=== PATIENT | male | born 1940 | race Caucasian/White ===

== ENCOUNTER 2020-02-29 13:22 | Inpatient (IN) | payer MEDICARE ==
[2020-02-29] MEDS ORDERED: SODIUM CHLORIDE 0.9% 1,000 ML IV STA (13:43)
[2020-02-29] MEDS ORDERED: MORPHINE SULFATE 4 MG/ML SYRINGE IV STA (13:43)
--- NOTE | 2020-02-29 13:46 | ED ---
General Adult HPI - General Chief complaint: Extremity Injury, Lower Stated complaint: Fall Time Seen by Provider: 02/29/20 13:29 Source: patient, EMS, RN notes reviewed Mode of arrival: EMS Limitations: altered mental status, physical limitation - History of Present Illness Initial comments: Patient is a pleasant 79-year-old male presenting to the emergency department secondary to concerns for hip fracture. [facility] is a poor historian. Patient states she does fall frequently. Patient states he fell last 3 days ago. Patient did have x-ray done showing fracture of the right hip. Patient denies any other area of complaint. Patient does request pain medication and this has been ordered. No head injury or loss of consciousness. - Related Data Allergies Allergy/AdvReac Type Severity Reaction Status Date / Time Tzxqwca-Gtf-Ojc Reductase Allergy Unknown Verified 02/29/20 13:33 Inhibitor Review of Systems ROS Statement: Those systems with pertinent positive or pertinent negative responses have been documented in the HPI. ROS Other: All systems not noted in ROS Statement are negative. Constitutional: Denies: fever Eyes: Denies: eye pain ENT: Denies: ear pain Respiratory: Denies: cough, dyspnea Cardiovascular: Denies: chest pain Endocrine: Denies: fatigue Gastrointestinal: Denies: abdominal pain Genitourinary: Denies: dysuria Musculoskeletal: Reports: as per HPI. Denies: back pain Skin: Denies: rash Past Medical History Past Medical History: Coronary Artery Disease (CAD), COPD, Diabetes Mellitus, GERD/Reflux, Hyperlipidemia, Liver Disease, Renal Disease Additional Past Medical History / Comment(s): pancreatitis History of Any Multi-Drug Resistant Organisms: None Reported Past Surgical History: Orthopedic Surgery Additional Past Surgical History / Comment(s): Left knee arthroplasty Past Psychological History: No Psychological Hx Reported Smoking Status: Never smoker Past Alcohol Use History: None Reported Past Drug Use History: None Reported General Exam Limitations: altered mental status, physical limitation General appearance: alert, in no apparent distress Head exam: Present: atraumatic, normocephalic Eye exam: Present: normal appearance, PERRL ENT exam: Present: mucous membranes dry Neck exam: Present: normal inspection. Absent: tenderness Respiratory exam: Present: normal lung sounds bilaterally Cardiovascular Exam: Present: regular rate, normal rhythm Expanded Peripheral pulses: 2+: Dorsalis Pedis (R), Dorsalis Pedis (L) GI/Abdominal exam: Present: soft. Absent: tenderness Extremities exam: Present: tenderness (Tenderness right hip). Absent: full ROM (Limited range of motion of the right hip) Back exam: Present: normal inspection Neurological exam: Present: alert. Absent: motor sensory deficit (Limited evaluation right hip secondary to pain. Distally extremity is neurovascular intact) Psychiatric exam: Present: normal affect, normal mood Skin exam: Present: normal color Course Vital Signs 02/29/20 02/29/20 13:24 14:31 Temperature 97.6 F Pulse Rate 82 78 Respiratory 17 18 Rate Blood Pressure 150/88 117/66 O2 Sat by Pulse 99 97 Oximetry EKG Findings - EKG Comments: EKG Findings:: Sinus rhythm at 80. PVC present. SD 180. QRS 106. QT 424. QTC 49. Left axis. Normal QRS. No acute ST change. Medical Decision Making - Medical Decision Making Patient updated on plan. Orthopedics has been paged for admission. - Lab Data Result diagrams: 02/29/20 14:25 02/29/20 14:25 Lab Results 02/29/20 02/29/20 02/29/20 Range/Units 14:25 14:25 14:25 WBC 6.5 (3.8-10.6) k/uL RBC 3.64 L (4.30-5.90) m/uL Hgb 11.6 L (13.0-17.5) gm/dL Hct 34.9 L (39.0-53.0) % MCV 95.8 (80.0-100.0) fL MCH 31.8 (25.0-35.0) pg MCHC 33.2 (31.0-37.0) g/dL RDW 16.1 H (11.5-15.5) % Plt Count 89 L (150-450) k/uL Neutrophils % 68 % Lymphocytes % 16 % Monocytes % 9 % Eosinophils % 4 % Basophils % 1 % Neutrophils # 4.4 (1.3-7.7) k/uL Lymphocytes # 1.1 (1.0-4.8) k/uL Monocytes # 0.6 (0-1.0) k/uL Eosinophils # 0.3 (0-0.7) k/uL Basophils # 0.0 (0-0.2) k/uL Anisocytosis Slight PT 12.5 H (9.0-12.0) sec INR 1.2 H (<1.2) APTT 29.0 (22.0-30.0) sec Sodium 143 (137-145) mmol/L Potassium 3.2 L (3.5-5.1) mmol/L Chloride 108 H (98-107) mmol/L Carbon Dioxide 24 (22-30) mmol/L Anion Gap 11 mmol/L BUN 29 H (9-20) mg/dL Creatinine 1.12 (0.66-1.25) mg/dL Est GFR (CKD-EPI)AfAm 71 (>60 ml/min/1.73 sqM) Est GFR (CKD-EPI)NonAf 62 (>60 ml/min/1.73 sqM) Glucose 116 H (74-99) mg/dL Calcium 8.6 (8.4-10.2) mg/dL Total Bilirubin 3.1 H (0.2-1.3) mg/dL AST 37 (17-59) U/L ALT 21 (4-49) U/L Alkaline Phosphatase 193 H (38-126) U/L Total Protein 6.4 (6.3-8.2) g/dL Albumin 3.1 L (3.5-5.0) g/dL - Radiology Data Radiology results: image reviewed (X-ray right hip shows neck fracture.) Disposition Clinical Impression: Fracture of hip Disposition: ADMITTED IP TO THIS [facility] Condition: Serious Is patient prescribed a controlled substance at d/c from ED?: No Referrals: Bunny Adhikari DO [Primary Care Provider] - 1-2 days Decision Time: 15:13
[2020-02-29 14:38] LABS: Anisocytosis Slight; Basophils % (A) 1 %; Eosinophils # (A) 0.3 k/uL (0-0.7); Eosinophils % (A) 4 %; HCT 34.9 % (39.0-53.0); HGB 11.6 gm/dL (13.0-17.5); Lymphocytes # (A) 1.1 k/uL (1.0-4.8); Lymphocytes % (A) 16 %; MCH 31.8 pg (25.0-35.0); MCHC 33.2 g/dL (31.0-37.0); MCV 95.8 fL (80.0-100.0); Mean Platelet Volume 8.7; Monocytes # (A) 0.6 k/uL (0-1.0); Monocytes % (A) 9 %; Neutrophils # (A) 4.4 k/uL (1.3-7.7); Neutrophils % (A) 68 %; RBC 3.64 m/uL (4.30-5.90); RDW 16.1 % (11.5-15.5); WBC 6.5 k/uL (3.8-10.6)
[2020-02-29 14:44] LABS: Platelet Count 89 k/uL (150-450)
[2020-02-29 14:53] LABS: INR 1.2 (<1.2); Prothrombin Time 12.5 sec (9.0-12.0)
[2020-02-29 15:04] LABS: Albumin 3.1 g/dL (3.5-5.0); Calcium 8.6 mg/dL (8.4-10.2); Potassium 3.2 mmol/L (3.5-5.1); Total Bilirubin 3.1 mg/dL (0.2-1.3); Total Protein 6.4 g/dL (6.3-8.2)
--- NOTE | 2020-02-29 15:18 | XR ---
EXAMINATION TYPE: XR chest 2V DATE OF EXAM: 02/29/2020 COMPARISON: NONE TECHNIQUE: PA and lateral views submitted. HISTORY: Pain FINDINGS: The heart is prominent. Technique is limited with reduced inspiration. Subsegmental changes at both l kenna bases. No pneumothorax. Arthropathy of the shoulders. No overt failure. Degenerative change of th e spine. IMPRESSION: 1. I basilar subsegmental consolidation atelectasis related to reduced inspiration is favored over pn eumonia correlate clinically for confirmation.
--- NOTE | 2020-02-29 15:19 | XR ---
EXAMINATION TYPE: XR Hip RT and AP Pelvis DATE OF EXAM: 02/29/2020 COMPARISON: NONE HISTORY: Pain TECHNIQUE: 2 views of the right hip are obtained. FINDINGS: There is a displaced right femoral neck fracture. Difficult to characterize due to position ing. Diffuse osteopenia. Degenerative change of the spine. Postsurgical change left hip. IMPRESSION: 1. Acute displaced right femoral neck fracture.
[2020-02-29] MEDS ORDERED: MORPHINE SULFATE 4 MG/ML SYRINGE IV PRN (15:25)
[2020-02-29] MEDS ORDERED: NALOXONE 0.4 MG/ML 1 ML VIAL IV PRN (15:25)
[2020-02-29] MEDS ORDERED: Potassium Replacement Protocol 1 EACH MISC MISCELLANE PRN (16:31)
[2020-02-29] MEDS ORDERED: LACTULOSE 20 GM/30 ML CUP PO PRN (16:32)
[2020-02-29] MEDS ORDERED: MELATONIN 5 MG TABLET PO PRN (16:32)
[2020-02-29] MEDS ORDERED: ACETAMINOPHEN TAB 325 MG TAB PO PRN (16:33)
[2020-02-29] MEDS ORDERED: HYDROcodone/APAP 5-325MG 1 EACH TAB PO PRN (16:33)
--- NOTE | 2020-02-29 18:23 | P.HPIM ---
History of Present Illness H&P Date: 02/29/20 Patient is mostly nonverbal and majority of H&P is obtained from documentation. 79-year-old male with PMH of diabetes mellitus, COPD, CAD, GERD presents to the ED from [facility] for hip pain. Apparently, he had a fall 3 days ago. X-ray was done which showed acute displaced right femoral neck fracture. Patient is admitted for further management and orthopedic surgery evaluation. In the ED, his vital signs were stable. CBC showed hemoglobin of 11.6 and platelet count of 89. INR was 1.2. CMP showed potassium of 3.2, chloride 108, BUN 29, glucose 116, total bilirubin 3.1, alkaline phosphatase 193. Chest x-ray shows basilar subsegmental atelectasis. Review of Systems Unable to obtain Past Medical History Past Medical History: Coronary Artery Disease (CAD), COPD, Diabetes Mellitus, GERD/Reflux, Hyperlipidemia, Liver Disease, Renal Disease Additional Past Medical History / Comment(s): pancreatitis History of Any Multi-Drug Resistant Organisms: None Reported Past Surgical History: Orthopedic Surgery Additional Past Surgical History / Comment(s): Left knee arthroplasty Past Psychological History: No Psychological Hx Reported Smoking Status: Never smoker Past Alcohol Use History: None Reported Past Drug Use History: None Reported Medications and Allergies Home Medications Medication Instructions Recorded Confirmed Type Acetaminophen Tab [Tylenol Tab] 500 mg PO Q6HR PRN 02/29/20 02/29/20 History Furosemide [Lasix] 80 mg PO DAILY 02/29/20 02/29/20 History Gabapentin [Neurontin] 400 mg PO TID@0800,1400,2200 02/29/20 02/29/20 History Lactulose 20 gm PO BID@0900,2100 02/29/20 02/29/20 History Melatonin 5 mg PO HS PRN 02/29/20 02/29/20 History Multivitamins, Thera [Multivitamin 1 tab PO DAILY@89902/29/20 02/29/20 History (formulary)] Nitroglycerin Sl Tabs [Nitrostat] 0.4 mg SUBLINGUAL Q5M PRN 02/29/20 02/29/20 History Prostat 30 ml PO DAILY 02/29/20 02/29/20 History Spironolactone 25 mg PO DAILY@0902/29/20 02/29/20 History Tamsulosin [Flomax] 0.4 mg PO DAILY 02/29/20 02/29/20 History Venlafaxine HCl [Effexor XR] 150 mg PO DAILY@0900 02/29/20 02/29/20 History metFORMIN HCL [Glucophage] 500 mg PO BID@0900,1700 02/29/20 02/29/20 History Allergies Allergy/AdvReac Type Severity Reaction Status Date / Time Khuyijw-Kyw-Lfq Reductase Allergy Unknown Verified 02/29/20 15:15 Inhibitor Physical Exam Vitals: Vital Signs Temp Pulse Pulse Resp BP BP Pulse Ox 02/29/20 16:10 97.7 F 67 16 151/94 100 02/29/20 14:31 78 18 117/66 97 02/29/20 13:24 97.6 F 82 17 150/88 99 Intake and Output 02/29/20 02/29/20 02/29/20 06:59 14:59 22:59 Other: Weight 79.197 kg 79.197 kg General: [non toxic], [no distress], [appears at stated age] Derm: [warm], [dry] Head: [atraumatic], [normocephalic], [symmetric] Eyes: [EOMI], [no lid lag], [anicteric sclera] Mouth: [no lip lesion], [mucus membranes moist] Cardiovascular: [S1S2 reg], [no murmur], [positive DP pulse bilateral], Lungs: [Decreased breath sounds bilateral], [no rhonchi, no rales] , [no acces richard muscle use] Abdominal: [soft], [ nontender to palpation], [no guarding], [no appreciable organomegaly] Ext: [no gross muscle atrophy], [no edema], [no contractures], restricted range of motion in the right hip due to pain Neuro: [Unable to determine] Psych: [Unable to determine] Patient is nonverbal Results CBC & Chem 7: 02/29/20 14:25 02/29/20 14:25 Labs: Abnormal Lab Results - Last 24 Hours (Table) 02/29/20 02/29/20 02/29/20 Range/Units 14:25 14:25 14:25 RBC 3.64 L (4.30-5.90) m/uL Hgb 11.6 L (13.0-17.5) gm/dL Hct 34.9 L (39.0-53.0) % RDW 16.1 H (11.5-15.5) % Plt Count 89 L (150-450) k/uL PT 12.5 H (9.0-12.0) sec INR 1.2 H (<1.2) Potassium 3.2 L (3.5-5.1) mmol/L Chloride 108 H (98-107) mmol/L BUN 29 H (9-20) mg/dL Glucose 116 H (74-99) mg/dL Total Bilirubin 3.1 H (0.2-1.3) mg/dL Alkaline Phosphatase 193 H (38-126) U/L Albumin 3.1 L (3.5-5.0) g/dL Assessment and Plan Assessment: Right femoral neck fracture Hypokalemia Elevated BUN Elevated total bilirubin Diabetes mellitus Normocytic anemia Thrombocytopenia Chronic conditions: CAD, COPD, GERD, dyslipidemia As seen on hip x-ray. Plans: Fall precautions. Nonweightbearing until evaluation by orthopedic surgery. Follow PT and OT recommendations. Pain management with [place] and morphine as needed. Potassium 3.2. Plans: Replace via protocol. Repeat CMP tomorrow morning. BUN 29. Likely related to dehydration. Plans: Continue normal saline at 50 mL per hour. Avoid nephrotoxins. Repeat CMP tomorrow morning. Total bilirubin 3.1. Likely related to dehydration. Plans: IV hydration as above. Repeat CMP tomorrow morning. Plans: Insulin sliding scale. Regular Accu-Cheks. Hypoglycemic precautions. Hemoglobin 11.6. Platelet count 89. Plans: Continue to monitor. No signs of active bleeding. Avoid heparin for now. Repeat CBC tomorrow morning. DVT prophylaxis: [SCD] Discussed with: [Patient and nurse] Anticipated discharge: [2-3 days] Anticipated discharge place: [[facility]] A total of [45] minutes was spent on the care of this complex patient more than 50% of the time was spent in counseling and care coordination.
[2020-02-29] MEDS: POTASSIUM CHLORIDE ER 20 MEQ TAB.ER PO SCH ×2 (19:01→20:30)
[2020-02-29] MEDS ORDERED: HEPARIN SODIUM,PORCINE 5,000 UNIT/ML 1 ML VIAL SQ SCH (21:00)
[2020-02-29] MEDS: GABAPENTIN 400 MG CAP PO SCH (21:27)
[2020-02-29] MEDS: MORPHINE SULFATE 4 MG/ML SYRINGE IV PRN (21:27)
[2020-03-01] MEDS: MORPHINE SULFATE 4 MG/ML SYRINGE IV PRN (01:04)
[2020-03-01 06:52] LABS: Anisocytosis Slight; Basophils % (A) 1 %; Eosinophils # (A) 0.5 k/uL (0-0.7); Eosinophils % (A) 9 %; HCT 31.2 % (39.0-53.0); HGB 10.2 gm/dL (13.0-17.5); Lymphocytes # (A) 1.2 k/uL (1.0-4.8); Lymphocytes % (A) 21 %; MCH 31.8 pg (25.0-35.0); MCHC 32.5 g/dL (31.0-37.0); MCV 97.7 fL (80.0-100.0); Macrocytosis Slight; Monocytes # (A) 0.4 k/uL (0-1.0); Monocytes % (A) 7 %; Neutrophils # (A) 3.4 k/uL (1.3-7.7); Neutrophils % (A) 60 %; RDW 16.3 % (11.5-15.5); WBC 5.7 k/uL (3.8-10.6)
[2020-03-01 06:57] LABS: Platelet Count 85 k/uL (150-450)
[2020-03-01 07:28] LABS: Glucose,Whole Blood 112 mg/dL (75-99)
[2020-03-01] MEDS: INSULIN ASPART (NovoLOG) 100 UNIT/ML VIAL SQ SCH ×3 (07:35→17:08)
[2020-03-01] MEDS: GABAPENTIN 400 MG CAP PO SCH ×3 (09:09→21:20)
[2020-03-01] MEDS: SPIRONOLACTONE 25 MG TAB PO SCH (09:10)
[2020-03-01] MEDS: TAMSULOSIN 0.4 MG CAP.ER.24H PO SCH (09:10)
[2020-03-01] MEDS: VENLAFAXINE HCL ER 150 MG CAP PO SCH (09:10)
[2020-03-01 09:11] LABS: African American GFR (CKD) 72.6 (60.0-200.0); Albumin 2.7 g/dL (3.80-4.90); Albumin/Globulin Ratio 1.17 (1.60-3.17); Anion Gap 9.4 mmol/L (4.00-12.00); BUN/Creat Ratio 27.27 Ratio (12.00-20.00); Calcium 7.8 mg/dL (8.7-10.3); Carbon Dioxide 27.6 mmol/L (21.6-31.8); Globulin 2.3 g/dL (1.6-3.3); Non-African American GFR(CKD) 62.6 (60.0-200.0); Potassium 3.5 mmol/L (3.5-5.5); Total Bilirubin 2.4 mg/dL (0.2-1.2)
[2020-03-01 11:36] LABS: Glucose,Whole Blood 172 mg/dL (75-99)
--- NOTE | 2020-03-01 12:49 | P.CNOR ---
History of Present Illness - [facility] Consult date: 03/01/20 Consult reason: fracture History of present illness: Patient is 79-year-old male seen at bedside today in consultation for right hip fracture. He is not oriented to time or place. He appears to be alert and in no acute distress however. Unfortunately is not able to answer respond to very many questions.. Most information is obtained through staff and documentation. He was apparently admitted through the emergency department yesterday February 28 after being transferred from [facility] in [place]. Documentation states that he had fallen a few days ago and x-rays were obtained showing a right hip fracture. It is not known that whether he was previously ambulating or not. Patient is denying any pain currently at bedside today. Review of systems and other is otherwise unobtainable due to current mental status. Review of Systems ROS unobtainable: due to mental status Past Medical History Past Medical History: Coronary Artery Disease (CAD), COPD, Diabetes Mellitus, GERD/Reflux, Hyperlipidemia, Liver Disease, Renal Disease Additional Past Medical History / Comment(s): pancreatitis History of Any Multi-Drug Resistant Organisms: None Reported Past Surgical History: Orthopedic Surgery Additional Past Surgical History / Comment(s): Left knee arthroplasty Past Psychological History: No Psychological Hx Reported Smoking Status: Never smoker Past Alcohol Use History: None Reported Past Drug Use History: None Reported Medications and Allergies Home Medications Medication Instructions Recorded Confirmed Type Acetaminophen Tab [Tylenol Tab] 500 mg PO Q6HR PRN 02/29/20 02/29/20 History Furosemide [Lasix] 80 mg PO DAILY 02/29/20 02/29/20 History Gabapentin [Neurontin] 400 mg PO TID@0800,1400,2200 02/29/20 02/29/20 History Lactulose 20 gm PO BID@0900,2100 02/29/20 02/29/20 History Melatonin 5 mg PO HS PRN 02/29/20 02/29/20 History Multivitamins, Thera [Multivitamin 1 tab PO DAILY@89902/29/20 02/29/20 History (formulary)] Nitroglycerin Sl Tabs [Nitrostat] 0.4 mg SUBLINGUAL Q5M PRN 02/29/20 02/29/20 History Prostat 30 ml PO DAILY 02/29/20 02/29/20 History Spironolactone 25 mg PO DAILY@0900 02/29/20 02/29/20 History Tamsulosin [Flomax] 0.4 mg PO DAILY 02/29/20 02/29/20 History Venlafaxine HCl [Effexor XR] 150 mg PO DAILY@0902/29/20 02/29/20 History metFORMIN HCL [Glucophage] 500 mg PO BID@0900,1700 02/29/20 02/29/20 History Allergies Allergy/AdvReac Type Severity Reaction Status Date / Time Xpxhach-Fdz-Nro Reductase Allergy Unknown Verified 02/29/20 15:15 Inhibitor Physical Examination Inspection of bilateral lower extremity shows a shortened externally rotated right leg. Left leg is shortened and internally rotated. There are no wounds or erythema. There is no other deformity. Range of motion of the hips are not tested due to previous fractures. Calves are soft and nontender. Motor and sensation is grossly intact as he is able to respond with flexion-extension of both feet and toes. 2+ dorsalis pedis pulse and less than 2 second capillary refill is present in both. Results X-ray of the pelvis and hips show there is previous IT nail on the left side for previous fracture where the IM hip screw appears to be entered into the acetabulum. On the right side there appears to be a subacute versus chronic femoral neck fracture with shortening. - Labs Labs: Abnormal Lab Results - Last 24 Hours (Table) 02/29/20 02/29/20 02/29/20 Range/Units 14:25 14:25 14:25 RBC 3.64 L (4.30-5.90) m/uL Hgb 11.6 L (13.0-17.5) gm/dL Hct 34.9 L (39.0-53.0) % RDW 16.1 H (11.5-15.5) % Plt Count 89 L (150-450) k/uL PT 12.5 H (9.0-12.0) sec INR 1.2 H (<1.2) Potassium 3.2 L (3.5-5.1) mmol/L Chloride 108 H (98-107) mmol/L BUN 29 H (9-20) mg/dL BUN/Creatinine Ratio (12.00-20.00) Ratio Glucose 116 H (74-99) mg/dL POC Glucose (mg/dL) (75-99) mg/dL Calcium (8.7-10.3) mg/dL Total Bilirubin 3.1 H (0.2-1.3) mg/dL Alkaline Phosphatase 193 H (38-126) U/L Total Protein (6.2-8.2) g/dL Albumin 3.1 L (3.5-5.0) g/dL Albumin/Globulin Ratio (1.60-3.17) g/dL 03/01/20 03/01/20 03/01/20 Range/Units 06:01 06:01 07:26 RBC 3.20 L (4.30-5.90) m/uL Hgb 10.2 L (13.0-17.5) gm/dL Hct 31.2 L (39.0-53.0) % RDW 16.3 H (11.5-15.5) % Plt Count 85 L (150-450) k/uL PT (9.0-12.0) sec INR (<1.2) Potassium (3.5-5.1) mmol/L Chloride (98-107) mmol/L BUN 30.0 H (9-20) mg/dL BUN/Creatinine Ratio 27.27 H (12.00-20.00) Ratio Glucose (74-99) mg/dL POC Glucose (mg/dL) 112 H (75-99) mg/dL Calcium 7.8 L (8.7-10.3) mg/dL Total Bilirubin 2.4 H (0.2-1.3) mg/dL Alkaline Phosphatase 172 H (38-126) U/L Total Protein 5.0 L (6.2-8.2) g/dL Albumin 2.70 L (3.5-5.0) g/dL Albumin/Globulin Ratio 1.17 L (1.60-3.17) g/dL 03/01/20 Range/Units 11:32 RBC (4.30-5.90) m/uL Hgb (13.0-17.5) gm/dL Hct (39.0-53.0) % RDW (11.5-15.5) % Plt Count (150-450) k/uL PT (9.0-12.0) sec INR (<1.2) Potassium (3.5-5.1) mmol/L Chloride (98-107) mmol/L BUN (9-20) mg/dL BUN/Creatinine Ratio (12.00-20.00) Ratio Glucose (74-99) mg/dL POC Glucose (mg/dL) 172 H (75-99) mg/dL Calcium (8.7-10.3) mg/dL Total Bilirubin (0.2-1.3) mg/dL Alkaline Phosphatase (38-126) U/L Total Protein (6.2-8.2) g/dL Albumin (3.5-5.0) g/dL Albumin/Globulin Ratio (1.60-3.17) g/dL H & H 02/29/20 03/01/20 Range/Units 14:25 06:01 Hgb 11.6 L 10.2 L (13.0-17.5) gm/dL Hct 34.9 L 31.2 L (39.0-53.0) % Coagulation 02/29/20 Range/Units 14:25 INR 1.2 H (<1.2) Result Diagrams: 03/01/20 06:01 03/01/20 06:01 - Diagnostic results Hip x-ray: report reviewed, image reviewed Assessment and Plan (1) Fracture of hip Narrative/Plan: The patient and imaging have been reviewed with Dr. Rai. He does not recommend immediate surgical intervention as the fracture on the right appears to be chronic versus subacute as well as he likely has not been ambulating due to the migration and placement of the IM hip screw from previous left-sided hip fracture repair. Recommend continued pain management and long-term supportive/comfort measures. We'll request information regarding his prior ambulating status and where he had previous left hip fracture repair performed and when. Current Visit: Yes Status: Acute Code(s): S72.009A - FRACTURE OF UNSP PART OF NECK OF UNSP FEMUR, INIT SNOMED Code(s): 086453391 Time with Patient: Less than 30
--- NOTE | 2020-03-01 16:03 | P.PN ---
Subjective Progress Note Date: 03/01/20 Patient seen and examined. No acute events overnight. She reports well- controlled pain in his right hip. He denies any chest pain, shortness breath or palpitations. No nausea or vomiting. No fever or chills. More verbal than yesterday. Objective - Vital Signs Vital signs: Vital Signs Temp 97.9 F 03/01/20 14:12 Pulse 68 03/01/20 14:12 Resp 16 03/01/20 14:12 BP 108/66 03/01/20 14:12 Pulse Ox 92 L 03/01/20 14:12 Intake & Output 02/29/20 03/01/20 03/01/20 18:59 06:59 18:59 Intake Total 300 Balance 300 Weight 79.197 kg Intake: Intake, IV Titration 300 Amount Sodium Chloride 0.9% 1, 300 000 ml @ 50 mls/hr IV . Q20H STA Rx#:[id number] Other: Voiding Method Incontinent Diaper # Voids 2 - Exam General: [non toxic], [no distress], [appears at stated age] Derm: [warm], [dry] Head: [atraumatic], [normocephalic], [symmetric] Eyes: [EOMI], [no lid lag], [anicteric sclera] Mouth: [no lip lesion], [mucus membranes moist] Cardiovascular: [S1S2 reg], [no murmur], [positive DP pulse bilateral], Lungs: [Decreased breath sounds bilateral], [no rhonchi, no rales] , [no accessory muscle use] Abdominal: [soft], [ nontender to palpation], [no guarding], [no appreciable organomegaly] Ext: [no gross muscle atrophy], [no edema], [no contractures], restricted range of motion in the right hip due to pain Neuro: [No focal neurologic deficits] Psych: [Alert and oriented 1] - Labs CBC & Chem 7: 03/01/20 06:01 03/01/20 06:01 Labs: Abnormal Lab Results - Last 24 Hours (Table) 03/01/20 03/01/20 03/01/20 Range/Units 06:01 06:01 07:26 RBC 3.20 L (4.30-5.90) m/uL Hgb 10.2 L (13.0-17.5) gm/dL Hct 31.2 L (39.0-53.0) % RDW 16.3 H (11.5-15.5) % Plt Count 85 L (150-450) k/uL BUN 30.0 H (9.0-27.0) mg/dL BUN/Creatinine Ratio 27.27 H (12.00-20.00) Ratio POC Glucose (mg/dL) 112 H (75-99) mg/dL Calcium 7.8 L (8.7-10.3) mg/dL Total Bilirubin 2.4 H (0.2-1.2) mg/dL Alkaline Phosphatase 172 H (41-126) U/L Ammonia (<30) umol/L Total Protein 5.0 L (6.2-8.2) g/dL Albumin 2.70 L (3.80-4.90) g/dL Albumin/Globulin Ratio 1.17 L (1.60-3.17) g/dL 03/01/20 03/01/20 Range/Units 11:32 13:17 RBC (4.30-5.90) m/uL Hgb (13.0-17.5) gm/dL Hct (39.0-53.0) % RDW (11.5-15.5) % Plt Count (150-450) k/uL BUN (9.0-27.0) mg/dL BUN/Creatinine Ratio (12.00-20.00) Ratio POC Glucose (mg/dL) 172 H (75-99) mg/dL Calcium (8.7-10.3) mg/dL Total Bilirubin (0.2-1.2) mg/dL Alkaline Phosphatase (41-126) U/L Ammonia 69 H (<30) umol/L Total Protein (6.2-8.2) g/dL Albumin (3.80-4.90) g/dL Albumin/Globulin Ratio (1.60-3.17) g/dL Assessment and Plan Assessment: Right femoral neck fracture Elevated BUN Elevated total bilirubin Diabetes mellitus Normocytic anemia Thrombocytopenia Chronic conditions: CAD, COPD, GERD, dyslipidemia As seen on hip x-ray. Plans: Fall precautions. Nonweightbearing until evaluation by orthopedic surgery. Follow PT and OT recommendations. Pain management with [place] and morphine as needed. Social work for placement. BUN 29-30. Likely related to dehydration. Plans: Continue normal saline at 50 mL per hour. Avoid nephrotoxins. Repeat CMP tomorrow morning. Total bilirubin 3.1-2.4. Likely related to dehydration. Plans: IV hydration as above. Repeat CMP tomorrow morning. Plans: Insulin sliding scale. Regular Accu-Cheks. Hypoglycemic precautions. Hemoglobin 11.6-10.2. Platelet count 89-85. Plans: Continue to monitor. No signs of active bleeding. Avoid heparin for now. Repeat CBC tomorrow morning. DVT prophylaxis: [SCD] Discussed with: [Patient and nurse] Anticipated discharge: [2-3 days] Anticipated discharge place: [[facility]] A total of [45] minutes was spent on the care of this complex patient more than 50% of the time was spent in counseling and care coordination. [Patient admitted for right femoral neck fracture. Orthopedic surgery recommended conservative management. We'll need placement. Social work on board.]
[2020-03-01 17:06] LABS: Glucose,Whole Blood 114 mg/dL (75-99)
[2020-03-01] MEDS: SODIUM CHLORIDE 0.9% 1,000 ML IV SCH (17:08)
[2020-03-01 20:35] LABS: Glucose,Whole Blood 130 mg/dL (75-99)
[2020-03-02 06:40] LABS: Anisocytosis Slight; HCT 29.4 % (39.0-53.0); HGB 9.8 gm/dL (13.0-17.5); MCH 32.6 pg (25.0-35.0); MCHC 33.3 g/dL (31.0-37.0); MCV 97.6 fL (80.0-100.0); Macrocytosis Slight; Mean Platelet Volume 8.7; RBC 3.01 m/uL (4.30-5.90); RDW 16.5 % (11.5-15.5)
[2020-03-02 06:47] LABS: Platelet Count 73 k/uL (150-450)
[2020-03-02 07:23] LABS: Glucose,Whole Blood 113 mg/dL (75-99)
[2020-03-02] MEDS: INSULIN ASPART (NovoLOG) 100 UNIT/ML VIAL SQ SCH ×3 (07:57→17:39)
[2020-03-02] MEDS: SPIRONOLACTONE 25 MG TAB PO SCH (08:23)
[2020-03-02] MEDS: GABAPENTIN 400 MG CAP PO SCH ×3 (08:23→21:02)
[2020-03-02] MEDS: VENLAFAXINE HCL ER 150 MG CAP PO SCH (08:23)
[2020-03-02] MEDS: TAMSULOSIN 0.4 MG CAP.ER.24H PO SCH (08:23)
[2020-03-02 09:24] LABS: African American GFR (CKD) 81.4 (60.0-200.0); Albumin 2.6 g/dL (3.80-4.90); Albumin/Globulin Ratio 1.18 (1.60-3.17); Anion Gap 7.1 mmol/L (4.00-12.00); Calcium 7.9 mg/dL (8.7-10.3); Carbon Dioxide 25.9 mmol/L (21.6-31.8); Globulin 2.2 g/dL (1.6-3.3); Non-African American GFR(CKD) 70.3 (60.0-200.0); Potassium 3.5 mmol/L (3.5-5.5); Total Bilirubin 2.3 mg/dL (0.2-1.2); Total Protein 4.8 g/dL (6.2-8.2)
--- NOTE | 2020-03-02 10:10 | P.PN ---
Subjective Progress Note Date: 03/02/20 Patient seen and examined. No acute events overnight. She reports well- controlled pain in his right hip. He denies any chest pain, shortness breath or palpitations. No nausea or vomiting. No fever or chills. Hemoglobin dropped from 10.2-9.8, 11.6 on admission. Objective - Vital Signs Vital signs: Vital Signs Temp 98.0 F 03/02/20 08:12 Pulse 66 03/02/20 08:12 Resp 12 03/02/20 08:12 BP 116/53 03/01/20 23:49 Pulse Ox 96 03/02/20 08:12 Intake & Output 03/01/20 03/02/20 03/02/20 18:59 06:59 18:59 Intake Total 300 Balance 300 Intake: Intake, IV Titration 300 Amount Sodium Chloride 0.9% 1, 300 000 ml @ 50 mls/hr IV . Q20H STA Rx#:[id number] Other: Voiding Method Diaper Diaper # Voids 1 1 - Exam General: [non toxic], [no distress], [appears at stated age] Derm: [warm], [dry] Head: [atraumatic], [normocephalic], [symmetric] Eyes: [EOMI], [no lid lag], [anicteric sclera] Mouth: [no lip lesion], [mucus membranes moist] Cardiovascular: [S1S2 reg], [no murmur], [positive DP pulse bilateral], Lungs: [Decreased breath sounds bilateral], [no rhonchi, no rales] , [no accessory muscle use] Abdominal: [soft], [ nontender to palpation], [no guarding], [no appreciable organomegaly] Ext: [no gross muscle atrophy], [no edema], [no contractures], restricted range of motion in the right hip due to pain Neuro: [No focal neurologic deficits] Psych: [Alert and oriented 1] - Labs CBC & Chem 7: 03/02/20 06:23 03/02/20 06:23 Labs: Abnormal Lab Results - Last 24 Hours (Table) 03/01/20 03/01/20 03/01/20 Range/Units 11:32 13:17 16:50 RBC (4.30-5.90) m/uL Hgb (13.0-17.5) gm/dL Hct (39.0-53.0) % RDW (11.5-15.5) % Plt Count (150-450) k/uL Sodium (135-145) mmol/L Chloride (96-109) mmol/L BUN/Creatinine Ratio (12.00-20.00) Ratio POC Glucose (mg/dL) 172 H 114 H (75-99) mg/dL Calcium (8.7-10.3) mg/dL Total Bilirubin (0.2-1.2) mg/dL Alkaline Phosphatase (41-126) U/L Ammonia 69 H (<30) umol/L Total Protein (6.2-8.2) g/dL Albumin (3.80-4.90) g/dL Albumin/Globulin Ratio (1.60-3.17) g/dL 03/01/20 03/02/20 03/02/20 Range/Units 20:22 06:23 06:23 RBC 3.01 L (4.30-5.90) m/uL Hgb 9.8 L (13.0-17.5) gm/dL Hct 29.4 L (39.0-53.0) % RDW 16.5 H (11.5-15.5) % Plt Count 73 L (150-450) k/uL Sodium 146 H (135-145) mmol/L Chloride 113 H (96-109) mmol/L BUN/Creatinine Ratio 25.00 H (12.00-20.00) Ratio POC Glucose (mg/dL) 130 H (75-99) mg/dL Calcium 7.9 L (8.7-10.3) mg/dL Total Bilirubin 2.3 H (0.2-1.2) mg/dL Alkaline Phosphatase 164 H (41-126) U/L Ammonia (<30) umol/L Total Protein 4.8 L (6.2-8.2) g/dL Albumin 2.60 L (3.80-4.90) g/dL Albumin/Globulin Ratio 1.18 L (1.60-3.17) g/dL 03/02/20 Range/Units 07:14 RBC (4.30-5.90) m/uL Hgb (13.0-17.5) gm/dL Hct (39.0-53.0) % RDW (11.5-15.5) % Plt Count (150-450) k/uL Sodium (135-145) mmol/L Chloride (96-109) mmol/L BUN/Creatinine Ratio (12.00-20.00) Ratio POC Glucose (mg/dL) 113 H (75-99) mg/dL Calcium (8.7-10.3) mg/dL Total Bilirubin (0.2-1.2) mg/dL Alkaline Phosphatase (41-126) U/L Ammonia (<30) umol/L Total Protein (6.2-8.2) g/dL Albumin (3.80-4.90) g/dL Albumin/Globulin Ratio (1.60-3.17) g/dL Assessment and Plan Assessment: Right femoral neck fracture Acute blood loss anemia Elevated total bilirubin Diabetes mellitus Thrombocytopenia Chronic conditions: CAD, COPD, GERD, dyslipidemia As seen on hip x-ray. Plans: Fall precautions. Nonweightbearing until evaluation by orthopedic surgery. Follow PT and OT recommendations. Pain management with [place] and morphine as needed. Social work for placement. Hemoglobin 9.8. Likely from hip fracture. Plans: Conservative management. Repeat CBC tomorrow morning. Transfuse if hemoglobin less than 7. Total bilirubin 3.1-2.4-2.3. Likely related to dehydration. Plans: IV hydration as above. Repeat CMP tomorrow morning. Plans: Insulin sliding scale. Regular Accu-Cheks. Hypoglycemic precautions. Platelet count 89-85. Plans: Continue to monitor. No signs of active bleeding. Avoid heparin for now. Repeat CBC tomorrow morning. DVT prophylaxis: [SCD] Discussed with: [Patient and nurse] Anticipated discharge: [2-3 days] Anticipated discharge place: [[facility]] A total of [45] minutes was spent on the care of this complex patient more than 50% of the time was spent in counseling and care coordination. [Patient admitted for right femoral neck fracture. Orthopedic surgery recommended conservative management. We'll need placement. Social work on board.]
[2020-03-02 11:43] LABS: Glucose,Whole Blood 123 mg/dL (75-99)
--- NOTE | 2020-03-02 12:31 | P.CONS ---
History of Present Illness - Reason for Consult Consult date: 03/02/20 Wound care - History of Present Illness This is an 79-year-old patient who is being seen by the wound care center on [address] for nonhealing ulceration to the left calcaneus. Per the patient's chart patient is a resident of [facility] and has been undergoing treatment for a pressure ulcer to the left calcaneus. Patient had foam in place. Unsure about how long the ulceration has been present. Review of Systems ROS unobtainable: due to mental status Past Medical History Past Medical History: Coronary Artery Disease (CAD), COPD, Diabetes Mellitus, GERD/Reflux, Hyperlipidemia, Liver Disease, Renal Disease Additional Past Medical History / Comment(s): pancreatitis History of Any Multi-Drug Resistant Organisms: None Reported Past Surgical History: Orthopedic Surgery Additional Past Surgical History / Comment(s): Left knee arthroplasty Past Psychological History: No Psychological Hx Reported Smoking Status: Never smoker Past Alcohol Use History: None Reported Past Drug Use History: None Reported Medications and Allergies Home Medications Medication Instructions Recorded Confirmed Type Acetaminophen Tab [Tylenol Tab] 500 mg PO Q6HR PRN 02/29/20 02/29/20 History Furosemide [Lasix] 80 mg PO DAILY 02/29/20 02/29/20 History Gabapentin [Neurontin] 400 mg PO TID@0800,1400,2200 02/29/20 02/29/20 History Lactulose 20 gm PO BID@0900,2100 02/29/20 02/29/20 History Melatonin 5 mg PO HS PRN 02/29/20 02/29/20 History Multivitamins, Thera [Multivitamin 1 tab PO DAILY@89902/29/20 02/29/20 History (formulary)] Nitroglycerin Sl Tabs [Nitrostat] 0.4 mg SUBLINGUAL Q5M PRN 02/29/20 02/29/20 History Prostat 30 ml PO DAILY 02/29/20 02/29/20 History Spironolactone 25 mg PO DAILY@89902/29/20 02/29/20 History Tamsulosin [Flomax] 0.4 mg PO DAILY 02/29/20 02/29/20 History Venlafaxine HCl [Effexor XR] 150 mg PO DAILY@89902/29/20 02/29/20 History metFORMIN HCL [Glucophage] 500 mg PO BID@0900,1700 02/29/20 02/29/20 History Allergies Allergy/AdvReac Type Severity Reaction Status Date / Time [id number] Reductase Allergy Unknown Verified 02/29/20 15:15 Inhibitor Physical Exam Vitals: Vital Signs Temp Pulse Pulse Resp BP Pulse Ox 03/02/20 08:12 98.0 F 66 12 96 03/02/20 08:00 71 16 03/01/20 23:49 99.6 F 71 16 116/53 95 03/01/20 19:20 98.3 F 74 18 122/72 96 03/01/20 14:12 97.9 F 68 16 108/66 92 L 03/01/20 12:38 97 F L 76 16 108/63 90 L Intake and Output 03/01/20 03/02/20 03/02/20 22:59 06:59 14:59 Other: Voiding Method Diaper Diaper # Voids 1 1 1 Physical exam: General Appearance: Alert, cooperative, no distress, appears stated age. Skin: Nonhealing pressure ulcer to the left calcaneus with fatty layer exposure measuring approximately 1 x 1.9 x 0.2 cm granulation seen throughout the wound bed with minimal slough, wound edges are attached to the wound base. Maceration is noted to the periwound. all other Skin color, texture, tugor normal, no rashes or lesions. Neurologic: Alert oriented x3 Results CBC & Chem 7: 03/02/20 06:23 03/02/20 06:23 Labs: Abnormal Lab Results - Last 24 Hours (Table) 03/01/20 03/01/20 03/01/20 Range/Units 13:17 16:50 20:22 RBC (4.30-5.90) m/uL Hgb (13.0-17.5) gm/dL Hct (39.0-53.0) % RDW (11.5-15.5) % Plt Count (150-450) k/uL Sodium (135-145) mmol/L Chloride (96-109) mmol/L BUN/Creatinine Ratio (12.00-20.00) Ratio POC Glucose (mg/dL) 114 H 130 H (75-99) mg/dL Calcium (8.7-10.3) mg/dL Total Bilirubin (0.2-1.2) mg/dL Alkaline Phosphatase (41-126) U/L Ammonia 69 H (<30) umol/L Total Protein (6.2-8.2) g/dL Albumin (3.80-4.90) g/dL Albumin/Globulin Ratio (1.60-3.17) g/dL 03/02/20 03/02/20 03/02/20 Range/Units 06:23 06:23 07:14 RBC 3.01 L (4.30-5.90) m/uL Hgb 9.8 L (13.0-17.5) gm/dL Hct 29.4 L (39.0-53.0) % RDW 16.5 H (11.5-15.5) % Plt Count 73 L (150-450) k/uL Sodium 146 H (135-145) mmol/L Chloride 113 H (96-109) mmol/L BUN/Creatinine Ratio 25.00 H (12.00-20.00) Ratio POC Glucose (mg/dL) 113 H (75-99) mg/dL Calcium 7.9 L (8.7-10.3) mg/dL Total Bilirubin 2.3 H (0.2-1.2) mg/dL Alkaline Phosphatase 164 H (41-126) U/L Ammonia (<30) umol/L Total Protein 4.8 L (6.2-8.2) g/dL Albumin 2.60 L (3.80-4.90) g/dL Albumin/Globulin Ratio 1.18 L (1.60-3.17) g/dL 03/02/20 Range/Units 11:34 RBC (4.30-5.90) m/uL Hgb (13.0-17.5) gm/dL Hct (39.0-53.0) % RDW (11.5-15.5) % Plt Count (150-450) k/uL Sodium (135-145) mmol/L Chloride (96-109) mmol/L BUN/Creatinine Ratio (12.00-20.00) Ratio POC Glucose (mg/dL) 123 H (75-99) mg/dL Calcium (8.7-10.3) mg/dL Total Bilirubin (0.2-1.2) mg/dL Alkaline Phosphatase (41-126) U/L Ammonia (<30) umol/L Total Protein (6.2-8.2) g/dL Albumin (3.80-4.90) g/dL Albumin/Globulin Ratio (1.60-3.17) g/dL Assessment and Plan (1) Pressure ulcer of left heel, stage 2 Current Visit: Yes Status: Acute Code(s): L89.622 - PRESSURE ULCER OF LEFT HEEL, STAGE 2 SNOMED Code(s): 929812037 Plan: Apply collagen, saline moist gauze, foam change Friday. Utilize foam heel protectors. Patient may benefit from outpatient wound care therapy. Thank you, for the consultation any questions please contact the wound care center DNP note has been reviewed and discussed with Dr. Berrios and the impression and plan of care has been directed as dictated.
[2020-03-02] MEDS: SODIUM CHLORIDE 0.9% 1,000 ML IV SCH (13:06)
[2020-03-02 13:32] VITALS: BMI 25.0
[2020-03-02 17:05] LABS: Glucose,Whole Blood 109 mg/dL (75-99)
[2020-03-02 21:17] LABS: Glucose,Whole Blood 100 mg/dL (75-99)
[2020-03-03 02:43] VITALS: PULSE 64
[2020-03-03 06:54] LABS: Glucose,Whole Blood 83 mg/dL (75-99)
[2020-03-03] MEDS: INSULIN ASPART (NovoLOG) 100 UNIT/ML VIAL SQ SCH ×2 (07:09→12:19)
[2020-03-03 07:43] VITALS: BP 161/62; RESP 18; TEMP 97.8
[2020-03-03] MEDS: TAMSULOSIN 0.4 MG CAP.ER.24H PO SCH (07:56)
[2020-03-03] MEDS: VENLAFAXINE HCL ER 150 MG CAP PO SCH (07:56)
[2020-03-03] MEDS: SODIUM CHLORIDE 0.9% 1,000 ML IV SCH (07:56)
[2020-03-03] MEDS: GABAPENTIN 400 MG CAP PO SCH ×2 (07:56→14:07)
[2020-03-03] MEDS: SPIRONOLACTONE 25 MG TAB PO SCH (07:56)
[2020-03-03 11:03] LABS: Anisocytosis Slight; HCT 27.8 % (39.0-53.0); HGB 9.4 gm/dL (13.0-17.5); MCH 33.1 pg (25.0-35.0); MCHC 33.9 g/dL (31.0-37.0); MCV 97.6 fL (80.0-100.0); Macrocytosis Slight; Mean Platelet Volume 10.3; RBC 2.85 m/uL (4.30-5.90); RDW 16.4 % (11.5-15.5); WBC 4.3 k/uL (3.8-10.6)
[2020-03-03 11:19] LABS: Platelet Count 67 k/uL (150-450)
[2020-03-03 11:42] LABS: Glucose,Whole Blood 118 mg/dL (75-99)
--- NOTE | 2020-03-03 13:12 | P.DS ---
Providers Date of admission: 02/29/20 15:25 Expected date of discharge: 03/03/20 Attending physician: Bal Jones MD Consults: 02/29/20 15:59 Consult Physician Urgent Consulting Provider: Mike Rai Consult Reason/Comments: hip fracture Do you want consulting provider notified?: Already Contacted Primary care physician: [facility] Course: 79-year-old male with PMH of diabetes mellitus, COPD, CAD, GERD presents to the ED from [facility] for hip pain. Apparently, he had a fall 3 days ago. X-ray was done which showed acute displaced right femoral neck fracture. Patient is admitted for further management and orthopedic surgery evaluation. In the ED, his vital signs were stable. CBC showed hemoglobin of 11.6 and platelet count of 89. INR was 1.2. CMP showed potassium of 3.2, chloride 108, BUN 29, glucose 116, total bilirubin 3.1, alkaline phosphatase 193. Chest x-ray shows basilar subsegmental atelectasis. His potassium was replaced via protocol. His BUN and total bilirubin improved with IV hydration. Orthopedic surgery evaluated the patient and recommended no surgical intervention. PT and OT was consulted and followed the patient during his hospitalization. His hemoglobin dropped from 11.6-9.4. There was no signs of active bleeding. Patient was seen and examined. No acute events overnight. Patient is more verbal. Eating comfortably. He denies any chest pain, shortness breath or palpitations. No nausea or vomiting. No fever or chills. General: [non toxic], [no distress], [appears at stated age] Derm: [warm], [dry] Head: [atraumatic], [normocephalic], [symmetric] Eyes: [EOMI], [no lid lag], [anicteric sclera] Mouth: [no lip lesion], [mucus membranes moist] Cardiovascular: [S1S2 reg], [no murmur], [positive DP pulse bilateral], Lungs: [Decreased breath sounds bilateral], [no rhonchi, no rales] , [no accessory muscle use] Abdominal: [soft], [ nontender to palpation], [no guarding], [no appreciable organomegaly] Ext: [no gross muscle atrophy], [no edema], [no contractures], restricted range of motion in the right hip due to pain Neuro: [Unable to determine] Psych: [Alert and oriented 1-2 no focal neurologic deficits] Right femoral neck fracture Acute blood loss anemia Elevated total bilirubin Diabetes mellitus Thrombocytopenia Chronic conditions: CAD, COPD, GERD, dyslipidemia As seen on hip x-ray. Plans: Fall precautions. Weightbearing as tolerated. Follow PT and OT recommendations. Pain management with [place] and morphine as needed. Social work for placement. Hemoglobin 9.8-9.4. Likely from hip fracture. Plans: Conservative management. Repeat CBC tomorrow morning. Transfuse if hemoglobin less than 7. Total bilirubin 3.1-2.4-2.3. Likely related to dehydration. Plans: Encourage hydration. Repeat CMP tomorrow morning. Plans: Insulin sliding scale. Regular Accu-Cheks. Hypoglycemic precautions. Platelet count 89-85-67. Plans: Continue to monitor. No signs of active bleeding. Avoid heparin for now. Repeat CBC tomorrow morning. [Patient admitted for right femoral neck fracture. Orthopedic surgery recommended conservative management. Plans on DC today to rehab. Repeat CBC in 3 days. This complex discharge took about 35 minutes to complete.] Pertinent Studies: Pelvic x-ray, chest x-ray Patient Condition at Discharge: Stable Plan - Discharge Summary Discharge Rx Participant: No New Discharge Prescriptions: New Gabapentin [Neurontin] 400 mg PO TID@0800,1400,2200 #9 cap Continue Nitroglycerin Sl Tabs [Nitrostat] 0.4 mg SUBLINGUAL Q5M PRN PRN Reason: Chest Pain Melatonin 5 mg PO HS PRN PRN Reason: Insomnia Gabapentin [Neurontin] 400 mg PO TID@0800,1400,2200 Acetaminophen Tab [Tylenol] 500 mg PO Q6HR PRN PRN Reason: Pain metFORMIN HCL [Glucophage] 500 mg PO BID@0900,1700 Lactulose 20 gm PO BID@0900,2100 Venlafaxine HCl [Effexor XR] 150 mg PO DAILY@0900 Tamsulosin [Flomax] 0.4 mg PO DAILY Spironolactone 25 mg PO DAILY@0900 Prostat 30 ml PO DAILY Multivitamins, Thera [Multivitamin (formulary)] 1 tab PO DAILY@0900 Furosemide [Lasix] 80 mg PO DAILY Discharge Medication List Acetaminophen Tab [Tylenol] 500 mg PO Q6HR PRN 02/29/20 [History] Furosemide [Lasix] 80 mg PO DAILY 02/29/20 [History] Gabapentin [Neurontin] 400 mg PO TID@0800,1400,2200 02/29/20 [History] Lactulose 20 gm PO BID@0900,2100 02/29/20 [History] Melatonin 5 mg PO HS PRN 02/29/20 [History] Multivitamins, Thera [Multivitamin (formulary)] 1 tab PO DAILY@0900 02/29/20 [History] Nitroglycerin Sl Tabs [Nitrostat] 0.4 mg SUBLINGUAL Q5M PRN 02/29/20 [History] Prostat 30 ml PO DAILY 02/29/20 [History] Spironolactone 25 mg PO DAILY@0902/29/20 [History] Tamsulosin [Flomax] 0.4 mg PO DAILY 02/29/20 [History] Venlafaxine HCl [Effexor XR] 150 mg PO DAILY@0900 02/29/20 [History] metFORMIN HCL [Glucophage] 500 mg PO BID@0900,1700 02/29/20 [History] Gabapentin [Neurontin] 400 mg PO TID@0800,1400,2200 #9 cap 03/03/20 [Rx] Follow up Appointment(s)/Referral(s): Jacqui Zheng, [NON-STAFF] - As Needed Bunny Adhikari DO [Primary Care Provider] - 1-2 days (After ECF) Ambulatory/Diagnostic Orders: Complete Blood Count w/diff [LAB.AMB] Time Frame: 3 Days, Location: None Selected Activity/Diet/Wound Care/Special Instructions: Diet: Heart healthy follow-up PCP within 2 days of discharge. Follow-up with orthopedic surgery within 1 week of discharge. Repeat CBC within 3 days. Wound care to left heel-apply collagen, saline moist gauze, foam. change MWF and utilize heel protectors. Discharge Disposition: TRANSFER TO SNF/ECF
--- NOTE | 2020-03-05 15:06 | CDI ---
Documentation Clarification Form Date: 03/05/20 From: Lali Donato Phone: If you have a question about this query, please contact Rosio Ortiz Electrician Substation Supervisor at [phone] between 8am and 5pm. Admit Date: 02/29/20 Discharge Date:03/03/20 Patient Name: Ritchie Rosales Visit Number: [id number] ATTENTION: The Clinical Documentation Specialists (CDI) and [facility] Coding Staff appreciate your assistance in clarifying documentation. Please respond to the clarification below the line at the bottom and electronically sign. The CDI & [facility] Coding staff will review the response and follow-up if needed. Please note: Queries are made part of the Legal Health Record. If you have any questions, please contact the author of this message via ITS. Dear Dr. Jones Altered Mental Status was documented in the ED note. Unable to obtain review of systems due to current mental status is documented in both consult notes. History/Risk Factors: COPD, CAD, DM, acute blood loss anemia, dehydration Clinical Indicators: Not oriented to time or place Labs: Hgb - 11.6, 10.2, 9.8, 9.4; Platelet - 89, 85, 73, 67; Potassium 3.2, chloride 108, BUN 29, glucose 116, total bili 3.1, alk phos 193, albumin 3.1 Treatment: IV Pain meds, IV NS at 50 mls/hr In your professional opinion, please clarify the etiology of the Altered Mental Status, if known. Delirium (specify cause): Dementia (if know, specify Type and if with/without Behavioral Disturbance) Encephalopathy (specify Type and Underlying Medical Illness) Other condition (please specify) Unable to determine Patient has underlying dementia. I did not document AMS in my H&P. MTDD
--- NOTE | 2020-03-05 15:11 | CDI ---
Documentation Clarification Form Date: 03/05/20 From: Lali Donato Phone: If you have a question about this query, please contact Rosio Ortiz, Laboratory Chemist at [phone] between 8am and 5pm. Admit Date: 02/29/20 Discharge Date:03/03/20 Patient Name: Ritchie Rosales Visit Number: [id number] ATTENTION: The Clinical Documentation Specialists (CDI) and [facility] Coding Staff appreciate your assistance in clarifying documentation. Please respond to the clarification below the line at the bottom and electronically sign. The CDI & [facility] Coding staff will review the response and follow-up if needed. Please note: Queries are made part of the Legal Health Record. If you have any questions, please contact the author of this message via ITS. Dear Dr. Jones Patient has been diagnosed with a fracture in the right femoral neck. Hip x-ray shows diffuse osteopenia History/Risk Factors: History of fall, CAD, COPD, DM. Clinical Indications: Pain in the right hip after a fall X-Ray Results: Acute displaced right femoral neck fracture. Diffuse osteopenia Treatment: IV pain meds, not a candidate for surgery In your professional opinion, please specify the following: Etiology of fracture: Traumatic Pathological (specify cause): Osteopenia Osteoporosis Other (please specify): Unable to determine Type of Fracture: Displaced Comminuted Greenstick Non-displaced Oblique Spiral Transverse Other (please specify): Episode of care: Initial Subsequent with delayed healing Subsequent with malunion Subsequent with nonunion Sequela traumatic, displaced and initial MTDD
== END 2020-03-03 15:31 | DRG 536 ==
LOC: EC 13:22 → 4SSUR 15:25
PROVIDERS: ADMIT Family Medicine; ATTEND Family Medicine
DX: S72.001A Fracture of unspecified part of neck of right femur, initial encounter for closed fracture (principal); D62 Acute posthemorrhagic anemia; J98.11 Atelectasis; D69.6 Thrombocytopenia, unspecified; L89.622 Pressure ulcer of left heel, stage 2; F03.90 Unspecified dementia, unspecified severity, without behavioral disturbance, psychotic disturbance, mood disturbance, and anxiety; E11.9 Type 2 diabetes mellitus without complications; J44.9 Chronic obstructive pulmonary disease, unspecified; E78.5 Hyperlipidemia, unspecified; E86.0 Dehydration; E87.6 Hypokalemia; I25.10 Atherosclerotic heart disease of native coronary artery without angina pectoris; K21.9 Gastro-esophageal reflux disease without esophagitis; Z79.84 Long term (current) use of oral hypoglycemic drugs; Z79.899 Other long term (current) drug therapy; Z96.652 Presence of left artificial knee joint; Z88.8 Allergy status to other drugs, medicaments and biological substances; Z91.81 History of falling; W19.XXXA Unspecified fall, initial encounter
CPT/HCPCS: 36415; 71046; 73502; 80053; 82140; 85025; 85027; 85610; 85730; 93005; 96361; 96374; 99285

== ENCOUNTER 2020-03-13 01:52 | Inpatient (IN) | payer MEDICARE ==
[2020-03-13] MEDS ORDERED: SODIUM CHLORIDE 0.9% 1,000 ML IV SCH (02:00)
--- NOTE | 2020-03-13 02:03 | ED ---
General Adult HPI - General Chief complaint: Altered Mental Status Stated complaint: lethargic,hypotension Time Seen by Provider: 03/13/20 01:56 Source: EMS Mode of arrival: EMS Limitations: altered mental status, physical limitation - History of Present Illness Initial comments: Ritchie is an 79-year-old gentleman with a history of dementia and chronic right hip fracture who is brought to the ER today by EMS for evaluation of altered mental status and hypotension. Fire department reports that they were contacted due to the patient being more altered than usual, per caregivers at [facility] the patient is usually alert and oriented to person and place however today he became nonverbal didn't seem like himself. Patient is unable to provide any further history. Contacted the patient's son Clovis confirms that his father typically has advanced dementia but he was notified that he seemed more confused than usual. He does confirm his father is full code. - Related Data Home Medications Medication Instructions Recorded Confirmed Acetaminophen Tab [Tylenol] 500 mg PO Q6HR PRN 02/29/20 02/29/20 Furosemide [Lasix] 80 mg PO DAILY 02/29/20 02/29/20 Gabapentin [Neurontin] 400 mg PO TID@0800,1400,2200 02/29/20 02/29/20 Lactulose 20 gm PO BID@0900,2100 02/29/20 02/29/20 Melatonin 5 mg PO HS PRN 02/29/20 02/29/20 Multivitamins, Thera [Multivitamin 1 tab PO DAILY@89902/29/20 02/29/20 (formulary)] Nitroglycerin Sl Tabs [Nitrostat] 0.4 mg SUBLINGUAL Q5M PRN 02/29/20 02/29/20 Prostat 30 ml PO DAILY 02/29/20 02/29/20 Spironolactone 25 mg PO DAILY@89902/29/20 02/29/20 Tamsulosin [Flomax] 0.4 mg PO DAILY 02/29/20 02/29/20 Venlafaxine HCl [Effexor XR] 150 mg PO DAILY@89902/29/20 02/29/20 metFORMIN HCL [Glucophage] 500 mg PO BID@0900,1700 02/29/20 02/29/20 Previous Rx's Medication Instructions Recorded Ferrous Sulfate [Iron] 325 mg PO AC-BRKFST #30 tablet 03/03/20 Gabapentin [Neurontin] 400 mg PO TID@0800,1400,2200 #9 cap 03/03/20 Allergies Allergy/AdvReac Type Severity Reaction Status Date / Time Quptmwa-Rro-Koy Reductase Allergy Unknown Verified 02/29/20 15:15 Inhibitor Review of Systems ROS Statement: Those systems with pertinent positive or pertinent negative responses have been documented in the HPI. ROS Other: All systems not noted in ROS Statement are negative. Past Medical History Past Medical History: Coronary Artery Disease (CAD), COPD, Diabetes Mellitus, GERD/Reflux, Hyperlipidemia, Liver Disease, Renal Disease Additional Past Medical History / Comment(s): pancreatitis History of Any Multi-Drug Resistant Organisms: None Reported Past Surgical History: Orthopedic Surgery Additional Past Surgical History / Comment(s): Left knee arthroplasty Past Psychological History: No Psychological Hx Reported Smoking Status: Never smoker Past Alcohol Use History: None Reported Past Drug Use History: None Reported General Exam - General Exam Comments Initial Comments: Physical Exam GENERAL: Chronically ill appearing, bed bound Profoundly dehydrated HENT: Normocephalic, Atraumatic. Dry mucous membranes with cracking of the tongue noted EYES: PERRL, EOMI PULMONARY: Unlabored respirations. No audible rales rhonchi or wheezing was noted. CARDIOVASCULAR: There is a regular rate and rhythm without any murmurs gallops or rubs. ABDOMEN: Soft and nontender with normal bowel sounds. SKIN: Dry with tenting Chronic wounds on calcareous : Normal external genitalia NEUROLOGIC: A&Ox0 withdraws from pain MUSCULOSKELETAL: Generalized atrophy PSYCHIATRIC: Unable to assess Limitations: altered mental status, physical limitation Course Vital Signs 03/13/20 03/13/20 03/13/20 01:55 02:09 02:10 Temperature 94.5 F L Pulse Rate 89 84 87 Respiratory 14 19 17 Rate Blood Pressure 74/52 74/52 74/52 O2 Sat by Pulse 98 Oximetry 03/13/20 03/13/20 03/13/20 02:20 02:30 02:40 Temperature 95.9 F L Pulse Rate 86 84 84 Respiratory 14 17 19 Rate Blood Pressure 93/62 111/69 103/64 O2 Sat by Pulse 99 99 Oximetry 03/13/20 03/13/20 03/13/20 02:50 03:00 03:10 Temperature Pulse Rate 81 80 82 Respiratory 18 19 19 Rate Blood Pressure 103/66 102/65 98/65 O2 Sat by Pulse 99 100 100 Oximetry 03/13/20 03/13/20 03/13/20 03:20 03:30 03:40 Temperature Pulse Rate 83 82 93 Respiratory 20 20 3 L Rate Blood Pressure 93/62 90/60 90/58 O2 Sat by Pulse 100 100 100 Oximetry 03/13/20 03/13/20 03:50 04:00 Temperature 96.4 F L Pulse Rate 84 83 Respiratory 6 L 10 L Rate Blood Pressure 87/59 85/58 O2 Sat by Pulse 100 100 Oximetry EKG Findings - EKG Comments: EKG Findings:: EKG obtained as part of a septic workup, EKG obtained at 160 9 AM, rate is 90 rhythm is sinus, normal axis, normal intervals, CT 156, QRS 88, QTC mildly prolonged at 518, there is ST depressions laterally no acute ST elevations no evidence of acute infarction. Medical Decision Making - Medical Decision Making Patient was seen and evaluated immediately upon arrival to the emergency department This is a profoundly dehydrated hypotensive afebrile gentleman A full septic workup was initiated as well as obtaining TSH and ammonia given the patient's hypothermia and altered mental status Labs resulted with multiple significant critical abnormalities most concerning for acute hypernatremia, acute kidney failure which appears to be prerenal given the elevated BUN Patient care was discussed with nephrology enthone solder stripper Dr. Servin who recommends a total of 2 L normal saline bolus followed by half normal at 130/h Patient care was discussed with reed cleaner Dr. Nichols who accepts the patient to ICU 's recently admitted to the [facility] who accepts the readmission, Dr. Daniel at bedside to evaluate patient - Lab Data Result diagrams: 03/13/20 02:23 03/13/20 02:23 Lab Results 03/13/20 03/13/20 03/13/20 Range/Units 02:23 02:23 02:23 WBC 18.3 H (3.8-10.6) k/uL RBC 4.78 (4.30-5.90) m/uL Hgb 15.1 D (13.0-17.5) gm/dL Hct 49.1 (39.0-53.0) % MCV 102.8 H D (80.0-100.0) fL MCH 31.5 (25.0-35.0) pg MCHC 30.7 L (31.0-37.0) g/dL RDW 17.0 H (11.5-15.5) % Plt Count 175 D (150-450) k/uL Neutrophils % 81 % Lymphocytes % 13 % Monocytes % 6 % Eosinophils % 0 % Basophils % 0 % Neutrophils # 14.8 H (1.3-7.7) k/uL Lymphocytes # 2.3 (1.0-4.8) k/uL Monocytes # 1.0 (0-1.0) k/uL Eosinophils # 0.0 (0-0.7) k/uL Basophils # 0.0 (0-0.2) k/uL Hypochromasia Slight Anisocytosis Slight Macrocytosis Moderate PT 19.3 H (9.0-12.0) sec INR 2.0 H (<1.2) APTT 27.3 (22.0-30.0) sec Sodium (137-145) mmol/L Potassium (3.5-5.1) mmol/L Chloride (98-107) mmol/L Carbon Dioxide (22-30) mmol/L Anion Gap mmol/L BUN (9-20) mg/dL Creatinine (0.66-1.25) mg/dL Est GFR (CKD-EPI)AfAm (>60 ml/min/1.73 sqM) Est GFR (CKD-EPI)NonAf (>60 ml/min/1.73 sqM) Glucose (74-99) mg/dL Plasma Lactic Acid Adithya (0.7-2.0) mmol/L Calcium (8.4-10.2) mg/dL Total Bilirubin (0.2-1.3) mg/dL AST (17-59) U/L ALT (4-49) U/L Alkaline Phosphatase (38-126) U/L Ammonia (<30) umol/L Total Protein (6.3-8.2) g/dL Albumin (3.5-5.0) g/dL TSH (0.465-4.680) mIU/L Urine Color Dark Yellow Urine Appearance Clear (Clear) Urine pH 5.0 (5.0-8.0) Ur Specific Godley 1.019 (1.001-1.035) Urine Protein Negative (Negative) Urine Glucose (UA) Negative (Negative) Urine Ketones Negative (Negative) Urine Blood Negative (Negative) Urine Nitrite Negative (Negative) Urine Bilirubin Negative (Negative) Urine Urobilinogen 3.0 (<2.0) mg/dL Ur Leukocyte Esterase Moderate H (Negative) Urine RBC 1 (0-5) /hpf Urine WBC 4 (0-5) /hpf Ur Squamous Epith Cells <1 (0-4) /hpf 03/13/20 03/13/20 Range/Units 02:23 02:23 WBC (3.8-10.6) k/uL RBC (4.30-5.90) m/uL Hgb (13.0-17.5) gm/dL Hct (39.0-53.0) % MCV (80.0-100.0) fL MCH (25.0-35.0) pg MCHC (31.0-37.0) g/dL RDW (11.5-15.5) % Plt Count (150-450) k/uL Neutrophils % % Lymphocytes % % Monocytes % % Eosinophils % % Basophils % % Neutrophils # (1.3-7.7) k/uL Lymphocytes # (1.0-4.8) k/uL Monocytes # (0-1.0) k/uL Eosinophils # (0-0.7) k/uL Basophils # (0-0.2) k/uL Hypochromasia Anisocytosis Macrocytosis PT (9.0-12.0) sec INR (<1.2) APTT (22.0-30.0) sec Sodium 168 H* (137-145) mmol/L Potassium 3.9 (3.5-5.1) mmol/L Chloride 126 H (98-107) mmol/L Carbon Dioxide 20 L (22-30) mmol/L Anion Gap 22 mmol/L BUN 167 H* (9-20) mg/dL Creatinine 6.01 H (0.66-1.25) mg/dL Est GFR (CKD-EPI)AfAm 9 (>60 ml/min/1.73 sqM) Est GFR (CKD-EPI)NonAf 8 (>60 ml/min/1.73 sqM) Glucose 148 H (74-99) mg/dL Plasma Lactic Acid Adithya 7.2 H* (0.7-2.0) mmol/L Calcium 9.9 (8.4-10.2) mg/dL Total Bilirubin 7.2 H (0.2-1.3) mg/dL AST 44 (17-59) U/L ALT 29 (4-49) U/L Alkaline Phosphatase 198 H (38-126) U/L Ammonia 86 H (<30) umol/L Total Protein 7.3 (6.3-8.2) g/dL Albumin 3.5 (3.5-5.0) g/dL TSH 1.330 (0.465-4.680) mIU/L Urine Color Urine Appearance (Clear) Urine pH (5.0-8.0) Ur Specific Godley (1.001-1.035) Urine Protein (Negative) Urine Glucose (UA) (Negative) Urine Ketones (Negative) Urine Blood (Negative) Urine Nitrite (Negative) Urine Bilirubin (Negative) Urine Urobilinogen (<2.0) mg/dL Ur Leukocyte Esterase (Negative) Urine RBC (0-5) /hpf Urine WBC (0-5) /hpf Ur Squamous Epith Cells (0-4) /hpf Critical Care Time Critical Care Time: Yes Total Critical Care Time: 45 Critical Care Time: Critical Care Time 45 min Critical care time was exclusive of separately billable procedures and treating other patients and teaching time. Critical care was necessary to treat or prevent imminent or life-threatening deterioration. Given the critical condition in which the patient arrived, the patient was immediately assessed by myself and the nurse, and cardiac monitoring initiated due to the potential for rapid decompensation of the patient's clinical condition. During the course of the patients stay, I spent a considerable amount of time at the bedside performing serial re-evaluations of the patient's hemodynamic and clinical status because of the recognized potential threat to life or limb in this condition. I then had a chance to review not only all of the available current laboratory and radiographic studies obtained today, but I also reviewed old records available to me at the time. Additionally, any ancillary information available including paving plant operator records were reviewed. Se quential vital signs were obtained. Disposition Clinical Impression: Altered mental status, Kidney failure, Dehydration, Hypernatremia, Lactic acidosis, Pressure ulcer of left heel, stage 2 Disposition: ADMITTED IP TO THIS [facility] Condition: Critical
[2020-03-13] MEDS: SODIUM CHLORIDE 0.9% 500 ML 500 ML IV SCH ×4 (02:30→03:54)
--- NOTE | 2020-03-13 02:33 | XR ---
EXAMINATION TYPE: XR chest 1V DATE OF EXAM: 03/13/2020 COMPARISON: 02/29/2020 HISTORY: Sepsis TECHNIQUE: FINDINGS: Heart is normal. Lungs are clear. Diaphragm is normal. There are no hilar masses. There are chest leads. Bony thorax appears intact. IMPRESSION: No active cardiopulmonary disease. There is improved inspiration compared to old exam.
[2020-03-13 03:04] LABS: Appearance,Urine Clear (Clear); Bilirubin,Urine Negative (Negative); Blood,Urine Negative (Negative); Color,Urine Dark Yellow; Glucose,Urine (UA) Negative (Negative); Ketones,Urine Negative (Negative); Leukocyte Esterase,Urine Moderate (Negative); Nitrite,Urine Negative (Negative); Protein,Urine Negative (Negative); RBC,Urine 1 /hpf (0-5); Specific Gravity,Urine 1.019 (1.001-1.035); Squamous Epithelial Cell,Urine <1 /hpf (0-4); WBC,Urine 4 /hpf (0-5)
[2020-03-13 03:14] LABS: Albumin 3.5 g/dL (3.5-5.0); Calcium 9.9 mg/dL (8.4-10.2); Potassium 3.9 mmol/L (3.5-5.1); Total Bilirubin 7.2 mg/dL (0.2-1.3); Total Protein 7.3 g/dL (6.3-8.2)
[2020-03-13 03:16] LABS: Anisocytosis Slight; Basophils % (A) 0 %; Eosinophils % (A) 0 %; HCT 49.1 % (39.0-53.0); HGB 15.1 gm/dL (13.0-17.5); Hypochromasia Slight; Lymphocytes # (A) 2.3 k/uL (1.0-4.8); Lymphocytes % (A) 13 %; MCH 31.5 pg (25.0-35.0); MCHC 30.7 g/dL (31.0-37.0); Macrocytosis Moderate; Mean Platelet Volume 9.4; Monocytes % (A) 6 %; Neutrophils # (A) 14.8 k/uL (1.3-7.7); Neutrophils % (A) 81 %; RBC 4.78 m/uL (4.30-5.90); WBC 18.3 k/uL (3.8-10.6)
[2020-03-13 03:17] LABS: Partial Thromboplastin Time 27.3 sec (22.0-30.0); Prothrombin Time 19.3 sec (9.0-12.0)
[2020-03-13 03:18] LABS: MCV 102.8 fL (80.0-100.0); Platelet Count 175 k/uL (150-450)
[2020-03-13 03:40] LABS: Lactic Acid, Venous 7.2 mmol/L (0.7-2.0)
[2020-03-13] MEDS ORDERED: SODIUM CHLORIDE 0.9% 2,000 ML IV ONE (03:43)
[2020-03-13] MEDS ORDERED: NALOXONE 0.4 MG/ML 1 ML VIAL IV PRN (03:59)
[2020-03-13] MEDS ORDERED: ONDANSETRON 4 MG/2 ML VIAL IVP PRN (03:59)
[2020-03-13] MEDS ORDERED: SODIUM CHLORIDE 0.45% 1,000 ML IV SCH ×2 (04:00→17:00)
[2020-03-13 04:13] LABS: Glucose,Whole Blood 132 mg/dL (75-99)
--- NOTE | 2020-03-13 04:26 | P.HPIM ---
History of Present Illness H&P Date: 03/13/20 Chief Complaint: changes in mental status 79 year old male , non verbal, with DM, COPD, CAD, GERD patient comes in from [facility], he was discharged from our facility about 10 days ago for a right hip fracture , thought to be of chronic component, managed conservatively, . patient is currently unable to provide any meaningful history , per the ED doc, he was sent in here for changes in his mental status, his son wanted him to be a full code. no report of fever, or coughing. no report of GI bleeding in the ED, he was found to be extremely dehydrated with severe hypernatremia, elevated WBC, elevated ammonia level. CXR no acute pathology patient was also found to be hypotensive during the interview, he seems to be moving his head and upper body without moving his arms, and at times tracks with his eye to the voice source. Review of Systems ROS unobtainable: due to mental status Past Medical History Past Medical History: Coronary Artery Disease (CAD), COPD, Diabetes Mellitus, GERD/Reflux, Hyperlipidemia, Liver Disease, Renal Disease Additional Past Medical History / Comment(s): pancreatitis History of Any Multi-Drug Resistant Organisms: None Reported Past Surgical History: Orthopedic Surgery Additional Past Surgical History / Comment(s): Left knee arthroplasty Past Psychological History: No Psychological Hx Reported Smoking Status: Never smoker Past Alcohol Use History: None Reported Past Drug Use History: None Reported - Past Family History family Family Medical History: Unable to Obtain Medications and Allergies Home Medications Medication Instructions Recorded Confirmed Type Acetaminophen Tab [Tylenol] 500 mg PO Q6HR PRN 02/29/20 02/29/20 History Furosemide [Lasix] 80 mg PO DAILY 02/29/20 02/29/20 History Gabapentin [Neurontin] 400 mg PO TID@0800,1400,2200 02/29/20 02/29/20 History Lactulose 20 gm PO BID@0900,2100 02/29/20 02/29/20 History Melatonin 5 mg PO HS PRN 02/29/20 02/29/20 History Multivitamins, Thera [Multivitamin 1 tab PO DAILY@0900 02/29/20 02/29/20 History (formulary)] Nitroglycerin Sl Tabs [Nitrostat] 0.4 mg SUBLINGUAL Q5M PRN 02/29/20 02/29/20 History Prostat 30 ml PO DAILY 02/29/20 02/29/20 History Spironolactone 25 mg PO DAILY@0900 02/29/20 02/29/20 History Tamsulosin [Flomax] 0.4 mg PO DAILY 02/29/20 02/29/20 History Venlafaxine HCl [Effexor XR] 150 mg PO DAILY@0900 02/29/20 02/29/20 History metFORMIN HCL [Glucophage] 500 mg PO BID@0900,1700 02/29/20 02/29/20 History Ferrous Sulfate [Iron] 325 mg PO AC-BRKFST #30 tablet 03/03/20 Rx Gabapentin [Neurontin] 400 mg PO TID@0800,1400,2200 #9 cap 03/03/20 Rx Allergies Allergy/AdvReac Type Severity Reaction Status Date / Time Esnknrt-Wzk-Cbm Reductase Allergy Unknown Verified 02/29/20 15:15 Inhibitor Physical Exam Vitals: Vital Signs Temp Pulse Resp BP Pulse Ox 03/13/20 04:00 96.4 F L 83 10 L 85/58 100 03/13/20 03:50 84 6 L 87/59 100 03/13/20 03:40 93 3 L 90/58 100 03/13/20 03:30 82 20 90/60 100 03/13/20 03:20 83 20 93/62 100 03/13/20 03:10 82 19 98/65 100 03/13/20 03:00 80 19 102/65 100 03/13/20 02:50 81 18 103/66 99 03/13/20 02:40 84 19 103/64 99 03/13/20 02:30 84 17 111/69 99 03/13/20 02:20 95.9 F L 86 14 93/62 03/13/20 02:10 87 17 74/52 03/13/20 02:09 84 19 74/52 03/13/20 01:55 94.5 F L 89 14 74/52 98 Intake and Output 03/12/20 03/12/20 03/13/20 14:59 22:59 06:59 Output Total 4 Balance -4 Output: Urine 4 Uretheral (Carey) 4 Other: Weight 88.451 kg Constitutional: No acute distress, nonverbal, seems to be restless movi ng his head and upper body, does not follow commands but seems to be tracking briefly with his eyes Eyes: Anicteric sclerae, moist conjunctiva, left pupil round reactive to light ENMT: NC/AT Oropharynx clear, oral breathing seems to have dehydrated mouth no erythema or exudates Neck: Supple, , no masses, or JVD No carotid bruits No thyromegaly Lungs: Clear to auscultation Clear to percussion Normal respiratory effort, no accessory muscle use Cardiovascular: Heart regular in rate and rhythm, No murmurs, gallops, or rubs No peripheral edema Abdominal: Soft Nontender, no guarding, rebound or rigidity Abdomen moving with respiration Normoactive bowel sounds No hepatomegaly, No splenomegaly No palpable mass No abdominal wall hernia noted Skin: Call to the touch upon presentation patient currently actively being warmed with bear hugger's No reported pressure ulcers over the coccyx or buttocks, one wound does not seem to be infected over the right calcaneum Extremities: No digital cyanosis , capillary refill is immediate bilateral toes No clubbing Pedal pulses intact and symmetrical Radial pulses intact and symmetrical No calf tenderness Off pressure bruits bilateral feet Psychiatric: Patient doesn't follow commands he is moving his head and twitching his upper body but no purposeful movements of his upper or lower extremities patient doesn't follow commands he has his eyes open and tracks to t he source of voice at times Neuro could not do proper neuro evaluation at this time due to patient mental status Lymphatics: no palpable cervical or supraclavicular , or inguinal lymph nodes Results CBC & Chem 7: 03/13/20 02:23 03/13/20 02:23 Labs: Abnormal Lab Results - Last 24 Hours (Table) 03/13/20 03/13/20 03/13/20 Range/Units 02:23 02:23 02:23 WBC 18.3 H (3.8-10.6) k/uL MCV 102.8 H D (80.0-100.0) fL MCHC 30.7 L (31.0-37.0) g/dL RDW 17.0 H (11.5-15.5) % Neutrophils # 14.8 H (1.3-7.7) k/uL PT 19.3 H (9.0-12.0) sec INR 2.0 H (<1.2) Sodium (137-145) mmol/L Chloride (98-107) mmol/L Carbon Dioxide (22-30) mmol/L BUN (9-20) mg/dL Creatinine (0.66-1.25) mg/dL Glucose (74-99) mg/dL POC Glucose (mg/dL) (75-99) mg/dL Plasma Lactic Acid Adithya (0.7-2.0) mmol/L Total Bilirubin (0.2-1.3) mg/dL Alkaline Phosphatase (38-126) U/L Ammonia (<30) umol/L Ur Leukocyte Esterase Moderate H (Negative) 03/13/20 03/13/20 03/13/20 Range/Units 02:23 02:23 04:12 WBC (3.8-10.6) k/uL MCV (80.0-100.0) fL MCHC (31.0-37.0) g/dL RDW (11.5-15.5) % Neutrophils # (1.3-7.7) k/uL PT (9.0-12.0) sec INR (<1.2) Sodium 168 H* (137-145) mmol/L Chloride 126 H (98-107) mmol/L Carbon Dioxide 20 L (22-30) mmol/L BUN 167 H* (9-20) mg/dL Creatinine 6.01 H (0.66-1.25) mg/dL Glucose 148 H (74-99) mg/dL POC Glucose (mg/dL) 132 H (75-99) mg/dL Plasma Lactic Acid Adithya 7.2 H* (0.7-2.0) mmol/L Total Bilirubin 7.2 H (0.2-1.3) mg/dL Alkaline Phosphatase 198 H (38-126) U/L Ammonia 86 H (<30) umol/L Ur Leukocyte Esterase (Negative) Assessment and Plan Assessment: Acute metabolic encephalopathy rule out underlying infectious process Acute hypernatremia secondary to dehydration Acute kidney injury most likely prerenal secondary to dehydration Hyperammonemia Leukocytosis without obvious source of infection at this time, follow-up blood cultures Lactic acidosis Plan Aggressive IV fluid hydration with normal saline Post monitoring of blood pressure Admission to the ICU Nephrology following recommending to follow the 2 L IV normal saline boluses with half-normal saline maintenance fluids Close monitoring of sodium every 4 hours Close monitoring of vital signs Elevated bilirubin acute on chronic Check liver ultrasound Monitor liver enzymes Preformed a thorough record review from recent hospitalization discharged from the hospital about 10 days ago when he was admitted for right hip fracture which was treated conservatively Surrogate decision-maker: Patient's son CODE STATUS: Full code DVT prophylaxis: Heparin subcu 3 times a day Discussed with: Patient, ER Anticipated length of stay more than [address]: jail A total of 65 minutes was spent on the care of this complex patient more than 50% of the time was spent in counseling and care coordination.
[2020-03-13] MEDS ORDERED: IPRATROPIUM-ALBUTEROL 3 ML NEB INHALATION PRN (04:30)
[2020-03-13 06:10] LABS: Glucose,Whole Blood 129 mg/dL (75-99)
[2020-03-13] MEDS: INSULIN ASPART (NovoLOG) 100 UNIT/ML VIAL SQ SCH ×3 (07:03→18:19)
[2020-03-13] MEDS ORDERED: SODIUM CHLORIDE 0.9% 500 ML 500 ML IV ONE (07:04)
[2020-03-13 07:40] LABS: ABG Base Excess -6.4 mmol/L; ABG HCO3 17 mmol/L (21-25); ABG Oxygen Saturation 98.5 % (94-97); ABG PCO2 22 mmHg (35-45); ABG PO2 107 mmHg (83-108); ABG TCO2 18 mmol/L (19-24); Allen Test Performed? Yes
[2020-03-13] MEDS ORDERED: DEXTROSE 5%-0.45% NACL 1,000 ML IV SCH (07:45)
[2020-03-13] MEDS ORDERED: DEXTROSE 5% IN WATER 1,000 ML IV ONE (08:22)
[2020-03-13 08:32] LABS: Calcium 8.5 mg/dL (8.4-10.2); Potassium 4.4 mmol/L (3.5-5.1)
[2020-03-13] MEDS: HEPARIN SODIUM,PORCINE 5,000 UNIT/ML 1 ML VIAL SQ SCH ×2 (08:36→16:47)
[2020-03-13] MEDS: DEXTROSE 5% IN WATER 1,000 ML IV SCH ×2 (08:37→16:23)
[2020-03-13] MEDS ORDERED: LACTULOSE 20 GM/30 ML CUP PO SCH (09:00)
[2020-03-13] MEDS ORDERED: LACTULOSE 200 GM/300 ML (FROM 1/2 GAL JUG) RECTAL SCH (09:00)
--- NOTE | 2020-03-13 09:01 | P.PN ---
Subjective Progress Note Date: 03/13/20 Principal diagnosis: Altered mental status Patient is obtunded. He is not responsive to verbal or painful stimuli. His son is at bedside. No acute events reported by nursing staff. Patient remained oliguric. Vital signs are stable. Objective - Vital Signs Vital signs: Vital Signs Temp 97.2 F L 03/13/20 08:00 Pulse 84 03/13/20 08:00 Resp 21 03/13/20 08:00 BP 111/62 03/13/20 08:00 Pulse Ox 96 03/13/20 08:00 Intake & Output 03/12/20 03/13/20 03/13/20 18:59 06:59 18:59 Intake Total 2130 1410 Output Total 9 15 Balance 2121 1395 Weight 88.451 kg Intake: IV 1280 Dextrose 5% in Water 1, 150 000 ml @ 150 mls/hr IV . Q6H40M [facility] Rx#:[id number] Dextrose 5% in Water 1, 1000 000 ml @ 999 mls/hr IV . Q1H1M [facility] Rx#:[id number] Sodium Chloride 0.45% 1, 130 000 ml @ 130 mls/hr IV . Q7H42M [facility] Rx#:[id number] Intake, IV Titration 2130 130 Amount Sodium Chloride 0.9% 1, 130 130 000 ml @ 130 mls/hr IV . Q7H42M [facility] Rx#:[id number] Sodium Chloride 0.9% 2, 2000 000 ml @ 999 mls/hr IV . Q2H1M [facility] Rx#:[id number] Output: Urine 9 15 Uretheral (Carey) 4 Other: Voiding Method Indwelling Catheter Indwelling Catheter - Exam General: The patient is obtunded. He appears chronically ill. Eye: there is normal conjunctiva bilaterally. Neck: The neck is supple, there is no JVD. Cardiovascular: Normal S1-S2, no S3-S4, no murmurs. Respiratory: Lungs clear to auscultation bilaterally Gastrointestinal: Abdomen is soft, nontender Musculoskeletal: There is +1 pedal edema. Neurological:. Speech is normal. Skin: Skin is warm and dry - Labs CBC & Chem 7: 03/13/20 02:23 03/13/20 02:23 Labs: Abnormal Lab Results - Last 24 Hours (Table) 03/13/20 03/13/20 03/13/20 Range/Units 02:23 02:23 02:23 WBC 18.3 H (3.8-10.6) k/uL MCV 102.8 H D (80.0-100.0) fL MCHC 30.7 L (31.0-37.0) g/dL RDW 17.0 H (11.5-15.5) % Neutrophils # 14.8 H (1.3-7.7) k/uL PT 19.3 H (9.0-12.0) sec INR 2.0 H (<1.2) ABG pH (7.35-7.45) ABG pCO2 (35-45) mmHg ABG HCO3 (21-25) mmol/L ABG Total CO2 (19-24) mmol/L ABG O2 Saturation (94-97) % Sodium (137-145) mmol/L Chloride (98-107) mmol/L Carbon Dioxide (22-30) mmol/L BUN (9-20) mg/dL Creatinine (0.66-1.25) mg/dL Glucose (74-99) mg/dL POC Glucose (mg/dL) (75-99) mg/dL Plasma Lactic Acid Adithya (0.7-2.0) mmol/L Total Bilirubin (0.2-1.3) mg/dL Alkaline Phosphatase (38-126) U/L Ammonia (<30) umol/L Ur Leukocyte Esterase Moderate H (Negative) 03/13/20 03/13/20 03/13/20 Range/Units 02:23 02:23 04:12 WBC (3.8-10.6) k/uL MCV (80.0-100.0) fL MCHC (31.0-37.0) g/dL RDW (11.5-15.5) % Neutrophils # (1.3-7.7) k/uL PT (9.0-12.0) sec INR (<1.2) ABG pH (7.35-7.45) ABG pCO2 (35-45) mmHg ABG HCO3 (21-25) mmol/L ABG Total CO2 (19-24) mmol/L ABG O2 Saturation (94-97) % Sodium 168 H* (137-145) mmol/L Chloride 126 H (98-107) mmol/L Carbon Dioxide 20 L (22-30) mmol/L BUN 167 H* (9-20) mg/dL Creatinine 6.01 H (0.66-1.25) mg/dL Glucose 148 H (74-99) mg/dL POC Glucose (mg/dL) 132 H (75-99) mg/dL Plasma Lactic Acid Adithya 7.2 H* (0.7-2.0) mmol/L Total Bilirubin 7.2 H (0.2-1.3) mg/dL Alkaline Phosphatase 198 H (38-126) U/L Ammonia 86 H (<30) umol/L Ur Leukocyte Esterase (Negative) 03/13/20 03/13/20 03/13/20 Range/Units 05:55 06:09 07:19 WBC (3.8-10.6) k/uL MCV (80.0-100.0) fL MCHC (31.0-37.0) g/dL RDW (11.5-15.5) % Neutrophils # (1.3-7.7) k/uL PT (9.0-12.0) sec INR (<1.2) ABG pH 7.50 H (7.35-7.45) ABG pCO2 22 L (35-45) mmHg ABG HCO3 17 L (21-25) mmol/L ABG Total CO2 18 L (19-24) mmol/L ABG O2 Saturation 98.5 H (94-97) % Sodium (137-145) mmol/L Chloride (98-107) mmol/L Carbon Dioxide (22-30) mmol/L BUN (9-20) mg/dL Creatinine (0.66-1.25) mg/dL Glucose (74-99) mg/dL POC Glucose (mg/dL) 129 H (75-99) mg/dL Plasma Lactic Acid Adithya 4.0 H* (0.7-2.0) mmol/L Total Bilirubin (0.2-1.3) mg/dL Alkaline Phosphatase (38-126) U/L Ammonia (<30) umol/L Ur Leukocyte Esterase (Negative) Assessment and Plan Assessment: This is a 79-year-old male with complex past medical history noted below who presented to the emergency room from a local [facility] with altered mental status and unresponsiveness. Patient was evaluated in the ER and currently admits to the hospital for further management of his medical problems noted below. 1. Severe hypernatremia: Secondary to dehydration. Sodium level on presentation 168. Patient was treated aggressively with IV fluid hydration. Repeat lab work pending. 2. Acute kidney injury, oliguric. Nephrology following. Kidney ultrasound pending. 3. Hepatic encephalopathy with ammonia level of 86. We will continue with rectal lactulose for now given AMS and patient is able to swallow 4. Acute toxo metabolic encephalopathy secondary to above. I would obtain computed tomography scan of the head to rule out any acute intracranial findings 5. Underlying liver disease/cirrhosis, unclear etiology. Patient's son is not sure whether patient has underlying hepatitis. He told me his father was never a heavy drinker. 6. DVT prophylaxis: With subcu heparin 7. CODE STATUS: Patient is full code. Discussed with his son at bedside. Today, I reviewed his medication list and lab work results. Appreciate business process consultant's recommendations. Continue aggressive IV fluid hydration with D5 water at 150 and per hour. Repeat BMP this afternoon.
--- NOTE | 2020-03-13 09:09 | US ---
EXAMINATION TYPE: US liver DATE OF EXAM: 03/13/2020 COMPARISON: NONE CLINICAL HISTORY: elevated liver enzymes. Elevated LFT's EXAM MEASUREMENTS: Liver Length: 10.6 cm Gallbladder Wall: 0.2 cm CBD: 0.3 cm Right Kidney: 10.1 x 5.1 x 4.5 cm ICU pt, very difficult to visualize Pancreas: Body wnl, head and tail obscured by overlying bowel gas Liver: Limited visualization shows no abnormality Gallbladder: Lumen filled with sludge Evidence for sonographic Rai's sign: No CBD: wnl Right Kidney: No hydro, difficult to visualize due to overlying bowel gas IMPRESSION: 1. gallbladder sludge. No evidence for wall thickening or pericholecystic fluid.
--- NOTE | 2020-03-13 09:34 | P.NPCON ---
History of Present Illness - Reason for Consult acute renal failure, hypernatremia - History of Present Illness reason for consultation: Acute kidney injury and electrolyte imbalance History of present illness: Patient is a 79-year-old male seen in renal consultation for acute kidney injury and electro light imbalance. patient's creatinine was 6.01 on admission and is now 5.37. Baseline creatinine from 03/02/2020 was 1.0. patient was brought to the hospital with altered mental status and hypotension. He hasn't been eating and drinking much the last few days. patient appears quite lethargic and not responding to any verbal commands at this time. sodium level was 168 on admission and he did receive 2 L of normal saline bolus and was then changed over to half-normal saline. urine output has been 5-10 mL an hour. he was on metformin, spironolactone as well as Lasix at home which are all currently held. blood pressure was low in the systolic 70s on admission. Most recent blood pressure is 111/62. Son is present at bedside. Patient is presenting from an extended care facility. Vital signs are stable. General: The patient appeared well nourished and normally developed. HEENT: Head exam is unremarkable. Neck is without jugular venous distension. LUNGS: Breath sounds decreased. HEART: Rate and Rhythm are regular. ABDOMEN: soft, nontender. EXTREMITITES: No clubbing, cyanosis, or edema. Past Medical History Past Medical History: Coronary Artery Disease (CAD), COPD, Diabetes Mellitus, GERD/Reflux, Hyperlipidemia, Liver Disease Additional Past Medical History / Comment(s): history of pancreatitis, Right hip fracture, Right femoral neck fracture, Diabetes mellitus, Thrombocytopenia, CAD, COPD, GERD, dyslipidemia History of Any Multi-Drug Resistant Organisms: None Reported Past Surgical History: Orthopedic Surgery Additional Past Surgical History / Comment(s): Left knee arthroplasty, Left hip replacement Past Anesthesia/Blood Transfusion Reactions: No Reported Reaction Past Psychological History: No Psychological Hx Reported Smoking Status: Never smoker Past Alcohol Use History: None Reported Past Drug Use History: None Reported - Past Family History family Family Medical History: Unable to Obtain Medications and Allergies Home Medications Medication Instructions Recorded Confirmed Type Acetaminophen Tab [Tylenol] 500 mg PO Q6HR PRN 02/29/20 03/13/20 History Furosemide [Lasix] 80 mg PO DAILY 02/29/20 03/13/20 History Lactulose 20 gm PO BID@0900,2100 02/29/20 03/13/20 History Melatonin 5 mg PO HS PRN 02/29/20 03/13/20 History Multivitamins, Thera [Multivitamin 1 tab PO DAILY@0900 02/29/20 03/13/20 History (formulary)] Nitroglycerin Sl Tabs [Nitrostat] 0.4 mg SUBLINGUAL Q5M PRN 02/29/20 03/13/20 History Prostat 30 ml PO DAILY 02/29/20 03/13/20 History Spironolactone 25 mg PO DAILY@0900 02/29/20 03/13/20 History Tamsulosin [Flomax] 0.4 mg PO DAILY 02/29/20 03/13/20 History Venlafaxine HCl [Effexor XR] 150 mg PO DAILY@0900 02/29/20 03/13/20 History metFORMIN HCL [Glucophage] 500 mg PO BID@0900,1700 02/29/20 03/13/20 History Gabapentin [Neurontin] 400 mg PO TID@0800,1400,2200 #9 cap 03/03/20 03/13/20 Rx Allergies Allergy/AdvReac Type Severity Reaction Status Date / Time [id number]-[id number] Reductase Allergy Unknown Verified 03/13/20 08:27 Inhibitor Physical Exam Vitals: Vital Signs Temp Pulse Resp BP Pulse Ox 03/13/20 08:00 97.2 F L 84 21 111/62 96 03/13/20 07:00 86 22 88/56 96 03/13/20 06:00 97.1 F L 84 22 93/55 96 03/13/20 05:00 96.8 F L 84 27 H 123/68 96 03/13/20 04:23 82 12 95/63 100 03/13/20 04:00 96.4 F L 83 10 L 85/58 100 03/13/20 03:50 84 6 L 87/59 100 03/13/20 03:40 93 3 L 90/58 100 03/13/20 03:30 82 20 90/60 100 03/13/20 03:20 83 20 93/62 100 03/13/20 03:10 82 19 98/65 100 03/13/20 03:00 80 19 102/65 100 03/13/20 02:50 81 18 103/66 99 10/05/20 02:40 84 19 103/64 99 03/13/20 02:30 84 17 111/69 99 03/13/20 02:20 95.9 F L 86 14 93/62 03/13/20 02:10 87 17 74/52 03/13/20 02:09 84 19 74/52 03/13/20 01:55 94.5 F L 89 14 74/52 98 Intake and Output 03/12/20 03/13/20 03/13/20 22:59 06:59 14:59 Intake Total 2130 1410 Output Total 9 15 Balance 2121 1395 Intake: IV 1280 Dextrose 5% in Water 1, 150 000 ml @ 150 mls/hr IV . Q6H40M [facility] Rx#:[id number] Dextrose 5% in Water 1, 1000 000 ml @ 999 mls/hr IV . Q1H1M [facility] Rx#:[id number] Sodium Chloride 0.45% 1, 130 000 ml @ 130 mls/hr IV . Q7H42M [facility] Rx#:[id number] Intake, IV Titration 2130 130 Amount Sodium Chloride 0.9% 1, 130 130 000 ml @ 130 mls/hr IV . Q7H42M [facility] Rx#:[id number] Sodium Chloride 0.9% 2, 2000 000 ml @ 999 mls/hr IV . Q2H1M [facility] Rx#:[id number] Output: Urine 9 15 Uretheral (Carey) 4 Other: Voiding Method Indwelling Catheter Indwelling Catheter Weight 88.451 kg Results - Lab Results Most recent lab results ABG pH 7.50 (7.35-7.45) H 03/13/20 07:19 ABG pCO2 22 mmHg (35-45) L 03/13/20 07:19 ABG pO2 107 mmHg (83-108) 03/13/20 07:19 ABG HCO3 17 mmol/L (21-25) L 03/13/20 07:19 ABG O2 Saturation 98.5 % (94-97) H 03/13/20 07:19 Calcium 8.5 mg/dL (8.4-10.2) 03/13/20 05:55 03/13/20 02:23 03/13/20 05:55 Assessment and Plan Plan: assessment: 1. acute kidney injury secondary to ATN secondary to severe intravascular volume depletion and hypotension. Creatinine 6.01 on admission and is 5.37 today. Baseline creatinine near 1 from 03/02/2020. UA benign. 2. Severe hypernatremia secondary to lack of oral water intake - water deficit 7.4 L. 3. Metabolic acidosis secondary to acute kidney injury, lactic acidosis and IV fluids. he was also on metformin outpatient. 4. Hypotension secondary to hypovolemia. Better with IV fluids. plan: Agree with D5W at 150 mL an hour. Repeat BMP at 4 PM today. Avoid nephrotoxins. All diuretics held. Continue to monitor renal function and urine output closely. Check renal ultrasound. Thank you for the consultation. I will continue to follow the patient with you during his hospital stay.
--- NOTE | 2020-03-13 10:20 | CT ---
EXAMINATION TYPE: CT brain wo con DATE OF EXAM: 03/13/2020 COMPARISON: None HISTORY: Mental status changes. CT DLP: 1129.[address] of the brain was performed. The ventricles, basal cisterns and sulci overlying the cerebral convexities demonstrate mild enlargem ent. There is no evidence for intracranial hemorrhage or sulcal effacement. There is decreased attenuation about the periventricular white matter and deep white matter of both c erebral hemispheres, compatible with chronic small vessel ischemia. Differential diagnosis does inclu de demyelination. No mass effects are seen.No midline shift. Osseous calvarium is intact. Complete opacification left maxillary sinus with inspissated mucus. If symptoms persist consider MRI. IMPRESSION: 1. Age related atrophic and chronic small vessel ischemic change without acute intracranial process s een at this time.
--- NOTE | 2020-03-13 10:21 | US ---
EXAMINATION TYPE: US kidneys/renal and bladder DATE OF EXAM: 03/13/2020 COMPARISON: US 03/13/2020, CT 11/21/2019 CLINICAL HISTORY: BAILEE. EXAM MEASUREMENTS: Right Kidney: 10.3 x 5.5 x 4.7 cm Left Kidney: 11.6 x 5.2 x 3.9 cm Right Kidney: No hydronephrosis or masses seen. Loss of corticomedullary differentiation Left Kidney: No hydronephrosis or masses seen. Loss of corticomedullary differentiation Bladder: Not imaged due to patient having corebtt catheter and being covered with warming blanket in IC U There is no evidence for hydronephrosis at this point in time. No nephrolithiasis is seen. No kathia s are identified. 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
[2020-03-13 11:52] LABS: Glucose,Whole Blood 262 mg/dL (75-99)
--- NOTE | 2020-03-13 13:56 | P.CNPUL ---
History of Present Illness Consult date: 03/13/20 History of present illness: 79-year-old male patient, multiple comorbidities, history of coronary artery disease, diabetes mellitus, hyperlipidemia and previous history of falls with fractures of the hip was in the hospital approximately 10 days ago and the patient was discharged to a long term. Based on the discharge summary from 03/03/2020, the patient had a fall and x-rays of the hip showed a acute displaced right femoral neck fracture. The patient was admitted for further management and he was seen by orthopedic surgery. The patient did not have surgery. He received pain management. The patient was asked to bear some weight as tolerated. Orthopedic surgery recommended conservative management. The patient back then and appears to have some poor baseline performance and functional status. He was not oriented to time and place at all times. At other times he was found to be more alert. He was not ambulating. He was seen by Dr. Rai and his recommendations was that this appears to be a chronic versus subacute fracture. Note that the patient has already had a previous left hip fracture with intramedullary nailing. It was recommended to proceed with conservative management at that point in time. Note that after the patient was released to [facility] [place] [facility], his condition was progressively getting worse. He was not eating. He came in to the ED yesterday severely dehydrated. Based on available information, the patient was quite lethargic and was not responding to verbal stimulation. His sodium level was 168. He received a total of 2 L of normal saline and he was switched to half-normal saline and his urine output was in the order of 5-10 mL an hour. He was taking metformin, Lasix, Aldactone was also taken lactulose for presumptive liver disease and there is a questionable history of alcoholism. He did not require any pressors. I saw the patient in the ICU this morning. He was still dry despite taking all this fluids. I gave her another bolus of IV fluids and I put him on a D5 water infusion today to 1 50 mL an hour. Note that the patient was in acute kidney injury. His creatinine was up to 6.01. The repeat electrolytes within 4 hours so that the sodium level was down to 167. The patient's creatinine was also down to 5.37. The anion gap was at 19. Serum bicarb was at 13. Glucose level was 129 and later on came up to 262. Lactic acid level was as high as 7.2 and dropped down to 3.6. His INR was at 2 with a PT of 19.3 and a PTT of 27.3. The UA was negative. AST and ALP were within normal limits. Alkaline phosphatase was 198. Ammonia level was 86. The white cell count of 18.3. The CAT scan of the brain is showing age-related atrophy otherwise negative. Review of Systems ROS unobtainable: due to mental status Past Medical History Past Medical History: Coronary Artery Disease (CAD), COPD, Diabetes Mellitus, GERD/Reflux, Hyperlipidemia, Liver Disease Additional Past Medical History / Comment(s): history of pancreatitis, Right hip fracture, Right femoral neck fracture, Diabetes mellitus, Thrombocytopenia, CAD, COPD, GERD, dyslipidemia History of Any Multi-Drug Resistant Organisms: None Reported Past Surgical History: Orthopedic Surgery Additional Past Surgical History / Comment(s): Left knee arthroplasty, Left hip replacement Past Anesthesia/Blood Transfusion Reactions: No Reported Reaction Past Psychological History: No Psychological Hx Reported Smoking Status: Never smoker Past Alcohol Use History: None Reported Past Drug Use History: None Reported - Past Family History family Family Medical History: Unable to Obtain Medications and Allergies Home Medications Medication Instructions Recorded Confirmed Type Acetaminophen Tab [Tylenol] 500 mg PO Q6HR PRN 02/29/20 03/13/20 History Furosemide [Lasix] 80 mg PO DAILY 02/29/20 03/13/20 History Lactulose 20 gm PO BID@0900,2100 02/29/20 03/13/20 History Melatonin 5 mg PO HS PRN 02/29/20 03/13/20 History Multivitamins, Thera [Multivitamin 1 tab PO DAILY@0902/29/20 03/13/20 History (formulary)] Nitroglycerin Sl Tabs [Nitrostat] 0.4 mg SUBLINGUAL Q5M PRN 02/29/20 03/13/20 History Prostat 30 ml PO DAILY 02/29/20 03/13/20 History Spironolactone 25 mg PO DAILY@0902/29/20 03/13/20 History Tamsulosin [Flomax] 0.4 mg PO DAILY 02/29/20 03/13/20 History Venlafaxine HCl [Effexor XR] 150 mg PO DAILY@0900 02/29/20 03/13/20 History metFORMIN HCL [Glucophage] 500 mg PO BID@0900,1700 02/29/20 03/13/20 History Gabapentin [Neurontin] 400 mg PO TID@0800,1400,2200 #9 cap 03/03/20 03/13/20 Rx Allergies Allergy/AdvReac Type Severity Reaction Status Date / Time Uppkbua-Vzk-Ssr Reductase Allergy Unknown Verified 03/13/20 08:27 Inhibitor Physical Exam Vitals: Vital Signs Temp Pulse Resp BP Pulse Ox 03/13/20 07:00 86 22 88/56 96 03/13/20 06:00 97.1 F L 84 22 93/55 96 03/13/20 05:00 96.8 F L 84 27 H 123/68 96 03/13/20 04:23 82 12 95/63 100 03/13/20 04:00 96.4 F L 83 10 L 85/58 100 03/13/20 03:50 84 6 L 87/59 100 03/13/20 03:40 93 3 L 90/58 100 03/13/20 03:30 82 20 90/60 100 03/13/20 03:20 83 20 93/62 100 03/13/20 03:10 82 19 98/65 100 03/13/20 03:00 80 19 102/65 100 03/13/20 02:50 81 18 103/66 99 03/13/20 02:40 84 19 103/64 99 03/13/20 02:30 84 17 111/69 99 03/13/20 02:20 95.9 F L 86 14 93/62 03/13/20 02:10 87 17 74/52 03/13/20 02:09 84 19 74/52 03/13/20 01:55 94.5 F L 89 14 74/52 98 Intake and Output 03/12/20 03/13/20 03/13/20 22:59 06:59 14:59 Intake Total 2130 260 Output Total 9 5 Balance 2121 255 Intake: IV 130 Sodium Chloride 0.45% 1, 130 000 ml @ 130 mls/hr IV . Q7H42M [facility] Rx#:[id number] Intake, IV Titration 2130 130 Amount Sodium Chloride 0.9% 1, 130 130 000 ml @ 130 mls/hr IV . Q7H42M [facility] Rx#:[id number] Sodium Chloride 0.9% 2, 2000 000 ml @ 999 mls/hr IV . Q2H1M [facility] Rx#:[id number] Output: Urine 9 5 Uretheral (Carey) 4 Other: Voiding Method Indwelling Catheter Indwelling Catheter Weight 88.451 kg Gen. appearance the patient is lethargic, somnolent and sleepy, not responding to stimulation. The patient is quite cachectic and emaciated. He is BMI 27.2. He is calm and comfortable. No acute ST or distress. Head exam was generally normal. There was no scleral icterus or corneal arcus. Mucous membranes were extremely dry Neck was supple and without jugular venous distension, thyromegaly, or carotid bruits. Carotids were easily palpable bilaterally. There was no adenopathy. Lungs were clear to auscultation and percussion, and with normal diaphragmatic excursion. No wheezes or rales were noted. Cardiac exam revealed the PMI to be normally situated and sized. The rhythm was regular and no extrasystoles were noted during several minutes of auscultation. The first and second heart sounds were normal and physiologic splitting of the second heart sound was noted. There were no murmurs, rubs, clicks, or gallops. Abdominal exam revealed normal bowel sounds. The abdomen was soft, non-tender, and without masses, organomegaly, or appreciable enlargement of the abdominal aorta. Extremities are dry. There is no edema. No cyanosis. No clubbing. Previous surgical scar over the hip is seen on the left. neurologically, the patient withdraws only to painful stimulation. Pupils are equal and reactive to light. No nystagmus. No clonus. No focal neurological deficits. Results - Laboratory Findings CBC and BMP: 03/13/20 02:23 03/13/20 05:55 ABG ABG pH 7.50 (7.35-7.45) H 03/13/20 07:19 ABG pCO2 22 mmHg (35-45) L 03/13/20 07:19 ABG pO2 107 mmHg (83-108) 03/13/20 07:19 ABG O2 Saturation 98.5 % (94-97) H 03/13/20 07:19 PT/INR, D-dimer PT 19.3 sec (9.0-12.0) H 03/13/20 02:23 INR 2.0 (<1.2) H 03/13/20 02:23 Abnormal lab findings: Abnormal Labs 03/13/20 03/13/20 03/13/20 02:23 02:23 02:23 WBC 18.3 H MCV 102.8 H D MCHC 30.7 L RDW 17.0 H Neutrophils # 14.8 H PT 19.3 H INR 2.0 H ABG pH ABG pCO2 ABG HCO3 ABG Total CO2 ABG O2 Saturation Sodium Chloride Carbon Dioxide BUN Creatinine Glucose POC Glucose (mg/dL) Plasma Lactic Acid Adithya Total Bilirubin Alkaline Phosphatase Ammonia Ur Leukocyte Esterase Moderate H 03/13/20 03/13/20 03/13/20 02:23 02:23 04:12 WBC MCV MCHC RDW Neutrophils # PT INR ABG pH ABG pCO2 ABG HCO3 ABG Total CO2 ABG O2 Saturation Sodium 168 H* Chloride 126 H Carbon Dioxide 20 L BUN 167 H* Creatinine 6.01 H Glucose 148 H POC Glucose (mg/dL) 132 H Plasma Lactic Acid Adithya 7.2 H* Total Bilirubin 7.2 H Alkaline Phosphatase 198 H Ammonia 86 H Ur Leukocyte Esterase 03/13/20 03/13/20 03/13/20 05:55 06:09 07:19 WBC MCV MCHC RDW Neutrophils # PT INR ABG pH 7.50 H ABG pCO2 22 L ABG HCO3 17 L ABG Total CO2 18 L ABG O2 Saturation 98.5 H Sodium Chloride Carbon Dioxide BUN Creatinine Glucose POC Glucose (mg/dL) 129 H Plasma Lactic Acid Adithya 4.0 H* Total Bilirubin Alkaline Phosphatase Ammonia Ur Leukocyte Esterase - Diagnostic Findings Chest x-ray: image reviewed Assessment and Plan Plan: 1 acute kidney injury secondary to severe intravascular volume depletion. Creatinine was at 6.01 at time of admission and is gradually improving is down to 5.37 with fluids. Note that his renal function was normal at baseline. Ultrasound of the kidney was ordered and was negative for any hydronephrosis. Carey catheter is in place. 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 Ammonia level is elevated and the patient has been maintained on a combination of diuretics including Lasix and Aldactone and lactulose on outpatient basis 12 history of thrombocytopenia 13 history of acid reflux 14 history of pancreatitis 15 history of frequent falls with previous left hip surgery with intramedullary nailing Plan No need for pressors Continue D5 water at the rate of 150. An hour Monitor x-rays every 4-6 hours Monitor renal function and keep the Carey catheter in place Aspiration precautions and keep the patient nothing by mouth for now and hold the rest of the oral medication as the patient is not awake enough to take any oral medications Will monitor the ammonia level Monitor lactic acid level Put the patient on heparin subcu for DVT prophylaxis Lovenox per scale We'll continue to follow
[2020-03-13 16:12] LABS: Calcium 8.5 mg/dL (8.4-10.2); Potassium 3.3 mmol/L (3.5-5.1)
[2020-03-13] MEDS: NOREPINEPHRINE 4 MG in SODIUM CHLORIDE 0.9% 250 ML IV SCH (16:22)
[2020-03-13] MEDS: LACTULOSE 200 GM/300 ML (FROM 1/2 GAL JUG) RECTAL SCH ×2 (16:46→16:47)
[2020-03-13 17:20] LABS: Glucose,Whole Blood 118 mg/dL (75-99)
[2020-03-13] MEDS: POTASSIUM CHLORIDE 20 MEQ in WATER FOR INJECTION 1 100ML.BAG IVPB SCH ×2 (18:22→20:30)
[2020-03-13] MEDS ORDERED: VANCOMYCIN 1,000 MG in SODIUM CHLORIDE 0.9% 250 ML IVPB STA (18:49)
[2020-03-13 21:12] LABS: Calcium 8.8 mg/dL (8.4-10.2); Potassium 4.1 mmol/L (3.5-5.1)
[2020-03-14] MEDS: LACTULOSE 200 GM/300 ML (FROM 1/2 GAL JUG) RECTAL SCH ×2 (00:09→05:36)
[2020-03-14] MEDS: HEPARIN SODIUM,PORCINE 5,000 UNIT/ML 1 ML VIAL SQ SCH ×4 (00:09→20:50)
[2020-03-14 00:38] LABS: Glucose,Whole Blood 131 mg/dL (75-99)
[2020-03-14] MEDS ORDERED: VANCOMYCIN IV PER PHARMACY 1 EACH MISC MISCELLANE SCH (01:30)
--- NOTE | 2020-03-14 02:41 | XR ---
EXAMINATION TYPE: XR chest 1V portable DATE OF EXAM: 03/14/2020 COMPARISON: 03/13/2020 HISTORY: Short of breath TECHNIQUE: Single view. Heart is normal. Lungs are clear of consolidation. There are no hilar masses. There are chest leads. Bony thorax is intact. IMPRESSION: No active cardiopulmonary disease. No change.
[2020-03-14 03:39] LABS: HCT 43.6 % (39.0-53.0); HGB 13.5 gm/dL (13.0-17.5); MCH 32.6 pg (25.0-35.0); MCHC 30.9 g/dL (31.0-37.0); MCV 105.5 fL (80.0-100.0); Mean Platelet Volume 9.4; Platelet Count 224 k/uL (150-450); RBC 4.13 m/uL (4.30-5.90); RDW 16.7 % (11.5-15.5); WBC 21.3 k/uL (3.8-10.6)
[2020-03-14 03:40] LABS: Anisocytosis Slight; Basophils # (A) 0.1 k/uL (0-0.2); Basophils % (A) 0 %; Eosinophils # (A) 0.1 k/uL (0-0.7); Eosinophils % (A) 0 %; Hypochromasia Marked; Lymphocytes # (A) 2.6 k/uL (1.0-4.8); Lymphocytes % (A) 12 %; Macrocytosis Moderate; Monocytes # (A) 1.5 k/uL (0-1.0); Monocytes % (A) 7 %; Neutrophils # (A) 16.7 k/uL (1.3-7.7); Neutrophils % (A) 78 %
[2020-03-14 03:49] LABS: Albumin 2.7 g/dL (3.5-5.0); Calcium 8.8 mg/dL (8.4-10.2); Magnesium 2.6 mg/dL (1.6-2.3); Potassium 4.7 mmol/L (3.5-5.1); Total Bilirubin 7.7 mg/dL (0.2-1.3); Total Protein 6.2 g/dL (6.3-8.2)
[2020-03-14 04:16] LABS: Glucose,Whole Blood 147 mg/dL (75-99)
[2020-03-14] MEDS ORDERED: SODIUM CHLORIDE 0.45% 1,000 ML IV SCH (05:30)
[2020-03-14] MEDS: NOREPINEPHRINE 4 MG in SODIUM CHLORIDE 0.9% 250 ML IV SCH ×3 (05:37→19:03)
[2020-03-14 06:04] LABS: Glucose,Whole Blood 175 mg/dL (75-99)
[2020-03-14] MEDS: INSULIN ASPART (NovoLOG) 100 UNIT/ML VIAL SQ SCH ×3 (06:09→16:36)
[2020-03-14] MEDS ORDERED: VANCOMYCIN IV PER PHARMACY 1 EACH MISC MISCELLANE PRN (07:32)
[2020-03-14] MEDS ORDERED: PHYTONADIONE ORAL 5 MG/5 ML ORAL.SYRG PO STA (07:35)
[2020-03-14 07:57] LABS: Glucose,Whole Blood 139 mg/dL (75-99)
[2020-03-14] MEDS: RIFAXIMIN 550 MG TABLET PO SCH ×2 (08:06→20:49)
--- NOTE | 2020-03-14 08:23 | XR ---
EXAMINATION TYPE: XR chest 1V portable DATE OF EXAM: 03/14/2020 COMPARISON: 03/14/2020 INDICATION: NG tube placement TECHNIQUE: Single frontal view of the chest is obtained. FINDINGS: The heart size is normal. The pulmonary vasculature is normal. Mild infiltrate is in the retrocardiac region. This is developing from comparison. There is placement of a nasogastric tube, tip is out of the [id number] within the abdomen. IMPRESSION: 1. Developing left lower lobe infiltrate. Correlate for pneumonia or atelectasis. 2. Nasogastric tube transverses the thorax the tip within the abdomen.
--- NOTE | 2020-03-14 08:57 | P.PN ---
Subjective Progress Note Date: 03/14/20 Principal diagnosis: Altered mental status Patient remained obtunded today. His blood pressure dropped overnight and he was started on a low-dose levo fed. Ammonia level 160. He is making minimal urine. Objective - Vital Signs Vital signs: Vital Signs Temp 96.7 F L 03/14/20 04:00 Pulse 110 H 03/14/20 07:00 Resp 28 H 03/14/20 07:00 BP 80/52 03/14/20 07:00 Pulse Ox 94 L 03/14/20 07:00 Intake & Output 03/13/20 03/14/20 03/14/20 18:59 06:59 18:59 Intake Total 2910 837.578 300 Output Total 153 210 40 Balance 2757 627.578 260 Weight 88.451 kg 75.1 kg Intake: IV 2780 570 300 Dextrose 5% in Water 1, 1650 000 ml @ 150 mls/hr IV . Q6H40M [facility] Rx#:[id number] Dextrose 5% in Water 1, 1000 000 ml @ 999 mls/hr IV . Q1H1M [facility] Rx#:[id number] Sodium Chloride 0.45% 1, 570 300 000 ml @ 100 mls/hr IV . Q10H [facility] Rx#:[id number] Sodium Chloride 0.45% 1, 130 000 ml @ 130 mls/hr IV . Q7H42M [facility] Rx#:[id number] Intake, IV Titration 130 267.578 Amount Norepinephrine 4 mg In 267.578 Sodium Chloride 0.9% 250 ml @ 0.05 MCG/KG/MIN 16. 85 mls/hr IV .Q15H5M [facility] Rx#:[id number] Sodium Chloride 0.9% 1, 130 000 ml @ 130 mls/hr IV . Q7H42M [facility] Rx#:[id number] Output: Urine 153 210 40 Other: Voiding Method Indwelling Catheter Indwelling Catheter Indwelling Catheter # Bowel Movements 1 - Exam General: The patient is obtunded. He appears chronically ill. Eye: there is normal conjunctiva bilaterally. Neck: The neck is supple, there is no JVD. Cardiovascular: Normal S1-S2, no S3-S4, no murmurs. Respiratory: Lungs clear to auscultation bilaterally Gastrointestinal: Abdomen is soft, nontender Musculoskeletal: There is no pedal edema. Skin: Skin is warm and dry - Labs CBC & Chem 7: 03/14/20 03:12 03/14/20 03:12 Labs: Abnormal Lab Results - Last 24 Hours (Table) 03/13/20 03/13/20 03/13/20 Range/Units 05:55 08:51 11:50 WBC (3.8-10.6) k/uL RBC (4.30-5.90) m/uL MCV (80.0-100.0) fL MCHC (31.0-37.0) g/dL RDW (11.5-15.5) % Neutrophils # (1.3-7.7) k/uL Monocytes # (0-1.0) k/uL Sodium 167 H* (137-145) mmol/L Potassium (3.5-5.1) mmol/L Chloride 135 H* (98-107) mmol/L Carbon Dioxide 13 L (22-30) mmol/L BUN 167 H* (9-20) mg/dL Creatinine 5.37 H (0.66-1.25) mg/dL Glucose 139 H (74-99) mg/dL POC Glucose (mg/dL) 262 H (75-99) mg/dL Plasma Lactic Acid Adithya 3.6 H* (0.7-2.0) mmol/L Magnesium (1.6-2.3) mg/dL Total Bilirubin (0.2-1.3) mg/dL Alkaline Phosphatase (38-126) U/L Ammonia (<30) umol/L Total Protein (6.3-8.2) g/dL Albumin (3.5-5.0) g/dL 03/13/20 03/13/20 03/13/20 Range/Units 13:21 15:47 15:51 WBC (3.8-10.6) k/uL RBC (4.30-5.90) m/uL MCV (80.0-100.0) fL MCHC (31.0-37.0) g/dL RDW (11.5-15.5) % Neutrophils # (1.3-7.7) k/uL Monocytes # (0-1.0) k/uL Sodium 155 H (137-145) mmol/L Potassium 3.3 L (3.5-5.1) mmol/L Chloride 125 H (98-107) mmol/L Carbon Dioxide 15 L (22-30) mmol/L BUN 157 H* (9-20) mg/dL Creatinine 5.36 H (0.66-1.25) mg/dL Glucose 144 H (74-99) mg/dL POC Glucose (mg/dL) (75-99) mg/dL Plasma Lactic Acid Adithya 5.2 H* 4.7 H* (0.7-2.0) mmol/L Magnesium (1.6-2.3) mg/dL Total Bilirubin (0.2-1.3) mg/dL Alkaline Phosphatase (38-126) U/L Ammonia (<30) umol/L Total Protein (6.3-8.2) g/dL Albumin (3.5-5.0) g/dL 03/13/20 03/13/20 03/13/20 Range/Units 17:19 18:43 20:46 WBC (3.8-10.6) k/uL RBC (4.30-5.90) m/uL MCV (80.0-100.0) fL MCHC (31.0-37.0) g/dL RDW (11.5-15.5) % Neutrophils # (1.3-7.7) k/uL Monocytes # (0-1.0) k/uL Sodium 154 H (137-145) mmol/L Potassium (3.5-5.1) mmol/L Chloride 125 H (98-107) mmol/L Carbon Dioxide 14 L (22-30) mmol/L BUN 157 H* (9-20) mg/dL Creatinine 5.31 H (0.66-1.25) mg/dL Glucose 125 H (74-99) mg/dL POC Glucose (mg/dL) 118 H (75-99) mg/dL Plasma Lactic Acid Adithya 3.7 H* (0.7-2.0) mmol/L Magnesium (1.6-2.3) mg/dL Total Bilirubin (0.2-1.3) mg/dL Alkaline Phosphatase (38-126) U/L Ammonia (<30) umol/L Total Protein (6.3-8.2) g/dL Albumin (3.5-5.0) g/dL 10/10/2603/13/20 03/14/20 Range/Units 20:46 23:35 00:33 WBC (3.8-10.6) k/uL RBC (4.30-5.90) m/uL MCV (80.0-100.0) fL MCHC (31.0-37.0) g/dL RDW (11.5-15.5) % Neutrophils # (1.3-7.7) k/uL Monocytes # (0-1.0) k/uL Sodium (137-145) mmol/L Potassium (3.5-5.1) mmol/L Chloride (98-107) mmol/L Carbon Dioxide (22-30) mmol/L BUN (9-20) mg/dL Creatinine (0.66-1.25) mg/dL Glucose (74-99) mg/dL POC Glucose (mg/dL) 131 H (75-99) mg/dL Plasma Lactic Acid Adithya 3.9 H* 3.6 H* (0.7-2.0) mmol/L Magnesium (1.6-2.3) mg/dL Total Bilirubin (0.2-1.3) mg/dL Alkaline Phosphatase (38-126) U/L Ammonia (<30) umol/L Total Protein (6.3-8.2) g/dL Albumin (3.5-5.0) g/dL 03/14/20 03/14/20 03/14/20 Range/Units 03:12 03:12 03:12 WBC 21.3 H (3.8-10.6) k/uL RBC 4.13 L (4.30-5.90) m/uL MCV 105.5 H (80.0-100.0) fL MCHC 30.9 L (31.0-37.0) g/dL RDW 16.7 H (11.5-15.5) % Neutrophils # 16.7 H (1.3-7.7) k/uL Monocytes # 1.5 H (0-1.0) k/uL Sodium 156 H (137-145) mmol/L Potassium (3.5-5.1) mmol/L Chloride 125 H (98-107) mmol/L Carbon Dioxide 15 L (22-30) mmol/L BUN 165 H* (9-20) mg/dL Creatinine 5.45 H (0.66-1.25) mg/dL Glucose 157 H (74-99) mg/dL POC Glucose (mg/dL) (75-99) mg/dL Plasma Lactic Acid Adithya (0.7-2.0) mmol/L Magnesium 2.6 H (1.6-2.3) mg/dL Total Bilirubin 7.7 H (0.2-1.3) mg/dL Alkaline Phosphatase 157 H (38-126) U/L Ammonia 159 H (<30) umol/L Total Protein 6.2 L (6.3-8.2) g/dL Albumin 2.7 L (3.5-5.0) g/dL 03/14/20 03/14/20 03/14/20 Range/Units 03:12 04:14 06:02 WBC (3.8-10.6) k/uL RBC (4.30-5.90) m/uL MCV (80.0-100.0) fL MCHC (31.0-37.0) g/dL RDW (11.5-15.5) % Neutrophils # (1.3-7.7) k/uL Monocytes # (0-1.0) k/uL Sodium (137-145) mmol/L Potassium (3.5-5.1) mmol/L Chloride (98-107) mmol/L Carbon Dioxide (22-30) mmol/L BUN (9-20) mg/dL Creatinine (0.66-1.25) mg/dL Glucose (74-99) mg/dL POC Glucose (mg/dL) 147 H 175 H (75-99) mg/dL Plasma Lactic Acid Adithya 4.4 H* (0.7-2.0) mmol/L Magnesium (1.6-2.3) mg/dL Total Bilirubin (0.2-1.3) mg/dL Alkaline Phosphatase (38-126) U/L Ammonia (<30) umol/L Total Protein (6.3-8.2) g/dL Albumin (3.5-5.0) g/dL 03/14/20 03/14/20 Range/Units 06:13 07:55 WBC (3.8-10.6) k/uL RBC (4.30-5.90) m/uL MCV (80.0-100.0) fL MCHC (31.0-37.0) g/dL RDW (11.5-15.5) % Neutrophils # (1.3-7.7) k/uL Monocytes # (0-1.0) k/uL Sodium (137-145) mmol/L Potassium (3.5-5.1) mmol/L Chloride (98-107) mmol/L Carbon Dioxide (22-30) mmol/L BUN (9-20) mg/dL Creatinine (0.66-1.25) mg/dL Glucose (74-99) mg/dL POC Glucose (mg/dL) 139 H (75-99) mg/dL Plasma Lactic Acid Adithya 5.6 H* (0.7-2.0) mmol/L Magnesium (1.6-2.3) mg/dL Total Bilirubin (0.2-1.3) mg/dL Alkaline Phosphatase (38-126) U/L Ammonia (<30) umol/L Total Protein (6.3-8.2) g/dL Albumin (3.5-5.0) g/dL Microbiology - Last 24 Hours (Table) 03/13/20 02:23 Blood Culture - Preliminary Blood No Growth after 24 hours 03/13/20 03:00 Blood Culture Gram Stain - Preliminary Blood Blood Culture - Preliminary Staphylococcus aureus 03/13/20 02:23 Blood Culture - Final Blood Assessment and Plan Assessment: This is a 79-year-old male with complex past medical history noted below who presented to the emergency room from a local halfway with altered mental status and unresponsiveness. Patient was evaluated in the ER and currently admits to the hospital for further management of his medical problems noted below. 1. Severe hypernatremia: Secondary to dehydration. Sodium level on presentation 168. Trending down. Patient was treated aggressively with IV fluid hydration. 2. Acute kidney injury, oliguric. With severe uremia. Nephrology following. Kidney ultrasound showed evidence of parenchymal thinning and cortical medullary disease. No hydronephrosis noted. 3. Hepatic encephalopathy with ammonia level of 86 on presentation now up to 159. I started the patient on lactulose but this was discontinued by ICU team with concerns about dehydration/diarrhea. I communicated my recommendation to continue lactulose every 2 hours with a goal of 3-5 bowel movements per day. Patient was started on rifaximin. We'll continue to monitor ammonia level daily. 4. Acute toxo metabolic encephalopathy secondary to above. Computed tomography scan of the head showed no acute intracranial findings 5. MSSA bacteremia: 1/2 sets on 03/13 positive for MSSA. Patient was given 1 dose of vancomycin and will be transitioned to IV cefazolin. Source of infection not clear. I would consult infectious disease for further evaluation. 6. Severe sepsis with septic shock requiring low-dose levophed. Source of infection not clear to me. Lactic acid trending down. 7. Underlying liver disease/cirrhosis, unclear etiology. Patient's son is not sure whether patient has underlying hepatitis. He told me his father was never a heavy drinker. I would order an acute hepatitis panel to rule out chronic hep C. 8. DVT prophylaxis: With subcu heparin 9. CODE STATUS: Patient is full code. Discussed with his son at bedside. Today, I reviewed his medication list and lab work results. Appreciate [employer] consultant's recommendations. Continue IV fluid hydration. Repeat BMP this afternoon.
[2020-03-14] MEDS ORDERED: VANCOMYCIN 1,500 MG in SODIUM CHLORIDE 0.9% 250 ML IVPB ONE (09:00)
--- NOTE | 2020-03-14 09:49 | P.PN ---
Subjective Patient is seen in follow-up for acute kidney injury and hypernatremia. Sodium level 156 this morning. I had resumed half-normal saline which has now been changed to D5 with 2 A of bicarb running at 75 mL an hour. Patient remains confused. Remains oliguric with urine output 10-20 mL an hour. He is also on low-dose Levophed. Vital signs are stable. General: The patient appeared well nourished and normally developed. NG tube noted. HEENT: Head exam is unremarkable. Neck is without jugular venous distension. LUNGS: Lungs are clear to auscultation and percussion. Breath sounds decreased. HEART: Rate and Rhythm are regular. ABDOMEN: Soft, nontender. EXTREMITITES: No clubbing, cyanosis, or edema. Objective - Vital Signs Vital signs: Vital Signs Temp 97.8 F 03/14/20 08:00 Pulse 112 H 03/14/20 08:00 Resp 27 H 03/14/20 08:00 BP 99/61 03/14/20 08:00 Pulse Ox 97 03/14/20 08:00 Intake & Output 03/13/20 03/14/20 03/14/20 18:59 06:59 18:59 Intake Total 2910 837.578 300 Output Total 153 210 40 Balance 2757 627.578 260 Weight 88.451 kg 75.1 kg Intake: IV 2780 570 300 Dextrose 5% in Water 1, 1650 000 ml @ 150 mls/hr IV . Q6H40M [facility] Rx#:[id number] Dextrose 5% in Water 1, 1000 000 ml @ 999 mls/hr IV . Q1H1M [facility] Rx#:[id number] Sodium Chloride 0.45% 1, 570 300 000 ml @ 100 mls/hr IV . Q10H [facility] Rx#:[id number] Sodium Chloride 0.45% 1, 130 000 ml @ 130 mls/hr IV . Q7H42M [facility] Rx#:[id number] Intake, IV Titration 130 267.578 Amount Norepinephrine 4 mg In 267.578 Sodium Chloride 0.9% 250 ml @ 0.05 MCG/KG/MIN 16. 85 mls/hr IV .Q15H5M [facility] Rx#:[id number] Sodium Chloride 0.9% 1, 130 000 ml @ 130 mls/hr IV . Q7H42M [facility] Rx#:[id number] Output: Urine 153 210 40 Other: Voiding Method Indwelling Catheter Indwelling Catheter Indwelling Catheter # Bowel Movements 1 - Labs CBC & Chem 7: 03/14/20 03:12 03/14/20 03:12 Labs: Abnormal Lab Results - Last 24 Hours (Table) 03/13/20 03/13/20 03/13/20 Range/Units 08:51 11:50 13:21 WBC (3.8-10.6) k/uL RBC (4.30-5.90) m/uL MCV (80.0-100.0) fL MCHC (31.0-37.0) g/dL RDW (11.5-15.5) % Neutrophils # (1.3-7.7) k/uL Monocytes # (0-1.0) k/uL Sodium (137-145) mmol/L Potassium (3.5-5.1) mmol/L Chloride (98-107) mmol/L Carbon Dioxide (22-30) mmol/L BUN (9-20) mg/dL Creatinine (0.66-1.25) mg/dL Glucose (74-99) mg/dL POC Glucose (mg/dL) 262 H (75-99) mg/dL Plasma Lactic Acid Adithya 3.6 H* 5.2 H* (0.7-2.0) mmol/L Magnesium (1.6-2.3) mg/dL Total Bilirubin (0.2-1.3) mg/dL Alkaline Phosphatase (38-126) U/L Ammonia (<30) umol/L Total Protein (6.3-8.2) g/dL Albumin (3.5-5.0) g/dL 03/13/20 03/13/20 03/13/20 Range/Units 15:47 15:51 17:19 WBC (3.8-10.6) k/uL RBC (4.30-5.90) m/uL MCV (80.0-100.0) fL MCHC (31.0-37.0) g/dL RDW (11.5-15.5) % Neutrophils # (1.3-7.7) k/uL Monocytes # (0-1.0) k/uL Sodium 155 H (137-145) mmol/L Potassium 3.3 L (3.5-5.1) mmol/L Chloride 125 H (98-107) mmol/L Carbon Dioxide 15 L (22-30) mmol/L BUN 157 H* (9-20) mg/dL Creatinine 5.36 H (0.66-1.25) mg/dL Glucose 144 H (74-99) mg/dL POC Glucose (mg/dL) 118 H (75-99) mg/dL Plasma Lactic Acid Adithya 4.7 H* (0.7-2.0) mmol/L Magnesium (1.6-2.3) mg/dL Total Bilirubin (0.2-1.3) mg/dL Alkaline Phosphatase (38-126) U/L Ammonia (<30) umol/L Total Protein (6.3-8.2) g/dL Albumin (3.5-5.0) g/dL 03/13/20 03/13/20 03/13/20 Range/Units 18:43 20:46 20:46 WBC (3.8-10.6) k/uL RBC (4.30-5.90) m/uL MCV (80.0-100.0) fL MCHC (31.0-37.0) g/dL RDW (11.5-15.5) % Neutrophils # (1.3-7.7) k/uL Monocytes # (0-1.0) k/uL Sodium 154 H (137-145) mmol/L Potassium (3.5-5.1) mmol/L Chloride 125 H (98-107) mmol/L Carbon Dioxide 14 L (22-30) mmol/L BUN 157 H* (9-20) mg/dL Creatinine 5.31 H (0.66-1.25) mg/dL Glucose 125 H (74-99) mg/dL POC Glucose (mg/dL) (75-99) mg/dL Plasma Lactic Acid Adithya 3.7 H* 3.9 H* (0.7-2.0) mmol/L Magnesium (1.6-2.3) mg/dL Total Bilirubin (0.2-1.3) mg/dL Alkaline Phosphatase (38-126) U/L Ammonia (<30) umol/L Total Protein (6.3-8.2) g/dL Albumin (3.5-5.0) g/dL 03/13/20 03/14/20 03/14/20 Range/Units 23:35 00:33 03:12 WBC 21.3 H (3.8-10.6) k/uL RBC 4.13 L (4.30-5.90) m/uL MCV 105.5 H (80.0-100.0) fL MCHC 30.9 L (31.0-37.0) g/dL RDW 16.7 H (11.5-15.5) % Neutrophils # 16.7 H (1.3-7.7) k/uL Monocytes # 1.5 H (0-1.0) k/uL Sodium (137-145) mmol/L Potassium (3.5-5.1) mmol/L Chloride (98-107) mmol/L Carbon Dioxide (22-30) mmol/L BUN (9-20) mg/dL Creatinine (0.66-1.25) mg/dL Glucose (74-99) mg/dL POC Glucose (mg/dL) 131 H (75-99) mg/dL Plasma Lactic Acid Adithya 3.6 H* (0.7-2.0) mmol/L Magnesium (1.6-2.3) mg/dL Total Bilirubin (0.2-1.3) mg/dL Alkaline Phosphatase (38-126) U/L Ammonia (<30) umol/L Total Protein (6.3-8.2) g/dL Albumin (3.5-5.0) g/dL 03/14/20 03/14/20 03/14/20 Range/Units 03:12 03:12 03:12 WBC (3.8-10.6) k/uL RBC (4.30-5.90) m/uL MCV (80.0-100.0) fL MCHC (31.0-37.0) g/dL RDW (11.5-15.5) % Neutrophils # (1.3-7.7) k/uL Monocytes # (0-1.0) k/uL Sodium 156 H (137-145) mmol/L Potassium (3.5-5.1) mmol/L Chloride 125 H (98-107) mmol/L Carbon Dioxide 15 L (22-30) mmol/L BUN 165 H* (9-20) mg/dL Creatinine 5.45 H (0.66-1.25) mg/dL Glucose 157 H (74-99) mg/dL POC Glucose (mg/dL) (75-99) mg/dL Plasma Lactic Acid Adithya 4.4 H* (0.7-2.0) mmol/L Magnesium 2.6 H (1.6-2.3) mg/dL Total Bilirubin 7.7 H (0.2-1.3) mg/dL Alkaline Phosphatase 157 H (38-126) U/L Ammonia 159 H (<30) umol/L Total Protein 6.2 L (6.3-8.2) g/dL Albumin 2.7 L (3.5-5.0) g/dL 03/14/20 03/14/20 03/14/20 Range/Units 04:14 06:02 06:13 WBC (3.8-10.6) k/uL RBC (4.30-5.90) m/uL MCV (80.0-100.0) fL MCHC (31.0-37.0) g/dL RDW (11.5-15.5) % Neutrophils # (1.3-7.7) k/uL Monocytes # (0-1.0) k/uL Sodium (137-145) mmol/L Potassium (3.5-5.1) mmol/L Chloride (98-107) mmol/L Carbon Dioxide (22-30) mmol/L BUN (9-20) mg/dL Creatinine (0.66-1.25) mg/dL Glucose (74-99) mg/dL POC Glucose (mg/dL) 147 H 175 H (75-99) mg/dL Plasma Lactic Acid Adithya 5.6 H* (0.7-2.0) mmol/L Magnesium (1.6-2.3) mg/dL Total Bilirubin (0.2-1.3) mg/dL Alkaline Phosphatase (38-126) U/L Ammonia (<30) umol/L Total Protein (6.3-8.2) g/dL Albumin (3.5-5.0) g/dL 03/14/20 Range/Units 07:55 WBC (3.8-10.6) k/uL RBC (4.30-5.90) m/uL MCV (80.0-100.0) fL MCHC (31.0-37.0) g/dL RDW (11.5-15.5) % Neutrophils # (1.3-7.7) k/uL Monocytes # (0-1.0) k/uL Sodium (137-145) mmol/L Potassium (3.5-5.1) mmol/L Chloride (98-107) mmol/L Carbon Dioxide (22-30) mmol/L BUN (9-20) mg/dL Creatinine (0.66-1.25) mg/dL Glucose (74-99) mg/dL POC Glucose (mg/dL) 139 H (75-99) mg/dL Plasma Lactic Acid Adithya (0.7-2.0) mmol/L Magnesium (1.6-2.3) mg/dL Total Bilirubin (0.2-1.3) mg/dL Alkaline Phosphatase (38-126) U/L Ammonia (<30) umol/L Total Protein (6.3-8.2) g/dL Albumin (3.5-5.0) g/dL Microbiology - Last 24 Hours (Table) 03/13/20 02:23 Blood Culture - Preliminary Blood No Growth after 24 hours 03/13/20 03:00 Blood Culture Gram Stain - Preliminary Blood Blood Culture - Preliminary Staphylococcus aureus 03/13/20 02:23 Blood Culture - Final Blood Assessment and Plan Plan: assessment: 1. Acute kidney injury secondary to ATN secondary to severe intravascular volume depletion and hypotension. Creatinine 6.01 on admission and is 5.45 today. Baseline creatinine near 1 from 03/02/2020. UA benign. No evidence of hydronephrosis noted on kidney ultrasound. 2. Severe hypernatremia secondary to lack of oral water intake - water deficit 7.4 L. 3. Metabolic acidosis secondary to acute kidney injury, lactic acidosis and IV fluids. he was also on metformin outpatient. 4. Septic shock secondary to MSSA bacteremia maintained on Levophed. 5. Staph aureus bacteremia maintained on antibiotics. 6. Altered mental status secondary to hepatic encephalopathy. Also concern for uremia. plan: I will increase the rate of D5 with 2 A of bicarb to 150 mL an hour. Avoid nephrotoxins. All diuretics held. Repeat BMP at noon today. Wean vasopressors. Continue to monitor renal function and urine output closely. Will discuss with the son the need to start renal replacement therapy if no improvement in his mentation and renal function in the next 24-48 hours.
[2020-03-14 10:29] VITALS: BMI 23.1
[2020-03-14] MEDS: DEXTROSE 5% IN WATER 1,000 ML with SODIUM BICARB (1 MEQ/ML) 100 ML IV SCH ×2 (11:11→19:05)
--- NOTE | 2020-03-14 11:42 | P.PN ---
Subjective Progress Note Date: 03/14/20 79-year-old male patient, multiple comorbidities, history of coronary artery disease, diabetes mellitus, hyperlipidemia and previous history of falls with fractures of the hip was in the hospital approximately 10 days ago and the patient was discharged to a shelter. Based on the discharge summary from 03/03/2020, the patient had a fall and x-rays of the hip showed a acute displaced right femoral neck fracture. The patient was admitted for further management and he was seen by orthopedic surgery. The patient did not have surgery. He received pain management. The patient was asked to bear some weight as tolerated. Orthopedic surgery recommended conservative management. The patient back then and appears to have some poor baseline performance and functional status. He was not oriented to time and place at all times. At other times he was found to be more alert. He was not ambulating. He was seen by Dr. Rai and his recommendations was that this appears to be a chronic versus subacute fracture. Note that the patient has already had a previous left hip fracture with intramedullary nailing. It was recommended to proceed with conservative management at that point in time. Note that after the patient was released to [facility], his condition was progressively getting worse. He was not eating. He came in to the ED yesterday severely dehydrated. Based on available information, the patient was quite lethargic and was not responding to verbal stimulation. His sodium level was 168. He received a total of 2 L of normal saline and he was switched to half-normal saline and his urine output was in the order of 5-10 mL an hour. He was taking metformin, L asix, Aldactone was also taken lactulose for presumptive liver disease and there is a questionable history of alcoholism. He did not require any pressors. I saw the patient in the ICU this morning. He was still dry despite taking all this fluids. I gave her another bolus of IV fluids and I put him on a D5 water infusion today to 1 50 mL an hour. Note that the patient was in acute kidney injury. His creatinine was up to 6.01. The repeat electrolytes within 4 hours so that the sodium level was down to 167. The patient's creatinine was also down to 5.37. The anion gap was at 19. Serum bicarb was at 13. Glucose level was 129 and later on came up to 262. Lactic acid level was as high as 7.2 and dropped down to 3.6. His INR was at 2 with a PT of 19.3 and a PTT of 27.3. The UA was negative. AST and ALP were within normal limits. Alkaline phosphatase was 198. Ammonia level was 86. The white cell count of 18.3. The CAT scan of the brain is showing age-related atrophy otherwise negative. 03/14/2020 and seeing the patient for a follow-up. Since yesterday, the patient was being resuscitated with IV fluids. Initially was given D5 water and later on the patient was switched to half-normal saline at the rate of 150 mL an hour. The patient is also on pressors with norepinephrine infusion running at 0.09 g per KG per minute. There is been some interval improvement in his sodium level which is currently down to 154 and later on to 156. The patient continues to have an elevated BUN of 165. Creatinine is at 5.45. Lactic acid level is up to 6.1. Liver function tests are normal in regards to AST and ALP and alkaline phosphatase is at 157. The patient has a white cell count of 21.3. Coagulation profile was slightly abnormal with an INR of 2 with a PT of 19.3 and a PTT of 27.3. The TSH was within normal at 1.3. Albumin is 3.5 with a total protein of 7.3 from yesterday. UA was negative. Neurologically the patient is still the same as yesterday. Is quite obtunded and not following any commands. Based on his overall poor baseline performance and functional status and nutritional status, I recommended NG tube insertion today for enteral feeding and nutr itional support. Meanwhile, I've also recommended some free water supplements through the NG tube. In regards to his high ammonia level, this is probably related to malnourishment and catabolic state. There may be a component of chronic renal insufficiency. I will hold the lactulose fornow especially that the patientintravascular depleted and the patient will be given Xifaxan instead. The blood culture came back positive for staph aureus, likely MSSA and the patient will be covered with IV cefazolin. As for the IV fluids, there is a drop in a bicarb 15 resulting into mild anion gap metabolic acidosis. I switched IV fluids to D5 with 2 ampules of sodium bicarbonate 50 mEq running at 75 mL an hour. Objective - Vital Signs Vital signs: Vital Signs Temp 97.8 F 03/14/20 08:00 Pulse 112 H 03/14/20 08:00 Resp 27 H 03/14/20 08:00 BP 99/61 03/14/20 08:00 Pulse Ox 97 03/14/20 08:00 Intake & Output 03/13/20 03/14/20 03/14/20 18:59 06:59 18:59 Intake Total 2910 837.578 464.736 Output Total 153 210 40 Balance 2757 627.578 424.736 Weight 88.451 kg 75.1 kg 75.1 kg Intake: IV 2780 570 300 Dextrose 5% in Water 1, 1650 000 ml @ 150 mls/hr IV . Q6H40M [facility] Rx#:[id number] Dextrose 5% in Water 1, 1000 000 ml @ 999 mls/hr IV . Q1H1M [facility] Rx#:[id number] Sodium Chloride 0.45% 1, 570 300 000 ml @ 100 mls/hr IV . Q10H [facility] Rx#:[id number] Sodium Chloride 0.45% 1, 130 000 ml @ 130 mls/hr IV . Q7H42M [facility] Rx#:[id number] Intake, IV Titration 130 267.578 164.736 Amount Norepinephrine 4 mg In 267.578 164.736 Sodium Chloride 0.9% 250 ml @ 0.05 MCG/KG/MIN 16. 85 mls/hr IV .Q15H5M [facility] Rx#:[id number] Sodium Chloride 0.9% 1, 130 000 ml @ 130 mls/hr IV . Q7H42M [facility] Rx#:[id number] Output: Urine 153 210 40 Other: Voiding Method Indwelling Catheter Indwelling Catheter Indwelling Catheter # Bowel Movements 1 - Exam Gen. appearance the patient is lethargic, somnolent and sleepy, not responding to stimulation. The patient is quite cachectic and emaciated. He is BMI 27.2. He is calm and comfortable. No acute the patient has an NG tube in place for now. The position of the NG tube was confirmed by chest x-ray. Head exam was generally normal. There was no scleral icterus or corneal arcus. Mucous membranes remain dry although improved compared to yesterday. Neck was supple and without jugular venous distension, thyromegaly, or carotid bruits. Carotids were easily palpable bilaterally. There was no adenopathy. Lungs were clear to auscultation and percussion, and with normal diaphragmatic excursion. No wheezes or rales were noted. Cardiac exam revealed the PMI to be normally situated and sized. The rhythm was regular and no extrasystoles were noted during several minutes of auscultation. The first and second heart sounds were normal and physiologic splitting of the second heart sound was noted. There were no murmurs, rubs, clicks, or gallops. Abdominal exam revealed normal bowel sounds. The abdomen was soft, non-tender, and without masses, organomegaly, or appreciable enlargement of the abdominal aorta. Extremities are dry. There is no edema. No cyanosis. No clubbing. Previous surgical scar over the hip is seen on the left. neurologically, the patient withdraws only to painful stimulation. Pupils are equal and reactive to light. No nystagmus. No clonus. No focal neurological deficits. - Labs CBC & Chem 7: 03/14/20 03:12 03/14/20 03:12 Labs: Abnormal Lab Results - Last 24 Hours (Table) 03/13/20 03/13/20 03/13/20 Range/Units 11:50 13:21 15:47 WBC (3.8-10.6) k/uL RBC (4.30-5.90) m/uL MCV (80.0-100.0) fL MCHC (31.0-37.0) g/dL RDW (11.5-15.5) % Neutrophils # (1.3-7.7) k/uL Monocytes # (0-1.0) k/uL Sodium 155 H (137-145) mmol/L Potassium 3.3 L (3.5-5.1) mmol/L Chloride 125 H (98-107) mmol/L Carbon Dioxide 15 L (22-30) mmol/L BUN 157 H* (9-20) mg/dL Creatinine 5.36 H (0.66-1.25) mg/dL Glucose 144 H (74-99) mg/dL POC Glucose (mg/dL) 262 H (75-99) mg/dL Plasma Lactic Acid Adithya 5.2 H* (0.7-2.0) mmol/L Magnesium (1.6-2.3) mg/dL Total Bilirubin (0.2-1.3) mg/dL Alkaline Phosphatase (38-126) U/L Ammonia (<30) umol/L Total Protein (6.3-8.2) g/dL Albumin (3.5-5.0) g/dL 03/13/20 03/13/20 03/13/20 Range/Units 15:51 17:19 18:43 WBC (3.8-10.6) k/uL RBC (4.30-5.90) m/uL MCV (80.0-100.0) fL MCHC (31.0-37.0) g/dL RDW (11.5-15.5) % Neutrophils # (1.3-7.7) k/uL Monocytes # (0-1.0) k/uL Sodium (137-145) mmol/L Potassium (3.5-5.1) mmol/L Chloride (98-107) mmol/L Carbon Dioxide (22-30) mmol/L BUN (9-20) mg/dL Creatinine (0.66-1.25) mg/dL Glucose (74-99) mg/dL POC Glucose (mg/dL) 118 H (75-99) mg/dL Plasma Lactic Acid Adithya 4.7 H* 3.7 H* (0.7-2.0) mmol/L Magnesium (1.6-2.3) mg/dL Total Bilirubin (0.2-1.3) mg/dL Alkaline Phosphatase (38-126) U/L Ammonia (<30) umol/L Total Protein (6.3-8.2) g/dL Albumin (3.5-5.0) g/dL 03/13/20 03/13/20 03/13/20 Range/Units 20:46 20:46 23:35 WBC (3.8-10.6) k/uL RBC (4.30-5.90) m/uL MCV (80.0-100.0) fL MCHC (31.0-37.0) g/dL RDW (11.5-15.5) % Neutrophils # (1.3-7.7) k/uL Monocytes # (0-1.0) k/uL Sodium 154 H (137-145) mmol/L Potassium (3.5-5.1) mmol/L Chloride 125 H (98-107) mmol/L Carbon Dioxide 14 L (22-30) mmol/L BUN 157 H* (9-20) mg/dL Creatinine 5.31 H (0.66-1.25) mg/dL Glucose 125 H (74-99) mg/dL POC Glucose (mg/dL) (75-99) mg/dL Plasma Lactic Acid Adithya 3.9 H* 3.6 H* (0.7-2.0) mmol/L Magnesium (1.6-2.3) mg/dL Total Bilirubin (0.2-1.3) mg/dL Alkaline Phosphatase (38-126) U/L Ammonia (<30) umol/L Total Protein (6.3-8.2) g/dL Albumin (3.5-5.0) g/dL 03/14/20 03/14/20 03/14/20 Range/Units 00:33 03:12 03:12 WBC 21.3 H (3.8-10.6) k/uL RBC 4.13 L (4.30-5.90) m/uL MCV 105.5 H (80.0-100.0) fL MCHC 30.9 L (31.0-37.0) g/dL RDW 16.7 H (11.5-15.5) % Neutrophils # 16.7 H (1.3-7.7) k/uL Monocytes # 1.5 H (0-1.0) k/uL Sodium 156 H (137-145) mmol/L Potassium (3.5-5.1) mmol/L Chloride 125 H (98-107) mmol/L Carbon Dioxide 15 L (22-30) mmol/L BUN 165 H* (9-20) mg/dL Creatinine 5.45 H (0.66-1.25) mg/dL Glucose 157 H (74-99) mg/dL POC Glucose (mg/dL) 131 H (75-99) mg/dL Plasma Lactic Acid Adithya (0.7-2.0) mmol/L Magnesium 2.6 H (1.6-2.3) mg/dL Total Bilirubin 7.7 H (0.2-1.3) mg/dL Alkaline Phosphatase 157 H (38-126) U/L Ammonia (<30) umol/L Total Protein 6.2 L (6.3-8.2) g/dL Albumin 2.7 L (3.5-5.0) g/dL 03/14/20 03/14/20 03/14/20 Range/Units 03:12 03:12 04:14 WBC (3.8-10.6) k/uL RBC (4.30-5.90) m/uL MCV (80.0-100.0) fL MCHC (31.0-37.0) g/dL RDW (11.5-15.5) % Neutrophils # (1.3-7.7) k/uL Monocytes # (0-1.0) k/uL Sodium (137-145) mmol/L Potassium (3.5-5.1) mmol/L Chloride (98-107) mmol/L Carbon Dioxide (22-30) mmol/L BUN (9-20) mg/dL Creatinine (0.66-1.25) mg/dL Glucose (74-99) mg/dL POC Glucose (mg/dL) 147 H (75-99) mg/dL Plasma Lactic Acid Adithya 4.4 H* (0.7-2.0) mmol/L Magnesium (1.6-2.3) mg/dL Total Bilirubin (0.2-1.3) mg/dL Alkaline Phosphatase (38-126) U/L Ammonia 159 H (<30) umol/L Total Protein (6.3-8.2) g/dL Albumin (3.5-5.0) g/dL 03/14/20 03/14/20 03/14/20 Range/Units 06:02 06:13 07:55 WBC (3.8-10.6) k/uL RBC (4.30-5.90) m/uL MCV (80.0-100.0) fL MCHC (31.0-37.0) g/dL RDW (11.5-15.5) % Neutrophils # (1.3-7.7) k/uL Monocytes # (0-1.0) k/uL Sodium (137-145) mmol/L Potassium (3.5-5.1) mmol/L Chloride (98-107) mmol/L Carbon Dioxide (22-30) mmol/L BUN (9-20) mg/dL Creatinine (0.66-1.25) mg/dL Glucose (74-99) mg/dL POC Glucose (mg/dL) 175 H 139 H (75-99) mg/dL Plasma Lactic Acid Adithya 5.6 H* (0.7-2.0) mmol/L Magnesium (1.6-2.3) mg/dL Total Bilirubin (0.2-1.3) mg/dL Alkaline Phosphatase (38-126) U/L Ammonia (<30) umol/L Total Protein (6.3-8.2) g/dL Albumin (3.5-5.0) g/dL 03/14/20 Range/Units 09:10 WBC (3.8-10.6) k/uL RBC (4.30-5.90) m/uL MCV (80.0-100.0) fL MCHC (31.0-37.0) g/dL RDW (11.5-15.5) % Neutrophils # (1.3-7.7) k/uL Monocytes # (0-1.0) k/uL Sodium (137-145) mmol/L Potassium (3.5-5.1) mmol/L Chloride (98-107) mmol/L Carbon Dioxide (22-30) mmol/L BUN (9-20) mg/dL Creatinine (0.66-1.25) mg/dL Glucose (74-99) mg/dL POC Glucose (mg/dL) (75-99) mg/dL Plasma Lactic Acid Adithya 6.1 H* (0.7-2.0) mmol/L Magnesium (1.6-2.3) mg/dL Total Bilirubin (0.2-1.3) mg/dL Alkaline Phosphatase (38-126) U/L Ammonia (<30) umol/L Total Protein (6.3-8.2) g/dL Albumin (3.5-5.0) g/dL Microbiology - Last 24 Hours (Table) 03/13/20 03:00 Blood Culture Gram Stain - Preliminary Blood Blood Culture - Preliminary Staphylococcus aureus 03/13/20 02:23 Blood Culture - Preliminary Blood No Growth after 24 hours 03/13/20 02:23 Blood Culture - Final Blood Assessment and Plan Plan: 1 acute kidney injury secondary to severe intravascular volume depletion. Creatinine was at 6.01 at time of admission and the patient has no evidence of hydronephrosis. The patient was severely dehydrated with hyperchloremic hypernatremia in addition to that the patient had developed an acute kidney injury. The patient may be also septic and the patient has developed positive gram-positive cocci which turned out to be staph aureus in his blood. The patient's renal function continues to be impaired and the patient has a component of anion gap metabolic acidosis/lactic acidosis. 2 severe hyperchloremic hypernatremia secondary to water deficit, the patient is currently on D5 bicarb infusion running at 75 mL an hour 3 metabolic acidosis with lactic acidosis and anion gap type 4 sepsis secondary to staph aureus/MSSA with secondary hypotension secondary to above, improving, currently on no pressors and the patient has been switched IV cefazolin 5 history of right femoral neck fracture 6 poor oral intake and the patient has been progressively losing weight seems to be quite malnourished this point in time 7 coronary artery disease 8 COPD 9 diabetes mellitus 10 hyperlipidemia 11 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 Ammonia level is elevated and the patient has been maintained on a combination of diuretics including Lasix and Aldactone and lactulose on outpatient basis. Is also likely the elevated ammonia level was related to severe catabolic state and malnourishment. We'll hold off the lactulose for now we'll try to treat this patient with Xifaxan regarding his elevated ammonia levels. 12 history of thrombocytopenia 13 history of acid reflux 14 history of pancreatitis 15 history of frequent falls with previous left hip surgery with intramedullary nailing Plan Continue IV fluids with D5 and 100 mEq of sodium bicarbonate the rate of 75 mL an hour and supplement the patient with pressors [place] of NG 200 mL every 4 hours Monitor the sodium levels Monitor renal function and urine output Cover the patient IV cefazolin Monitor the ammonia level and give the patient Xifaxan for 50 mg by mouth or NG twice a day. NG tube has been established the patient will be started on enteral feeding for nutritional support. Dietary was consulted. Aspiration precautions Monitor lactic acid level Monitor ammonia level Hold lactulose for now due to concern of diarrhea and intravascular volume depletion Put the patient on heparin subcu for DVT prophylaxis Give the patient 10 mg of vitamin K Repeat electrolytes Poor prognosis we'll continue to follow
[2020-03-14 12:13] LABS: Glucose,Whole Blood 138 mg/dL (75-99)
[2020-03-14 12:36] LABS: Potassium 4.5 mmol/L (3.5-5.1)
[2020-03-14 14:14] LABS: Hemoglobin A1C 4.7 % (4.0-6.0)
--- NOTE | 2020-03-14 14:23 | CDI ---
Documentation Clarification Form Date: 03/14/2020 01:53:53 PM From: Sofía Trujillo RN, CCDS Admit Date: 03/13/2020 03:59:00 AM Patient Name: Ritchie Rosales Visit Number: [id number] Discharge Date: ATTENTION: The Clinical Documentation Specialists (CDI) and [facility] Coding Staff appreciate your assistance in clarifying documentation. Please respond to the clarification below the line at the bottom and electronically sign. The CDI & [facility] Coding staff will review the response and follow-up if needed. Please note: Queries are made part of the Legal Health Record. If you have any questions, please contact the author of this message via ITS. Dr. Jeana Rodriguez Malnutrition has been documented in the progress note starting on 03/13. Please provide further specificity for the degree of malnutrition. History/Risk Factors: Coronary artery disease, Diabetes Mellitus, Liver Disease, Renal failure Clinical Indicators: 79-year-old male who present to ED on 03/13 from [facility] with documentation of him not eating and was severely dehydrated with dry mucous membranes with cracking of the tongue noted per ED assessment 03/13 progress note: poor oral intake and the patient has been progressively losing weight seems to be quite malnourished this point in time 03/13 Labs: wbc 18.3, Sodiium 168, 167; Chloride 126, BUN 167, Creatinine 6.01, Lactic Acid 7.2, Total bilirubin 7.4 Ammonia 86, 03/13 01:55 Vital signs: 74/52 89 14 94.5 98 % RA Current BMI: 23.1 Insufficient energy intake: Yes Weight Loss: Yes Treatment: Nepro via NG tube @48ml/hr Dietary Consult: Yes Water flush 200 ml q6 hrs Monitor tube feedings Lab monitoring per orders In your professional opinion, can you please clarify if these findings signify one of the following conditions? Mild Protein-Calorie Malnutrition Moderate Protein-Calorie Malnutrition Severe Protein-Calorie Malnutrition Other condition, please specify Unable to determine (Last Revision: December 2018) Severe Protein-Calorie Malnutrition MTDD
--- NOTE | 2020-03-14 14:56 | CDI ---
Documentation Clarification Form Date: 03/14/2020 02:25:18 PM From: Sofía Trujillo RN, CCDS Admit Date: 03/13/2020 03:59:00 AM Patient Name: Ritchie Rosales Visit Number: [id number] Discharge Date: ATTENTION: The Clinical Documentation Specialists (CDI) and [facility] Coding Staff appreciate your assistance in clarifying documentation. Please respond to the clarification below the line at the bottom and electronically sign. The CDI & [facility] Coding staff will review the response and follow-up if needed. Please note: Queries are made part of the Legal Health Record. If you have any questions, please contact the author of this message via ITS. Dr. Denny Moreno Conflicting documentation has been found in the medical records. Please provide your clinical opinion and the most appropriate diagnosis of the patient condition and if present on admission A pressure ulcer left heel stage 2 was documented in the ED clinical impression on 03/13 03/12 07:00 Nursing wound assessment: Left heel pressure injury stage IV, 03/13 07:00 Left heel pressure injury stage III 03/13 Dietary consult: Stage IV left heel pressure ulcer History/Risk Factors: Coronary artery disease, Diabetes Mellitus, Liver Disease, Renal failure Clinical Indicators: 79-year-old male who present to ED on 03/13 from [facility] with documentation of him not eating and was severely dehydrated with dry mucous membranes with cracking of the tongue noted per ED assessment. Location: Left Heel Wound description: left heel warm, erythema Treatment: Turn q 2 hrs, Checks Hourly Specialty Bed Pillow elevating heels, heel protector boots Elements for accurate and compliant documentation of an ulcer: *The location/laterality of the ulcer *Etiology (decubitus/pressure, diabetic, PVD) *Stage I-IV, Unstageable, Suspected Deep Tissue Injury (To the deepest stage) *If the ulcer was present at admission (POA) or occurred after admission In your professional opinion, can you please clarify the diagnosis, location, laterality and whether present on admission (POA): Stage 1 Pressure/Decubitus Ulcer (intact skin, non-blanching redness of local area) Stage 2 Pressure/Decubitus Ulcer (Partial thickness, loss of dermis, pink wound bed) Stage 3 Pressure/Decubitus Ulcer (Full thickness tissue loss) Stage 4 Pressure/Decubitus Ulcer (Full thickness tissue loss with exposed bone, tendon, or muscle. May have slough or eschar present) Unstageable Other condition, please specify Unable to determine Please indicate etiology of pressure ulcer (if known). (Last Revision: March 2017) MTDD
[2020-03-14 16:34] LABS: Glucose,Whole Blood 210 mg/dL (75-99)
[2020-03-14 21:04] LABS: Calcium 8.7 mg/dL (8.4-10.2)
[2020-03-14 21:06] LABS: Glucose,Whole Blood 184 mg/dL (75-99)
[2020-03-14] MEDS ORDERED: AMIODARONE 360 MG in DEXTROSE 5% IN WATER 200 ML IV ONE ×2 (21:21)
[2020-03-14] MEDS ORDERED: DEXTROSE 5% IN WATER 100 ML with AMIODARONE 150 MG IV ONE (21:21)
--- NOTE | 2020-03-15 00:12 | P.CONS ---
History of Present Illness - Reason for Consult Consult date: 03/14/20 MSSA bacteremia Requesting physician: Denny Moreno - Chief Complaint Mental status changes x one day - History of Present Illness Patient is 79 year male with a past medical history significant for dementia in this patient who is a skilled nursing resident and the patient has been brought into the ER at [facility] yesterday for evaluation of mental status changes and hypotension, but the caregiver at the skilled nursing the patient usually alert and oriented to person and place however today he become nonverbal and didn't seem like himself with these symptoms the patient was brought into the ER , on arrival to the ER the patient was hypothermic tachycardic and hypotensive requiring fluid boluses and pressor support patient has been admitted to the ICU patient also have elevated white count of 18,000 had repeat is up to 21,000 she did have elevated lactic acid and did have elevated creatinine patient has been treated with vancomycin however the blood cultures subsequently grew MSSA antibiotic has been switched over to cefazolin and infectious disease was consulted for further management of antibiotic therapy, most of the information has been obtained from review the chart as well as talking to nursing staff as the patient was unable to afford any history, workup so far including chest x-ray negative for pneumonia UA has been negative abdominal ultrasound was negative for any hydronephrosis, liver ultrasound of gallbladder sludge no evidence of wall thickening or pericholecystic fluid Review of Systems Positive points has been mentioned in HPI complete review could not be obtained because of his underlying mental status Past Medical History Past Medical History: Coronary Artery Disease (CAD), COPD, Diabetes Mellitus, GERD/Reflux, Hyperlipidemia, Liver Disease Additional Past Medical History / Comment(s): history of pancreatitis, Right hip fracture, Right femoral neck fracture, Diabetes mellitus, Thrombocytopenia, CAD, COPD, GERD, dyslipidemia History of Any Multi-Drug Resistant Organisms: None Reported Past Surgical History: Orthopedic Surgery Additional Past Surgical History / Comment(s): Left knee arthroplasty, Left hip replacement Past Anesthesia/Blood Transfusion Reactions: No Reported Reaction Past Psychological History: No Psychological Hx Reported Smoking Status: Never smoker Past Alcohol Use History: None Reported Past Drug Use History: None Reported - Past Family History family Family Medical History: Unable to Obtain Medications and Allergies Home Medications Medication Instructions Recorded Confirmed Type Acetaminophen Tab [Tylenol] 500 mg PO Q6HR PRN 02/29/20 03/13/20 History Furosemide [Lasix] 80 mg PO DAILY 02/29/20 03/13/20 History Lactulose 20 gm PO BID@0900,2100 02/29/20 03/13/20 History Melatonin 5 mg PO HS PRN 02/29/20 03/13/20 History Multivitamins, Thera [Multivitamin 1 tab PO DAILY@0900 02/29/20 03/13/20 History (formulary)] Nitroglycerin Sl Tabs [Nitrostat] 0.4 mg SUBLINGUAL Q5M PRN 02/29/20 03/13/20 History Prostat 30 ml PO DAILY 02/29/20 03/13/20 History Spironolactone 25 mg PO DAILY@0900 02/29/20 03/13/20 History Tamsulosin [Flomax] 0.4 mg PO DAILY 02/29/20 03/13/20 History Venlafaxine HCl [Effexor XR] 150 mg PO DAILY@0900 02/29/20 03/13/20 History metFORMIN HCL [Glucophage] 500 mg PO BID@0900,1700 02/29/20 03/13/20 History Gabapentin [Neurontin] 400 mg PO TID@0800,1400,2200 #9 cap 03/03/20 03/13/20 Rx Allergies Allergy/AdvReac Type Severity Reaction Status Date / Time Nnvutzw-Yil-Dpw Reductase Allergy Unknown Verified 03/13/20 08:27 Inhibitor Physical Exam Vitals: Vital Signs Temp Pulse Resp BP Pulse Ox 03/14/20 23:00 126 H 22 116/66 93 L 03/14/20 22:30 112 H 24 122/69 95 03/14/20 22:00 130 H 22 96/73 95 03/14/20 21:30 111 H 24 112/67 95 03/14/20 21:00 118 H 21 95/70 96 03/14/20 20:00 97.7 F 117 H 24 119/61 96 03/14/20 19:00 126 H 22 110/63 96 03/14/20 18:00 115 H 29 H 100/71 96 03/14/20 17:00 125 H 29 H 117/66 94 L 03/14/20 16:00 98.1 F 114 H 29 H 109/66 95 03/14/20 15:00 120 H 29 H 112/49 96 03/14/20 14:00 120 H 28 H 109/64 95 03/14/20 13:00 113 H 29 H 100/47 96 03/14/20 12:00 98.2 F 116 H 28 H 96/65 94 L 03/14/20 11:00 116 H 28 H 96/63 94 L 03/14/20 10:00 111 H 22 105/61 97 03/14/20 09:00 112 H 27 H 100/74 97 03/14/20 08:00 97.8 F 112 H 27 H 99/61 97 03/14/20 07:00 110 H 28 H 80/52 94 L 03/14/20 06:00 107 H 26 H 83/50 97 03/14/20 05:00 107 H 22 104/67 97 03/14/20 04:00 96.7 F L 106 H 23 105/67 97 03/14/20 03:50 98 03/14/20 03:00 107 H 22 109/65 89 L 03/14/20 02:00 101 H 23 92/61 94 L 03/14/20 01:00 102 H 23 94/57 96 03/14/20 00:43 102 H 22 99/61 95 Intake and Output 03/14/20 03/14/20 03/15/20 14:59 22:59 06:59 Intake Total 6073.789 3828 Output Total 125 220 Balance 7710.151 2633 Intake: IV 1200 1350 Dextrose 5% in Water 1, 900 1350 000 ml @ 100 mls/hr IV . Q11H MAX with Sodium Bicarb (1 Meq/ml) 100 ml Rx#:[id number] Sodium Chloride 0.45% 1, 300 000 ml @ 100 mls/hr IV . Q10H MAX Rx#:[id number] Intake, IV Titration 239.116 254 Amount Norepinephrine 4 mg In 239.116 254 Sodium Chloride 0.9% 250 ml @ 0.05 MCG/KG/MIN 16. 85 mls/hr IV .Q15H5M MAX Rx#:[id number] Tube Feeding 20 Other 300 Output: Urine 125 220 Other: Voiding Method Indwelling Catheter Indwelling Catheter Weight 75.1 kg GENERAL DESCRIPTION: An elderly male lying in bed, no distress. No tachypnea or accessory muscle of respiration use. HEENT: Shows Pallor , no scleral icterus. Oral mucous membrane is dry. No pharyngeal erythema or thrush NECK: Trachea central, no thyromegaly. LUNGS: Unlabored breathing. Decreased pulses in the base. No wheeze or crackle. HEART: S1, S2, regular rate and rhythm. No loud murmur ABDOMEN: Soft, no tenderness , guarding or rigidity, no organomegaly EXTREMITIES: No edema of feet. Left heel stage II pressure ulcer but no cellulitis SKIN: No rash, no masses palpable. NEUROLOGICAL: The patient is lethargic orientation could not be determined Results CBC & Chem 7: 03/14/20 03:12 03/14/20 20:22 Labs: Abnormal Lab Results - Last 24 Hours (Table) 03/14/20 03/14/20 03/14/20 Range/Units 00:33 03:12 03:12 WBC 21.3 H (3.8-10.6) k/uL RBC 4.13 L (4.30-5.90) m/uL MCV 105.5 H (80.0-100.0) fL MCHC 30.9 L (31.0-37.0) g/dL RDW 16.7 H (11.5-15.5) % Neutrophils # 16.7 H (1.3-7.7) k/uL Monocytes # 1.5 H (0-1.0) k/uL Sodium 156 H (137-145) mmol/L Chloride 125 H (98-107) mmol/L Carbon Dioxide 15 L (22-30) mmol/L BUN 165 H* (9-20) mg/dL Creatinine 5.45 H (0.66-1.25) mg/dL Glucose 157 H (74-99) mg/dL POC Glucose (mg/dL) 131 H (75-99) mg/dL Plasma Lactic Acid Adithya (0.7-2.0) mmol/L Magnesium 2.6 H (1.6-2.3) mg/dL Total Bilirubin 7.7 H (0.2-1.3) mg/dL Alkaline Phosphatase 157 H (38-126) U/L Ammonia (<30) umol/L Total Protein 6.2 L (6.3-8.2) g/dL Albumin 2.7 L (3.5-5.0) g/dL 03/14/20 03/14/20 03/14/20 Range/Units 03:12 03:12 04:14 WBC (3.8-10.6) k/uL RBC (4.30-5.90) m/uL MCV (80.0-100.0) fL MCHC (31.0-37.0) g/dL RDW (11.5-15.5) % Neutrophils # (1.3-7.7) k/uL Monocytes # (0-1.0) k/uL Sodium (137-145) mmol/L Chloride (98-107) mmol/L Carbon Dioxide (22-30) mmol/L BUN (9-20) mg/dL Creatinine (0.66-1.25) mg/dL Glucose (74-99) mg/dL POC Glucose (mg/dL) 147 H (75-99) mg/dL Plasma Lactic Acid Adithya 4.4 H* (0.7-2.0) mmol/L Magnesium (1.6-2.3) mg/dL Total Bilirubin (0.2-1.3) mg/dL Alkaline Phosphatase (38-126) U/L Ammonia 159 H (<30) umol/L Total Protein (6.3-8.2) g/dL Albumin (3.5-5.0) g/dL 03/14/20 03/14/20 03/14/20 Range/Units 06:02 06:13 07:55 WBC (3.8-10.6) k/uL RBC (4.30-5.90) m/uL MCV (80.0-100.0) fL MCHC (31.0-37.0) g/dL RDW (11.5-15.5) % Neutrophils # (1.3-7.7) k/uL Monocytes # (0-1.0) k/uL Sodium (137-145) mmol/L Chloride (98-107) mmol/L Carbon Dioxide (22-30) mmol/L BUN (9-20) mg/dL Creatinine (0.66-1.25) mg/dL Glucose (74-99) mg/dL POC Glucose (mg/dL) 175 H 139 H (75-99) mg/dL Plasma Lactic Acid Adithya 5.6 H* (0.7-2.0) mmol/L Magnesium (1.6-2.3) mg/dL Total Bilirubin (0.2-1.3) mg/dL Alkaline Phosphatase (38-126) U/L Ammonia (<30) umol/L Total Protein (6.3-8.2) g/dL Albumin (3.5-5.0) g/dL 03/14/20 03/14/20 03/14/20 Range/Units 09:10 12:05 12:05 WBC (3.8-10.6) k/uL RBC (4.30-5.90) m/uL MCV (80.0-100.0) fL MCHC (31.0-37.0) g/dL RDW (11.5-15.5) % Neutrophils # (1.3-7.7) k/uL Monocytes # (0-1.0) k/uL Sodium 157 H (137-145) mmol/L Chloride 124 H (98-107) mmol/L Carbon Dioxide 13 L (22-30) mmol/L BUN 167 H* (9-20) mg/dL Creatinine 5.63 H (0.66-1.25) mg/dL Glucose 151 H (74-99) mg/dL POC Glucose (mg/dL) (75-99) mg/dL Plasma Lactic Acid Adithya 6.1 H* 6.9 H* (0.7-2.0) mmol/L Magnesium (1.6-2.3) mg/dL Total Bilirubin (0.2-1.3) mg/dL Alkaline Phosphatase (38-126) U/L Ammonia (<30) umol/L Total Protein (6.3-8.2) g/dL Albumin (3.5-5.0) g/dL 03/14/20 03/14/20 03/14/20 Range/Units 12:11 16:33 20:22 WBC (3.8-10.6) k/uL RBC (4.30-5.90) m/uL MCV (80.0-100.0) fL MCHC (31.0-37.0) g/dL RDW (11.5-15.5) % Neutrophils # (1.3-7.7) k/uL Monocytes # (0-1.0) k/uL Sodium (137-145) mmol/L Chloride (98-107) mmol/L Carbon Dioxide (22-30) mmol/L BUN (9-20) mg/dL Creatinine (0.66-1.25) mg/dL Glucose (74-99) mg/dL POC Glucose (mg/dL) 138 H 210 H (75-99) mg/dL Plasma Lactic Acid Adithya 7.9 H* (0.7-2.0) mmol/L Magnesium (1.6-2.3) mg/dL Total Bilirubin (0.2-1.3) mg/dL Alkaline Phosphatase (38-126) U/L Ammonia (<30) umol/L Total Protein (6.3-8.2) g/dL Albumin (3.5-5.0) g/dL 03/14/20 03/14/20 03/14/20 Range/Units 20:22 21:04 23:39 WBC (3.8-10.6) k/uL RBC (4.30-5.90) m/uL MCV (80.0-100.0) fL MCHC (31.0-37.0) g/dL RDW (11.5-15.5) % Neutrophils # (1.3-7.7) k/uL Monocytes # (0-1.0) k/uL Sodium 151 H (137-145) mmol/L Chloride 122 H (98-107) mmol/L Carbon Dioxide 11 L (22-30) mmol/L BUN (9-20) mg/dL Creatinine 5.37 H (0.66-1.25) mg/dL Glucose 202 H (74-99) mg/dL POC Glucose (mg/dL) 184 H (75-99) mg/dL Plasma Lactic Acid Adithya 8.3 H* (0.7-2.0) mmol/L Magnesium (1.6-2.3) mg/dL Total Bilirubin (0.2-1.3) mg/dL Alkaline Phosphatase (38-126) U/L Ammonia (<30) umol/L Total Protein (6.3-8.2) g/dL Albumin (3.5-5.0) g/dL Microbiology - Last 24 Hours (Table) 03/13/20 03:00 Blood Culture Gram Stain - Preliminary Blood Blood Culture - Preliminary Staphylococcus aureus 03/13/20 02:23 Blood Culture - Preliminary Blood No Growth after 24 hours Assessment and Plan Assessment: 1- patient presented to hospital with sepsis/septic shock in this patient who did have a significant hypothermia hypotension tachycardia and elevated white count now with evidence of MSSA bacteremia in this patient workup so for including a chest x-ray negative UA has been negative ultrasound of the liver and the kidneys has been negative, patient did have a small wound to the left heel which doesn't look infected and no other open wounds or cellulitis and no joint swelling (1) Septic shock Current Visit: Yes Status: Acute Code(s): A41.9 - SEPSIS, UNSPECIFIED ORGANISM; R65.21 - SEVERE SEPSIS WITH SEPTIC SHOCK SNOMED Code(s): 37575088 (2) MSSA bacteremia Current Visit: Yes Status: Acute Code(s): R78.81 - BACTEREMIA; B95.61 - METHICILLIN SUSCEP STAPH INFCT CAUSING DIS CLASSD [id number] SNOMED Code(s): 891495614 (3) Pressure ulcer of left heel, stage 2 Current Visit: Yes Status: Acute Code(s): L89.622 - PRESSURE ULCER OF LEFT HEEL, STAGE 2 SNOMED Code(s): 454221388 Plan: 1- blood cultures will be repeated to document clearance of bacteremia 2-check echocardiogram 3-if echo negative and the patient condition stabilized to check a CT of abdominal pelvis 4-cefazolin 1 g every 12 hours and was adjusted to the kidney function We will follow on clinical condition and cultures to further adjust medication if needed Thank you for this consultation will follow this patient with you Time with Patient: Greater than 30
[2020-03-15 00:34] LABS: Glucose,Whole Blood 267 mg/dL (75-99)
[2020-03-15] MEDS: NOREPINEPHRINE 4 MG in SODIUM CHLORIDE 0.9% 250 ML IV SCH ×3 (02:45→12:18)
[2020-03-15] MEDS: DEXTROSE 5% IN WATER 1,000 ML with SODIUM BICARB (1 MEQ/ML) 100 ML IV SCH ×2 (02:45→12:19)
[2020-03-15] MEDS: AMIODARONE 300 MG in DEXTROSE 5% IN WATER 250 ML IV SCH ×4 (03:23→15:58)
[2020-03-15 03:50] LABS: Anisocytosis Slight; HCT 40.6 % (39.0-53.0); HGB 12.5 gm/dL (13.0-17.5); Hypochromasia Moderate; MCHC 30.8 g/dL (31.0-37.0); MCV 104.1 fL (80.0-100.0); Macrocytosis Moderate; Mean Platelet Volume 9.9; RDW 17.3 % (11.5-15.5); WBC 17.6 k/uL (3.8-10.6)
[2020-03-15 03:56] LABS: INR 1.8 (<1.2); Prothrombin Time 17.7 sec (9.0-12.0)
[2020-03-15 03:59] LABS: Calcium 8.2 mg/dL (8.4-10.2); Potassium 3.5 mmol/L (3.5-5.1)
[2020-03-15 04:04] LABS: Vancomycin,Random 7.2 ug/mL
[2020-03-15 04:22] LABS: Band Neutrophils % 5 %; Lymphocytes # (M) 2.11 k/uL (1.0-4.8); Monocytes # (M) 0.53 k/uL (0-1.0); Neutrophils % (M) 80 %; Nucleated Red Blood Cells 0 /100 WBC (0-0); Platelet Count 97 k/uL (150-450); Total Cells Counted 100
[2020-03-15 05:01] LABS: ABG Base Excess -6.4 mmol/L; ABG HCO3 18 mmol/L (21-25); ABG Oxygen Saturation 90.2 % (94-97); ABG PCO2 27 mmHg (35-45); ABG PH 7.43 (7.35-7.45); ABG PO2 65 mmHg (83-108); ABG TCO2 19 mmol/L (19-24); Allen Test Performed? Yes
[2020-03-15 05:33] LABS: Glucose,Whole Blood 204 mg/dL (75-99)
--- NOTE | 2020-03-15 05:34 | XR ---
EXAMINATION TYPE: XR chest 1V portable DATE OF EXAM: 03/15/2020 COMPARISON: Yesterday HISTORY: Short of breath TECHNIQUE: Single view FINDINGS: Heart is normal. There is some mild infiltrate at the left lung base. The right lung is clear. There is no heart failu re. There is nasogastric tube in the stomach. There are chest leads. IMPRESSION: There is some infiltrate left lung base that is the same or slightly worse than yesterday . No heart failure.
[2020-03-15] MEDS: INSULIN ASPART (NovoLOG) 100 UNIT/ML VIAL SQ SCH ×2 (05:55→12:25)
[2020-03-15] MEDS ORDERED: PIPERACILLIN-TAZOBACTAM 3.375 GM in SODIUM CHLORIDE 0.9% 100 ML IVPB SCH ×2 (08:00→09:00)
[2020-03-15] MEDS: RIFAXIMIN 550 MG TABLET PO SCH (08:30)
[2020-03-15] MEDS: HEPARIN SODIUM,PORCINE 5,000 UNIT/ML 1 ML VIAL SQ SCH (08:30)
[2020-03-15] MEDS: POTASSIUM BICARBONATE/CIT AC 20 MEQ TABLET.EFF NG-TUBE SCH ×2 (08:31→08:32)
[2020-03-15] MEDS ORDERED: LORazepam 2 MG/ML INJ IV PRN (08:52)
[2020-03-15] MEDS ORDERED: LORazepam 2 MG/ML INJ IV STA (08:54)
[2020-03-15] MEDS ORDERED: PANTOPRAZOLE 40 MG/10 ML VIAL IVP SCH (09:00)
[2020-03-15] MEDS ORDERED: LACTULOSE 20 GM/30 ML CUP PO SCH ×2 (09:00)
[2020-03-15 09:40] LABS: Albumin 2.2 g/dL (3.5-5.0); Total Bilirubin 6.5 mg/dL (0.2-1.3); Total Protein 5.2 g/dL (6.3-8.2)
[2020-03-15] MEDS ORDERED: levETIRAcetam IV 500 MG in SODIUM CHLORIDE 0.9% 100 ML IVPB SCH ×2 (10:00→15:39)
--- NOTE | 2020-03-15 10:02 | P.PN ---
Subjective Patient is seen in follow-up for acute kidney injury and hypernatremia. Sodium level 147 this morning. went into A. fib yesterday and is maintained on amiodarone drip. Remains on Levophed. Maintained on D5 with 2 A of bicarbonate at 1 50 mL an hour. Now also receiving tube feeding and free water flushes at a rate of 300 mL every 4 hours. urine output 30-50 mL an hour. Had a seizure this morning. Vital signs are stable. on Levophed. General: The patient appeared well nourished and normally developed. NG tube noted. HEENT: Head exam is unremarkable. Neck is without jugular venous distension. LUNGS: Breath sounds decreased. HEART: Rate and Rhythm are regular. ABDOMEN: Soft, nontender. EXTREMITITES: No clubbing, cyanosis, or edema. Objective - Vital Signs Vital signs: Vital Signs Temp 98.1 F 03/15/20 08:00 Pulse 122 H 03/15/20 08:00 Resp 35 H 03/15/20 08:00 BP 103/59 03/15/20 08:00 Pulse Ox 94 L 03/15/20 08:00 Intake & Output 03/14/20 03/15/20 03/15/20 18:59 06:59 18:59 Intake Total 2763.116 2717.892 180 Output Total 225 410 32 Balance 2538.116 2307.892 148 Weight 75.1 kg 73.5 kg Intake: IV 1950 1800 150 Dextrose 5% in Water 1, 1650 1800 150 000 ml @ 100 mls/hr IV . Q11H MAX with Sodium Bicarb (1 Meq/ml) 100 ml Rx#:[id number] Sodium Chloride 0.45% 1, 300 000 ml @ 100 mls/hr IV . Q10H MAX Rx#:[id number] Intake, IV Titration 493.116 427.892 Amount Norepinephrine 4 mg In 493.116 427.892 Sodium Chloride 0.9% 250 ml @ 0.05 MCG/KG/MIN 16. 85 mls/hr IV .Q15H5M MAX Rx#:[id number] Tube Feeding 20 190 30 Other 300 300 Output: Urine 225 410 32 Other: Voiding Method Indwelling Catheter Indwelling Catheter Indwelling Catheter - Labs CBC & Chem 7: 03/15/20 03:36 03/15/20 03:36 Labs: Abnormal Lab Results - Last 24 Hours (Table) 03/14/20 03/14/20 03/14/20 Range/Units 12:05 12:05 12:11 WBC (3.8-10.6) k/uL RBC (4.30-5.90) m/uL Hgb (13.0-17.5) gm/dL MCV (80.0-100.0) fL MCHC (31.0-37.0) g/dL RDW (11.5-15.5) % Plt Count (150-450) k/uL Neutrophils # (Manual) (1.3-7.7) k/uL PT (9.0-12.0) sec INR (<1.2) ABG pCO2 (35-45) mmHg ABG pO2 (83-108) mmHg ABG HCO3 (21-25) mmol/L ABG O2 Saturation (94-97) % Sodium 157 H (137-145) mmol/L Chloride 124 H (98-107) mmol/L Carbon Dioxide 13 L (22-30) mmol/L BUN 167 H* (9-20) mg/dL Creatinine 5.63 H (0.66-1.25) mg/dL Glucose 151 H (74-99) mg/dL POC Glucose (mg/dL) 138 H (75-99) mg/dL Plasma Lactic Acid Adithya 6.9 H* (0.7-2.0) mmol/L Calcium (8.4-10.2) mg/dL Ammonia (<30) umol/L 03/14/20 03/14/20 03/14/20 Range/Units 16:33 20:22 20:22 WBC (3.8-10.6) k/uL RBC (4.30-5.90) m/uL Hgb (13.0-17.5) gm/dL MCV (80.0-100.0) fL MCHC (31.0-37.0) g/dL RDW (11.5-15.5) % Plt Count (150-450) k/uL Neutrophils # (Manual) (1.3-7.7) k/uL PT (9.0-12.0) sec INR (<1.2) ABG pCO2 (35-45) mmHg ABG pO2 (83-108) mmHg ABG HCO3 (21-25) mmol/L ABG O2 Saturation (94-97) % Sodium 151 H (137-145) mmol/L Chloride 122 H (98-107) mmol/L Carbon Dioxide 11 L (22-30) mmol/L BUN (9-20) mg/dL Creatinine 5.37 H (0.66-1.25) mg/dL Glucose 202 H (74-99) mg/dL POC Glucose (mg/dL) 210 H (75-99) mg/dL Plasma Lactic Acid Adithya 7.9 H* (0.7-2.0) mmol/L Calcium (8.4-10.2) mg/dL Ammonia (<30) umol/L 03/14/20 03/14/20 03/15/20 Range/Units 21:04 23:39 00:33 WBC (3.8-10.6) k/uL RBC (4.30-5.90) m/uL Hgb (13.0-17.5) gm/dL MCV (80.0-100.0) fL MCHC (31.0-37.0) g/dL RDW (11.5-15.5) % Plt Count (150-450) k/uL Neutrophils # (Manual) (1.3-7.7) k/uL PT (9.0-12.0) sec INR (<1.2) ABG pCO2 (35-45) mmHg ABG pO2 (83-108) mmHg ABG HCO3 (21-25) mmol/L ABG O2 Saturation (94-97) % Sodium (137-145) mmol/L Chloride (98-107) mmol/L Carbon Dioxide (22-30) mmol/L BUN (9-20) mg/dL Creatinine (0.66-1.25) mg/dL Glucose (74-99) mg/dL POC Glucose (mg/dL) 184 H 267 H (75-99) mg/dL Plasma Lactic Acid Adithya 8.3 H* (0.7-2.0) mmol/L Calcium (8.4-10.2) mg/dL Ammonia (<30) umol/L 03/15/20 03/15/20 03/15/20 Range/Units 03:36 03:36 03:36 WBC 17.6 H (3.8-10.6) k/uL RBC 3.90 L (4.30-5.90) m/uL Hgb 12.5 L (13.0-17.5) gm/dL MCV 104.1 H (80.0-100.0) fL MCHC 30.8 L (31.0-37.0) g/dL RDW 17.3 H (11.5-15.5) % Plt Count 97 L D (150-450) k/uL Neutrophils # (Manual) 14.90 H (1.3-7.7) k/uL PT (9.0-12.0) sec INR (<1.2) ABG pCO2 (35-45) mmHg ABG pO2 (83-108) mmHg ABG HCO3 (21-25) mmol/L ABG O2 Saturation (94-97) % Sodium 147 H (137-145) mmol/L Chloride 112 H (98-107) mmol/L Carbon Dioxide 15 L (22-30) mmol/L BUN 161 H* (9-20) mg/dL Creatinine 4.97 H (0.66-1.25) mg/dL Glucose 285 H (74-99) mg/dL POC Glucose (mg/dL) (75-99) mg/dL Plasma Lactic Acid Adithya (0.7-2.0) mmol/L Calcium 8.2 L (8.4-10.2) mg/dL Ammonia 209 H (<30) umol/L 03/15/20 03/15/20 03/15/20 Range/Units 03:36 03:36 04:56 WBC (3.8-10.6) k/uL RBC (4.30-5.90) m/uL Hgb (13.0-17.5) gm/dL MCV (80.0-100.0) fL MCHC (31.0-37.0) g/dL RDW (11.5-15.5) % Plt Count (150-450) k/uL Neutrophils # (Manual) (1.3-7.7) k/uL PT 17.7 H (9.0-12.0) sec INR 1.8 H (<1.2) ABG pCO2 27 L (35-45) mmHg ABG pO2 65 L (83-108) mmHg ABG HCO3 18 L (21-25) mmol/L ABG O2 Saturation 90.2 L (94-97) % Sodium (137-145) mmol/L Chloride (98-107) mmol/L Carbon Dioxide (22-30) mmol/L BUN (9-20) mg/dL Creatinine (0.66-1.25) mg/dL Glucose (74-99) mg/dL POC Glucose (mg/dL) (75-99) mg/dL Plasma Lactic Acid Adithya 8.1 H* (0.7-2.0) mmol/L Calcium (8.4-10.2) mg/dL Ammonia (<30) umol/L 03/15/20 03/15/20 Range/Units 05:30 06:50 WBC (3.8-10.6) k/uL RBC (4.30-5.90) m/uL Hgb (13.0-17.5) gm/dL MCV (80.0-100.0) fL MCHC (31.0-37.0) g/dL RDW (11.5-15.5) % Plt Count (150-450) k/uL Neutrophils # (Manual) (1.3-7.7) k/uL PT (9.0-12.0) sec INR (<1.2) ABG pCO2 (35-45) mmHg ABG pO2 (83-108) mmHg ABG HCO3 (21-25) mmol/L ABG O2 Saturation (94-97) % Sodium (137-145) mmol/L Chloride (98-107) mmol/L Carbon Dioxide (22-30) mmol/L BUN (9-20) mg/dL Creatinine (0.66-1.25) mg/dL Glucose (74-99) mg/dL POC Glucose (mg/dL) 204 H (75-99) mg/dL Plasma Lactic Acid Adithya 7.0 H* (0.7-2.0) mmol/L Calcium (8.4-10.2) mg/dL Ammonia (<30) umol/L Microbiology - Last 24 Hours (Table) 03/13/20 02:23 Blood Culture - Preliminary Blood No Growth after 48 hours 03/13/20 03:00 Blood Culture Gram Stain - Preliminary Blood Blood Culture - Preliminary Staphylococcus aureus Assessment and Plan Plan: assessment: 1. Acute kidney injury secondary to ATN secondary to severe intravascular volume depletion and hypotension. Creatinine 6.01 on admission and is 4.97 today. BUN remains elevated. no evidence of GI bleed. not on steroids. Baseline creatinine near 1 from 03/02/2020. UA benign. No evidence of hydronephrosis noted on kidney ultrasound. 2. Severe hypernatremia secondary to lack of oral water intake - water deficit 7.4 L. improving. 3. Metabolic acidosis secondary to acute kidney injury, lactic acidosis and IV fluids. he was also on metformin outpatient. improving. 4. Septic shock secondary to MSSA bacteremia maintained on Levophed. 5. Staph aureus bacteremia maintained on antibiotics. 6. Altered mental status secondary to hepatic encephalopathy. Also concern for uremia. 7. Hypokalemia from poor intake. 8. A. fib with RVR maintained on amiodarone drip. plan: decreased rate of hypotonic bicarb drip to 100 mL an hour. Maintain tube feeding with free water flushes at 300 mL every 4 hours. Avoid nephrotoxins. add oral solute bicarbonate. Potassium being replaced. Wean vasopressors. Continue to monitor renal function and urine output closely. overall prognosis guarded. Consider comfort measures. Will consider renal replacement therapy depending on son's wishes.
--- NOTE | 2020-03-15 10:20 | CDI ---
Documentation Clarification Form Date: 03/15/2020 09:01:00 AM From: Sofía Trujillo RN, CCDS Admit Date: 03/13/2020 03:59:00 AM Patient Name: Ritchie Rosales Visit Number: [id number] Discharge Date: ATTENTION: The Clinical Documentation Specialists (CDI) and [facility] Coding Staff appreciate your assistance in clarifying documentation. Please respond to the clarification below the line at the bottom and electronically sign. The CDI & [facility] Coding staff will review the response and follow-up if needed. Please note: Queries are made part of the Legal Health Record. If you have any questions, please contact the author of this message via ITS. Dr. Jeana Rodriguez 03/14 at 03:00 oxygen saturations was documented at 89 % on O2 flow rate of 12 (High Flow), respiratory rate 22, pulse rate 107. 03/15 at 08:00 his is 94 % O2 flow rate 8, respiratory rate 35, pulse rate 122 blood pressure 103/59. Please provide a clinical diagnosis for the monitoring and treatment provided. History/Risk Factors: Coronary artery disease, Diabetes Mellitus, Liver Disease, Renal failure Clinical Indicators: 79-year-old male who present to ED on 03/13 from [facility] with altered mental status and unresponsiveness. He had severe hypernatremia secondary to dehydration, acute kidney injury and was ruled in for severe sepsis with septic shock. 03/14 Pulmonary progress note: Lungs were clear to auscultation and percussion, and with normal diaphragmatic excursion. No wheezes or rales noted. 03/15 Chest x-ray: There is some infiltrate left lung base that is the same or slightly worse than yesterday. No heart failure 03/15 Vital signs: 103/59 122 35 98.1 03/15 08:00 Pulse oximetry:94 % High Flow, O2 flow rate 8 03/15 03:59 Labs: WBC 17.6 PLT Count 97, Na+ 147, Chloride 112, Carbon Dioxide 15 BUN 161, CR 4.97 Lactic acid 8.1 10:59 ABG/CBG: pH 7.43 pO2 65 pCO2 27 HCO3 18 O2 Saturation 90.2 Treatment: ICU Monitoring Monitor O2 saturation (titrate) Duoneb 0.5 mg qid prn Monitor sodium levels and renal function, ammonia level Amiodarone @25 mls/hr iv D5 with 2 A of bicardonate at 150 mls hr Levophed @16.85 mls/hr iv In your professional opinion, can you please clarify if these findings signify one of the following conditions? Acute Respiratory Failure Acute on Chronic Respiratory Failure Chronic Respiratory Failure Other Diagnosis, please specify Unable to determine Specificity: If known, further specify (if known): With hypercapnia? (pCO2 >50 and pH <7.35) With hypoxia? (pO2 <60 mm Hg or SpO2 <91% on room air) (Last Query Form Revision: February 2019) Acute on Chronic Respiratory Failure MTDD
--- NOTE | 2020-03-15 12:14 | P.PN ---
Subjective Progress Note Date: 03/15/20 79-year-old male patient, multiple comorbidities, history of coronary artery disease, diabetes mellitus, hyperlipidemia and previous history of falls with fractures of the hip was in the hospital approximately 10 days ago and the [facility]. Based on the discharge summary from 03/03/2020, the patient had a fall and x-rays of the hip showed a acute displaced right femoral neck fracture. The patient was admitted for further management and he was seen by orthopedic surgery. The patient did not have surgery. He received pain management. The patient was asked to bear some weight as tolerated. Orthopedic surgery recommended conservative management. The patient back then and appears to have some poor baseline performance and functional status. He was not oriented to time and place at all times. At other times he was found to be more alert. He was not ambulating. He was seen by Dr. Rai and his recommendations was that this appears to be a chronic versus subacute fracture. Note that the patient has already had a previous left hip fracture with intramedullary nailing. It was recommended to proceed with conservative management at that point in time. Note that after the patient was released to [facility], his condition was progressively getting worse. He was not eating. He came in to the ED yesterday severely dehydrated. Based on available information, the patient was quite lethargic and was not responding to verbal stimulation. His sodium level was 168. He received a total of 2 L of normal saline and he was switched to half-normal saline and his urine output was in the order of 5-10 mL an hour. He was taking metformin, L asix, Aldactone was also taken lactulose for presumptive liver disease and there is a questionable history of alcoholism. He did not require any pressors. I saw the patient in the ICU this morning. He was still dry despite taking all this fluids. I gave her another bolus of IV fluids and I put him on a D5 water infusion today to 1 50 mL an hour. Note that the patient was in acute kidney injury. His creatinine was up to 6.01. The repeat electrolytes within 4 hours so that the sodium level was down to 167. The patient's creatinine was also down to 5.37. The anion gap was at 19. Serum bicarb was at 13. Glucose level was 129 and later on came up to 262. Lactic acid level was as high as 7.2 and dropped down to 3.6. His INR was at 2 with a PT of 19.3 and a PTT of 27.3. The UA was negative. AST and ALP were within normal limits. Alkaline phosphatase was 198. Ammonia level was 86. The white cell count of 18.3. The CAT scan of the brain is showing age-related atrophy otherwise negative. 03/14/2020 and seeing the patient for a follow-up. Since yesterday, the patient was being resuscitated with IV fluids. Initially was given D5 water and later on the patient was switched to half-normal saline at the rate of 150 mL an hour. The patient is also on pressors with norepinephrine infusion running at 0.09 g per KG per minute. There is been some interval improvement in his sodium level which is currently down to 154 and later on to 156. The patient continues to have an elevated BUN of 165. Creatinine is at 5.45. Lactic acid level is up to 6.1. Liver function tests are normal in regards to AST and ALP and alkaline phosphatase is at 157. The patient has a white cell count of 21.3. Coagulation profile was slightly abnormal with an INR of 2 with a PT of 19.3 and a PTT of 27.3. The TSH was within normal at 1.3. Albumin is 3.5 with a total protein of 7.3 from yesterday. UA was negative. Neurologically the patient is still the same as yesterday. Is quite obtunded and not following any commands. Based on his overall poor baseline performance and functional status and nutritional status, I recommended NG tube insertion today for enteral feeding and nutr itional support. Meanwhile, I've also recommended some free water supplements through the NG tube. In regards to his high ammonia level, this is probably related to malnourishment and catabolic state. There may be a component of chronic renal insufficiency. I will hold the lactulose fornow especially that the patientintravascular depleted and the patient will be given Xifaxan instead. The blood culture came back positive for staph aureus, likely MSSA and the patient will be covered with IV cefazolin. As for the IV fluids, there is a drop in a bicarb 15 resulting into mild anion gap metabolic acidosis. I switched IV fluids to D5 with 2 ampules of sodium bicarbonate 50 mEq running at 75 mL an hour. 03/15/2020, the patient is doing poorly. Earlier this morning, he was unresponsive and there has been significant changes in his condition overnight. Note that yesterday, I was able to establish an NG tube and the patient was started on enteral feeding for incision support and he was given Nepro. He was at the rate of 30 mL an hour which is at goal. At the same time, we kept the patient on a D5 with 2 ampules of 150 liquid so sodium bicarb treating his underlying intravascular volume depletion and metabolic acidosis. She wasn't was also being administered through the NG 300 mL every 4 hours. Note that his sodium level was gradually improving is down to 147. At the same time, the patient's BUN was 161 with a creatinine of 4.97. Nevertheless, he continued to be hypotensive. Infected hypotension gradually got worse and he was titrated to a levo fed of 0.18 mcg/kg per minute on today's evaluation. The lactic acid level was in the right and came up to 8.1. The patient also got worse in terms of his oxygenation and he was placed on high flow oxygen at 10 L per minute nasal cannula to maintain a saturation above 90%. He also went into atrial fibrillation with rapid ventricular response last night. He was quite tachycardic. The patientwas started on amiodarone which is still running at 0.5 mg 5 minutes. He is still encephalopathic. His platelet count is up to 97. He was given a total of 10 mg of vitamin K and he remains mildly coagulopathic with a PT of 17.7 and a INR of 1.8. His bilirubin is quite elevated at the level of 6.5 and his AST to 45 with an AST of 28 and alkaline phosphatase of 135. His serum ammonia is up to 209. Thyroid function tests have been essentially within normal limits. Chest x-ray from today shows mild infiltrate in left lung base and a right lung is essentially clear. No signs of any heart failure. NG tube is in the stomach. There is a likely the patient could've aspirated as the patient is having noisy breathing and the secretions are probably in his upper airway. Meanwhile, as our evaluation was being done, the patient was suspected to have episodic seizures. At around 8:30 AM, the patient went into full-blown tonic-clonic seizure. He was given immediately total of 4 mg of IV Ativan and he was started on Keppra. A neurologic consultation was requested in regards to this new onset seizure activity. His blood culture was positive for tumor MSSA and the patient was covered with IV Kefzol. Objective - Vital Signs Vital signs: Vital Signs Temp 98.1 F 03/15/20 08:00 Pulse 123 H 03/15/20 11:00 Resp 42 H 03/15/20 11:00 BP 107/60 03/15/20 11:00 Pulse Ox 95 03/15/20 11:00 Intake & Output 03/14/20 03/15/20 03/15/20 18:59 06:59 18:59 Intake Total 2763.116 2717.892 920 Output Total 225 410 82 Balance 2538.116 2307.892 838 Weight 75.1 kg 73.5 kg Intake: IV 1950 1800 500 Dextrose 5% in Water 1, 1650 1800 500 000 ml @ 100 mls/hr IV . Q11H MAX with Sodium Bicarb (1 Meq/ml) 100 ml Rx#:[id number] Sodium Chloride 0.45% 1, 300 000 ml @ 100 mls/hr IV . Q10H MAX Rx#:[id number] Intake, IV Titration 493.116 427.892 Amount Norepinephrine 4 mg In 493.116 427.892 Sodium Chloride 0.9% 250 ml @ 0.05 MCG/KG/MIN 16. 85 mls/hr IV .Q15H5M MAX Rx#:[id number] Tube Feeding 20 190 120 Other 300 300 300 Output: Urine 225 410 82 Other: Voiding Method Indwelling Catheter Indwelling Catheter Indwelling Catheter - Exam Gen. appearance the patient is lethargic, somnolent and sleepy, not responding to stimulation. The patient is quite cachectic and emaciated. He is BMI 27.2. He is calm and comfortable. No acute the patient has an NG tube in place for now. The position of the NG tube was confirmed by chest x-ray. On examination, the patient has jaundice Head exam was generally normal. There was has scleral icterus or corneal arcus. Mucous membranes remain dry although improved compared to yesterday. The patient is also pale. He has conjunctival icterus. Neck was supple and without jugular venous distension, thyromegaly, or carotid bruits. Carotids were easily palpable bilaterally. There was no adenopathy. Lungs were clear to auscultation and percussion, and with normal diaphragmatic excursion. No wheezes or rales were noted. The patient has some upper airway secretions Cardiac exam revealed the PMI to be normally situated and sized. The rhythm was regular and no extrasystoles were noted during several minutes of auscultation. The first and second heart sounds were normal and physiologic splitting of the second heart sound was noted. There were no murmurs, rubs, clicks, or gallops. Abdominal exam revealed normal bowel sounds. The abdomen was soft, non-tender, and without masses, organomegaly, or appreciable enlargement of the abdominal aorta. Extremities are dry. There is no edema. No cyanosis. No clubbing. Previous surgical scar over the hip is seen on the left. neurologically, the patient withdraws only to painful stimulation. Pupils are equal and reactive to light. No nystagmus. No clonus. No focal neurological deficits. - Labs CBC & Chem 7: 03/15/20 03:36 03/15/20 03:36 Labs: Abnormal Lab Results - Last 24 Hours (Table) 03/14/20 03/14/20 03/14/20 Range/Units 12:05 12:05 12:11 WBC (3.8-10.6) k/uL RBC (4.30-5.90) m/uL Hgb (13.0-17.5) gm/dL MCV (80.0-100.0) fL MCHC (31.0-37.0) g/dL RDW (11.5-15.5) % Plt Count (150-450) k/uL Neutrophils # (Manual) (1.3-7.7) k/uL PT (9.0-12.0) sec INR (<1.2) ABG pCO2 (35-45) mmHg ABG pO2 (83-108) mmHg ABG HCO3 (21-25) mmol/L ABG O2 Saturation (94-97) % Sodium 157 H (137-145) mmol/L Chloride 124 H (98-107) mmol/L Carbon Dioxide 13 L (22-30) mmol/L BUN 167 H* (9-20) mg/dL Creatinine 5.63 H (0.66-1.25) mg/dL Glucose 151 H (74-99) mg/dL POC Glucose (mg/dL) 138 H (75-99) mg/dL Plasma Lactic Acid Adithya 6.9 H* (0.7-2.0) mmol/L Calcium (8.4-10.2) mg/dL Total Bilirubin (0.2-1.3) mg/dL Alkaline Phosphatase (38-126) U/L Ammonia (<30) umol/L Total Protein (6.3-8.2) g/dL Albumin (3.5-5.0) g/dL 03/14/20 03/14/20 03/14/20 Range/Units 16:33 20:22 20:22 WBC (3.8-10.6) k/uL RBC (4.30-5.90) m/uL Hgb (13.0-17.5) gm/dL MCV (80.0-100.0) fL MCHC (31.0-37.0) g/dL RDW (11.5-15.5) % Plt Count (150-450) k/uL Neutrophils # (Manual) (1.3-7.7) k/uL PT (9.0-12.0) sec INR (<1.2) ABG pCO2 (35-45) mmHg ABG pO2 (83-108) mmHg ABG HCO3 (21-25) mmol/L ABG O2 Saturation (94-97) % Sodium 151 H (137-145) mmol/L Chloride 122 H (98-107) mmol/L Carbon Dioxide 11 L (22-30) mmol/L BUN (9-20) mg/dL Creatinine 5.37 H (0.66-1.25) mg/dL Glucose 202 H (74-99) mg/dL POC Glucose (mg/dL) 210 H (75-99) mg/dL Plasma Lactic Acid Adithya 7.9 H* (0.7-2.0) mmol/L Calcium (8.4-10.2) mg/dL Total Bilirubin (0.2-1.3) mg/dL Alkaline Phosphatase (38-126) U/L Ammonia (<30) umol/L Total Protein (6.3-8.2) g/dL Albumin (3.5-5.0) g/dL 03/14/20 03/14/20 03/15/20 Range/Units 21:04 23:39 00:33 WBC (3.8-10.6) k/uL RBC (4.30-5.90) m/uL Hgb (13.0-17.5) gm/dL MCV (80.0-100.0) fL MCHC (31.0-37.0) g/dL RDW (11.5-15.5) % Plt Count (150-450) k/uL Neutrophils # (Manual) (1.3-7.7) k/uL PT (9.0-12.0) sec INR (<1.2) ABG pCO2 (35-45) mmHg ABG pO2 (83-108) mmHg ABG HCO3 (21-25) mmol/L ABG O2 Saturation (94-97) % Sodium (137-145) mmol/L Chloride (98-107) mmol/L Carbon Dioxide (22-30) mmol/L BUN (9-20) mg/dL Creatinine (0.66-1.25) mg/dL Glucose (74-99) mg/dL POC Glucose (mg/dL) 184 H 267 H (75-99) mg/dL Plasma Lactic Acid Adithya 8.3 H* (0.7-2.0) mmol/L Calcium (8.4-10.2) mg/dL Total Bilirubin (0.2-1.3) mg/dL Alkaline Phosphatase (38-126) U/L Ammonia (<30) umol/L Total Protein (6.3-8.2) g/dL Albumin (3.5-5.0) g/dL 03/15/20 03/15/20 03/15/20 Range/Units 03:36 03:36 03:36 WBC 17.6 H (3.8-10.6) k/uL RBC 3.90 L (4.30-5.90) m/uL Hgb 12.5 L (13.0-17.5) gm/dL MCV 104.1 H (80.0-100.0) fL MCHC 30.8 L (31.0-37.0) g/dL RDW 17.3 H (11.5-15.5) % Plt Count 97 L D (150-450) k/uL Neutrophils # (Manual) 14.90 H (1.3-7.7) k/uL PT (9.0-12.0) sec INR (<1.2) ABG pCO2 (35-45) mmHg ABG pO2 (83-108) mmHg ABG HCO3 (21-25) mmol/L ABG O2 Saturation (94-97) % Sodium 147 H (137-145) mmol/L Chloride 112 H (98-107) mmol/L Carbon Dioxide 15 L (22-30) mmol/L BUN 161 H* (9-20) mg/dL Creatinine 4.97 H (0.66-1.25) mg/dL Glucose 285 H (74-99) mg/dL POC Glucose (mg/dL) (75-99) mg/dL Plasma Lactic Acid Adithya (0.7-2.0) mmol/L Calcium 8.2 L (8.4-10.2) mg/dL Total Bilirubin 6.5 H (0.2-1.3) mg/dL Alkaline Phosphatase 135 H (38-126) U/L Ammonia 209 H (<30) umol/L Total Protein 5.2 L (6.3-8.2) g/dL Albumin 2.2 L (3.5-5.0) g/dL 03/15/20 03/15/20 03/15/20 Range/Units 03:36 03:36 04:56 WBC (3.8-10.6) k/uL RBC (4.30-5.90) m/uL Hgb (13.0-17.5) gm/dL MCV (80.0-100.0) fL MCHC (31.0-37.0) g/dL RDW (11.5-15.5) % Plt Count (150-450) k/uL Neutrophils # (Manual) (1.3-7.7) k/uL PT 17.7 H (9.0-12.0) sec INR 1.8 H (<1.2) ABG pCO2 27 L (35-45) mmHg ABG pO2 65 L (83-108) mmHg ABG HCO3 18 L (21-25) mmol/L ABG O2 Saturation 90.2 L (94-97) % Sodium (137-145) mmol/L Chloride (98-107) mmol/L Carbon Dioxide (22-30) mmol/L BUN (9-20) mg/dL Creatinine (0.66-1.25) mg/dL Glucose (74-99) mg/dL POC Glucose (mg/dL) (75-99) mg/dL Plasma Lactic Acid Adithya 8.1 H* (0.7-2.0) mmol/L Calcium (8.4-10.2) mg/dL Total Bilirubin (0.2-1.3) mg/dL Alkaline Phosphatase (38-126) U/L Ammonia (<30) umol/L Total Protein (6.3-8.2) g/dL Albumin (3.5-5.0) g/dL 03/15/20 03/15/20 Range/Units 05:30 06:50 WBC (3.8-10.6) k/uL RBC (4.30-5.90) m/uL Hgb (13.0-17.5) gm/dL MCV (80.0-100.0) fL MCHC (31.0-37.0) g/dL RDW (11.5-15.5) % Plt Count (150-450) k/uL Neutrophils # (Manual) (1.3-7.7) k/uL PT (9.0-12.0) sec INR (<1.2) ABG pCO2 (35-45) mmHg ABG pO2 (83-108) mmHg ABG HCO3 (21-25) mmol/L ABG O2 Saturation (94-97) % Sodium (137-145) mmol/L Chloride (98-107) mmol/L Carbon Dioxide (22-30) mmol/L BUN (9-20) mg/dL Creatinine (0.66-1.25) mg/dL Glucose (74-99) mg/dL POC Glucose (mg/dL) 204 H (75-99) mg/dL Plasma Lactic Acid Adithya 7.0 H* (0.7-2.0) mmol/L Calcium (8.4-10.2) mg/dL Total Bilirubin (0.2-1.3) mg/dL Alkaline Phosphatase (38-126) U/L Ammonia (<30) umol/L Total Protein (6.3-8.2) g/dL Albumin (3.5-5.0) g/dL Microbiology - Last 24 Hours (Table) 03/14/20 09:10 Blood Culture - Preliminary Blood No Growth after 24 hours 03/13/20 02:23 Blood Culture - Preliminary Blood No Growth after 48 hours 03/13/20 03:00 Blood Culture Gram Stain - Preliminary Blood Blood Culture - Preliminary Staphylococcus aureus Assessment and Plan Plan: 1 acute kidney injury secondary to severe intravascular volume depletion. Creatinine was at 6.01 at time of admission and the patient has no evidence of hydronephrosis. The patient was severely dehydrated with hyperchloremic hypernatremia in addition to that the patient had developed an acute kidney injury. The patient may be also septic and the patient has developed positive gram-positive cocci which turned out to be staph aureus in his blood. There patient was aggressively resuscitated IV fluids and the patient was kept on D5 with 150 mEq of sodium bicarb at the rate of 150 mL an hour. He is also receiving free water flushes through the NG tube. Renal function is still in. With some modest improvement over the past 24-48 hours in the creatinine today is down to 4.97. The patient continues to have a component of anion gap me tabolic acidosis, mainly lactic acidosis. 2 severe hyperchloremic hypernatremia secondary to water deficit, the patient is currently on D5 bicarb infusion running at 75 mL an hour 3 metabolic acidosis with lactic acidosis and anion gap type, and the lactic acid level is on the rise and currently is up to 7.0. Consider liver failure. Consider sepsis and hypotension contributing to the patient's hypotension. 4 sepsis secondary to staph aureus/MSSA with secondary hypotension secondary to above, improving, currently on no pressors and the patient has been switched IV cefazolin, nevertheless, there is a concern that the patient could've had aspiration as the patient has significant bronchitis upper airways. Chest x-ray showing some limited infiltration of the left lung base. Antibiotic medication will be done. 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 Ammonia level is elevated and the patient has jaundice and hyperbilirubinemia.. Is also likely the elevated ammonia level was related to severe catabolic state and malnourishment. The p atient is currently on Xifaxan and the patient will be started also on lactulose regarding the elevated ammonia level for the possibility of underlying hepatic encephalopathy. 12 history of thrombocytopenia, with interval drop in the platelet count down to 97 13 history of acid reflux 14 history of pancreatitis 15 history of frequent falls with previous left hip surgery with intramedullary nailing 16 new-onset seizure, treated with Ativan and start the patient Plan the patient is awaiting neurology consultation. 17 the onset atrial fibrillation with rapid ventricular response, currently on amiodarone running at 0.5 mg per minute. The patient is also on norepinephrine infusion at 0.18 g per KG pigmented for hemodynamic support. Plan Continue IV fluids with D5 and 100 mEq of sodium bicarbonate the rate of 75 mL an hour and supplement the patient with pressors Continue amiodarone loading currently on a 0.5 mg per minute infusion rate Titrated and norepinephrine infusion to maintain a mean arterial pressure above 65 Modify the antibiotics and stopped IV cefazolin stenosis patient IV Zosyn regarding the possibility of an aspiration pneumonia The [place] of NG 300 mL every 4 hours Monitor the sodium levels Monitor renal function and urine output Cover the patient IV cefazolin Monitor the ammonia level and give the patient Xifaxan for 50 mg by mouth or NG twice a day. The patient will be also started on lactulose NG tube and enteral feeding for nutritional support. Dietary was consulted. The patient was started on Nepro Aspiration precautions Monitor lactic acid level Monitor ammonia level Put the patient on heparin subcu for DVT prophylaxis Repeat electrolytes Start the patient on Keppra 5 mg every 12 hours and neurological patient was also requested. The patient did develop a new onset see her today in the intensive care unit. Poor prognosis we'll continue to follow, obviously prognosis extremely poor. The patient has a very poor prognosis based on the above-mentioned comorbidities. He has a very poor baseline performance and functional status. Consider hospice care. Family is to make a decision with the next 24 hours. this is a critically care aisha luation that was on a more than 30 minutes. Time with Patient: Greater than 30
[2020-03-15 12:25] LABS: Glucose,Whole Blood 234 mg/dL (75-99)
--- NOTE | 2020-03-15 12:36 | P.PN ---
Subjective Progress Note Date: 03/15/20 Principal diagnosis: Altered mental status Patient remained obtunded today. He is still requiring vasopressors. Urine output is improving. This morning, patient has a seizure episode that was witnessed by nursing staff and the special delivery carrier. He was given IV Ativan. Ammonia level trending up. Patient also went into new onset atrial fibrillation last night and he was started on IV amiodarone. Objective - Vital Signs Vital signs: Vital Signs Temp 98.1 F 03/15/20 08:00 Pulse 123 H 03/15/20 11:00 Resp 42 H 03/15/20 11:00 BP 107/60 03/15/20 11:00 Pulse Ox 95 03/15/20 11:00 Intake & Output 03/14/20 03/15/20 03/15/20 18:59 06:59 18:59 Intake Total 2763.116 2717.892 1174 Output Total 225 410 82 Balance 2538.116 2307.892 1092 Weight 75.1 kg 73.5 kg Intake: IV 1950 1800 500 Dextrose 5% in Water 1, 1650 1800 500 000 ml @ 100 mls/hr IV . Q11H MAX with Sodium Bicarb (1 Meq/ml) 100 ml Rx#:[id number] Sodium Chloride 0.45% 1, 300 000 ml @ 100 mls/hr IV . Q10H MAX Rx#:[id number] Intake, IV Titration 493.116 427.892 254 Amount Norepinephrine 4 mg In 493.116 427.892 254 Sodium Chloride 0.9% 250 ml @ 0.05 MCG/KG/MIN 16. 85 mls/hr IV .Q15H5M MAX Rx#:[id number] Tube Feeding 20 190 120 Other 300 300 300 Output: Urine 225 410 82 Other: Voiding Method Indwelling Catheter Indwelling Catheter Indwelling Catheter - Exam General: The patient is obtunded. He appears chronically ill. Eye: there is normal conjunctiva bilaterally. Neck: The neck is supple, there is no JVD. Cardiovascular: Normal S1-S2, no S3-S4, no murmurs. Respiratory: Lungs with diffuse rhonchi and rales all over the chest Gastrointestinal: Abdomen is soft, nontender Musculoskeletal: There is no pedal edema. Skin: Skin is warm and dry - Labs CBC & Chem 7: 03/15/20 03:36 03/15/20 03:36 Labs: Abnormal Lab Results - Last 24 Hours (Table) 03/14/20 03/14/20 03/14/20 Range/Units 12:05 12:05 16:33 WBC (3.8-10.6) k/uL RBC (4.30-5.90) m/uL Hgb (13.0-17.5) gm/dL MCV (80.0-100.0) fL MCHC (31.0-37.0) g/dL RDW (11.5-15.5) % Plt Count (150-450) k/uL Neutrophils # (Manual) (1.3-7.7) k/uL PT (9.0-12.0) sec INR (<1.2) ABG pCO2 (35-45) mmHg ABG pO2 (83-108) mmHg ABG HCO3 (21-25) mmol/L ABG O2 Saturation (94-97) % Sodium 157 H (137-145) mmol/L Chloride 124 H (98-107) mmol/L Carbon Dioxide 13 L (22-30) mmol/L BUN 167 H* (9-20) mg/dL Creatinine 5.63 H (0.66-1.25) mg/dL Glucose 151 H (74-99) mg/dL POC Glucose (mg/dL) 210 H (75-99) mg/dL Plasma Lactic Acid Adithya 6.9 H* (0.7-2.0) mmol/L Calcium (8.4-10.2) mg/dL Total Bilirubin (0.2-1.3) mg/dL Alkaline Phosphatase (38-126) U/L Ammonia (<30) umol/L Total Protein (6.3-8.2) g/dL Albumin (3.5-5.0) g/dL 03/14/20 03/14/20 03/14/20 Range/Units 20:22 20:22 21:04 WBC (3.8-10.6) k/uL RBC (4.30-5.90) m/uL Hgb (13.0-17.5) gm/dL MCV (80.0-100.0) fL MCHC (31.0-37.0) g/dL RDW (11.5-15.5) % Plt Count (150-450) k/uL Neutrophils # (Manual) (1.3-7.7) k/uL PT (9.0-12.0) sec INR (<1.2) ABG pCO2 (35-45) mmHg ABG pO2 (83-108) mmHg ABG HCO3 (21-25) mmol/L ABG O2 Saturation (94-97) % Sodium 151 H (137-145) mmol/L Chloride 122 H (98-107) mmol/L Carbon Dioxide 11 L (22-30) mmol/L BUN (9-20) mg/dL Creatinine 5.37 H (0.66-1.25) mg/dL Glucose 202 H (74-99) mg/dL POC Glucose (mg/dL) 184 H (75-99) mg/dL Plasma Lactic Acid Adithya 7.9 H* (0.7-2.0) mmol/L Calcium (8.4-10.2) mg/dL Total Bilirubin (0.2-1.3) mg/dL Alkaline Phosphatase (38-126) U/L Ammonia (<30) umol/L Total Protein (6.3-8.2) g/dL Albumin (3.5-5.0) g/dL 03/14/20 03/15/20 03/15/20 Range/Units 23:39 00:33 03:36 WBC (3.8-10.6) k/uL RBC (4.30-5.90) m/uL Hgb (13.0-17.5) gm/dL MCV (80.0-100.0) fL MCHC (31.0-37.0) g/dL RDW (11.5-15.5) % Plt Count (150-450) k/uL Neutrophils # (Manual) (1.3-7.7) k/uL PT (9.0-12.0) sec INR (<1.2) ABG pCO2 (35-45) mmHg ABG pO2 (83-108) mmHg ABG HCO3 (21-25) mmol/L ABG O2 Saturation (94-97) % Sodium 147 H (137-145) mmol/L Chloride 112 H (98-107) mmol/L Carbon Dioxide 15 L (22-30) mmol/L BUN 161 H* (9-20) mg/dL Creatinine 4.97 H (0.66-1.25) mg/dL Glucose 285 H (74-99) mg/dL POC Glucose (mg/dL) 267 H (75-99) mg/dL Plasma Lactic Acid Adithya 8.3 H* (0.7-2.0) mmol/L Calcium 8.2 L (8.4-10.2) mg/dL Total Bilirubin 6.5 H (0.2-1.3) mg/dL Alkaline Phosphatase 135 H (38-126) U/L Ammonia (<30) umol/L Total Protein 5.2 L (6.3-8.2) g/dL Albumin 2.2 L (3.5-5.0) g/dL 03/15/20 03/15/20 03/15/20 Range/Units 03:36 03:36 03:36 WBC 17.6 H (3.8-10.6) k/uL RBC 3.90 L (4.30-5.90) m/uL Hgb 12.5 L (13.0-17.5) gm/dL MCV 104.1 H (80.0-100.0) fL MCHC 30.8 L (31.0-37.0) g/dL RDW 17.3 H (11.5-15.5) % Plt Count 97 L D (150-450) k/uL Neutrophils # (Manual) 14.90 H (1.3-7.7) k/uL PT 17.7 H (9.0-12.0) sec INR 1.8 H (<1.2) ABG pCO2 (35-45) mmHg ABG pO2 (83-108) mmHg ABG HCO3 (21-25) mmol/L ABG O2 Saturation (94-97) % Sodium (137-145) mmol/L Chloride (98-107) mmol/L Carbon Dioxide (22-30) mmol/L BUN (9-20) mg/dL Creatinine (0.66-1.25) mg/dL Glucose (74-99) mg/dL POC Glucose (mg/dL) (75-99) mg/dL Plasma Lactic Acid Adithya (0.7-2.0) mmol/L Calcium (8.4-10.2) mg/dL Total Bilirubin (0.2-1.3) mg/dL Alkaline Phosphatase (38-126) U/L Ammonia 209 H (<30) umol/L Total Protein (6.3-8.2) g/dL Albumin (3.5-5.0) g/dL 03/15/20 03/15/20 03/15/20 Range/Units 03:36 04:56 05:30 WBC (3.8-10.6) k/uL RBC (4.30-5.90) m/uL Hgb (13.0-17.5) gm/dL MCV (80.0-100.0) fL MCHC (31.0-37.0) g/dL RDW (11.5-15.5) % Plt Count (150-450) k/uL Neutrophils # (Manual) (1.3-7.7) k/uL PT (9.0-12.0) sec INR (<1.2) ABG pCO2 27 L (35-45) mmHg ABG pO2 65 L (83-108) mmHg ABG HCO3 18 L (21-25) mmol/L ABG O2 Saturation 90.2 L (94-97) % Sodium (137-145) mmol/L Chloride (98-107) mmol/L Carbon Dioxide (22-30) mmol/L BUN (9-20) mg/dL Creatinine (0.66-1.25) mg/dL Glucose (74-99) mg/dL POC Glucose (mg/dL) 204 H (75-99) mg/dL Plasma Lactic Acid Adithya 8.1 H* (0.7-2.0) mmol/L Calcium (8.4-10.2) mg/dL Total Bilirubin (0.2-1.3) mg/dL Alkaline Phosphatase (38-126) U/L Ammonia (<30) umol/L Total Protein (6.3-8.2) g/dL Albumin (3.5-5.0) g/dL 03/15/20 03/15/20 Range/Units 06:50 12:24 WBC (3.8-10.6) k/uL RBC (4.30-5.90) m/uL Hgb (13.0-17.5) gm/dL MCV (80.0-100.0) fL MCHC (31.0-37.0) g/dL RDW (11.5-15.5) % Plt Count (150-450) k/uL Neutrophils # (Manual) (1.3-7.7) k/uL PT (9.0-12.0) sec INR (<1.2) ABG pCO2 (35-45) mmHg ABG pO2 (83-108) mmHg ABG HCO3 (21-25) mmol/L ABG O2 Saturation (94-97) % Sodium (137-145) mmol/L Chloride (98-107) mmol/L Carbon Dioxide (22-30) mmol/L BUN (9-20) mg/dL Creatinine (0.66-1.25) mg/dL Glucose (74-99) mg/dL POC Glucose (mg/dL) 234 H (75-99) mg/dL Plasma Lactic Acid Adithya 7.0 H* (0.7-2.0) mmol/L Calcium (8.4-10.2) mg/dL Total Bilirubin (0.2-1.3) mg/dL Alkaline Phosphatase (38-126) U/L Ammonia (<30) umol/L Total Protein (6.3-8.2) g/dL Albumin (3.5-5.0) g/dL Microbiology - Last 24 Hours (Table) 03/14/20 09:10 Blood Culture - Preliminary Blood No Growth after 24 hours 03/13/20 02:23 Blood Culture - Preliminary Blood No Growth after 48 hours 03/13/20 03:00 Blood Culture Gram Stain - Preliminary Blood Blood Culture - Preliminary Staphylococcus aureus Assessment and Plan Assessment: This is a 79-year-old male with complex past medical history noted below who presented to the emergency room from a local detention with altered mental status and unresponsiveness. Patient was evaluated in the ER and currently admi ts to the hospital for further management of his medical problems noted below. 1. Severe hypernatremia: Secondary to dehydration. Sodium level on presentation 168. Trending down. Patient was treated aggressively with IV fluid hydration. 2. Acute kidney injury, oliguric. With severe uremia. Nephrology following. Kidney ultrasound showed evidence of parenchymal thinning and cortical medullary disease. No hydronephrosis noted. 3. 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 Patient is currently receiving lactulose and rifaximin. We'll continue to monitor ammonia level daily. 4. Acute toxo metabolic encephalopathy secondary to above. Computed tomography scan of the head showed no acute intracranial findings 5. MSSA bacteremia: 1/2 sets on 03/13 positive for MSSA. Patient was given 1 dose of vancomycin and I transitioned him to IV cefazolin on 03/14/2020. Source of infection not clear. Antibiotic changed to Zosyn on 03/15. Infectious disease consult 6. Severe sepsis with septic shock requiring levophed. Source of infection not clear to me. Lactic acid trending down. 7. Underlying liver disease/cirrhosis, unclear etiology. Patient's son is not sure whether patient has underlying hepatitis. He told me his father was never a heavy drinker. I would order an acute hepatitis panel to rule out chronic hep C. 8. Suspected aspiration pneumonia: Started on IV Zosyn 9. New onset atrial fibrillation, started on IV amiodarone. Echocardiogram ordered and pending. TSH within normal range. 10. Stage I pressure ulcer of the left heel: Present on admission. No evidence of infection. 11. Moderate to severe malnutrition, started on tube feeding. Dietitian consulted. 12. Severe metabolic acidosis. Patient was on a bicarb drip. Currently on sodium bicarbonate 4 times a day 13. DVT prophylaxis: With subcu heparin 14. GI prophylaxis with IV Protonix 15. CODE STATUS: Patient is no code. Discussed with his son by me and ICU care over the phone on 03/15/2020 Today, I reviewed his medication list and lab work results. Appreciate managing consultant clinical professor's recommendations. current management. Repeat lab work in the [facility]. Prognosis is guarded. Family considering comfort measures/hospice care
[2020-03-15 12:58] VITALS: TEMP 98
[2020-03-15] MEDS ORDERED: SODIUM BICARBONATE TAB 650 MG TAB PO SCH (13:00)
--- NOTE | 2020-03-15 13:57 | EEG ---
ELECTROENCEPHALOGRAM REPORT DATE OF SERVICE: 03/15/2020 CLINICAL HISTORY: This is an 79-year-old gentleman with a reported history of dementia, diabetes who presented to the emergency department on 03/13/2020 for altered mental status and hypotension. Today in the morning the patient had seizure-like activity. This video EEG was obtained to evaluate for seizure and epileptiform activity. RELEVANT MEDICATION: Ativan 4 mg and Keppra 500 mg b.i.d. EEG TYPE: A routine 21 channel EEG was performed with video using 10/20 electrode placement system. DESCRIPTION: Wakefulness is only obtained. There is no posterior dominant rhythm seen during the study. During wakefulness, the background consists of diffuse low voltage of 0.5-1.5 hertz polymorphic delta activity over bilateral hemisphere. There was no physiological stage 2 sleep. There is excessive fast activity seen during the study. There is significant electrode artifacts seen over the F8 and F7 electrodes. INTERICTAL AND ICTAL: None ACTIVATION PROCEDURE: Photic stimulation was not performed because of the patient's clinical condition. Hyperventilation was not performed because of the patient clinical condition. EEG DIAGNOSIS: This is an abnormal routine EEG with significant background slowing suggestive of severe encephalopathy of unspecified etiology. There is no focal slowing, epileptiform activity or seizure during the study. The excessive fast activity is due to medication effect. There is electrode artifact seen during the study. Clinical correlation is recommended. JUAN ANTONIOL / IJN: [id number] / MTDD
[2020-03-15] MEDS ORDERED: ATROPINE OPHTH SOLN 1% 5ML BTL SUBLINGUAL PRN (14:52)
[2020-03-15] MEDS ORDERED: MORPHINE SULFATE 4 MG/ML SYRINGE IV PRN (14:52)
[2020-03-15] MEDS ORDERED: MORPHINE SULFATE 2 MG/ML SYRINGE IV PRN (14:52)
[2020-03-15] MEDS ORDERED: MORPHINE SULFATE (100 MG/2 ML) 100 MG in SODIUM CHLORIDE 0.9% 100 ML IV SCH (15:00)
[2020-03-15] MEDS ORDERED: SODIUM CHLORIDE 0.9% 1,000 ML IV SCH (15:00)
[2020-03-15] MEDS ORDERED: SCOPOLAMINE 1.5MG/72HR PATCH TRANSDERM SCH (15:00)
--- NOTE | 2020-03-15 15:02 | P.CNNES ---
History of Present Illness Consult date: 03/15/20 Requesting physician: Jeana Rodriguez Reason for Consult: seizure History of Present Illness: This is an 79 -year-old gentleman with history of dementia, diabetes, coronary artery disease, hyperlipidemia, recent previous history of a fall with fracture of the right hip that presented to the emergency department on 03/13/2020 for altered mental status and hypotension. History obtained from from medical record. The caregiver at the shelter stated the patient is more altered than his baseline. And he was nonverbal. It is reported that the patient the has been having poor oral intake and the patient has been progressively losing weight. His initial vital signs were blood pressure of 74/52, heart rate of 89, respiratory of 14, temperature of 94.5 Fahrenheit oral and pulse ox of 98 at room air. On presentation his initial loss sodium was 168 baseline runs in the 140s. His creatinine on presentation was as 6.01 and at a finance normal. On presentation the patient the lactic acid was 7.2 venous. His white blood cells were 18,000 and and had repeat was up to 21,000. Patient blood culture on 03/13/2020 shows the patient has staph aureus. During his hospital stay the patient received IV fluid as well as pressor. It seems that the patient received vancomycin on 03/14/2020. Currently the antibiotic the patient is on is Zosyn. Per the patient nurse earlier in the morning today the patient was having twitching of all extremities but mostly noticeable on the right side for at least one hour. Then around 8:30 patient had generalized tonic-clonic seizure. The patient became had extensor posturing lasting about 3-4 minutes. The nurse is not sure if the patient had any gaze version but he felt like maybe the patient was having roving of the eyes. As a result the patient was given 4 mg of Ativan and was started on Keppra by ICU team. Of note it is documented that the patient has questionable chronic liver disease related to alcohol use. And that the patient has been maintained on combination of diuretic including Lasix and Aldactone and lactulose on an outpatient basis for his elevated ammonia levels. In the hospital stay the patient had CT of the head on the 03/13/2020 and was reported as age-related atrophic and chronic small vessel ischemic change without acute intracranial process seen at this time. History reviewed the CT of the head and I don't see any acute ischemia, hemorrhage or any significant encephalomalacia. I do see the age-appropriate the atrophy. Patient does have chronic small vessel ischemic changes. Per patient son (Clovis) I spoke via phone, he stated that the patient does not have any history of seizures. The only person that has a history of seizures was his daughter at the age of 20. 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 Patient was still alert oriented to self place and time according to the son. He was living in a nursing facility since October 2019 because the family felt like they can provide him the care that he needed it. Patient had the an old left hip fra cture from a fall. Regarding the patient confusion patient would forget new events. They felt like his forgetfulness was appropriate for his age. He stated that he was never diagnosed with dementia. It is documented the patient has advanced dementia. Review of Systems Review of system is limited but per her positive and negative as per HPI. Past Medical History Past Medical History: Coronary Artery Disease (CAD), COPD, Diabetes Mellitus, GERD/Reflux, Hyperlipidemia, Liver Disease Additional Past Medical History / Comment(s): history of pancreatitis, Right hip fracture, Right femoral neck fracture, Diabetes mellitus, Thrombocytopenia, CAD, COPD, GERD, dyslipidemia History of Any Multi-Drug Resistant Organisms: None Reported Past Surgical History: Orthopedic Surgery Additional Past Surgical History / Comment(s): Left knee arthroplasty, Left hip replacement Past Anesthesia/Blood Transfusion Reactions: No Reported Reaction Past Psychological History: No Psychological Hx Reported Smoking Status: Never smoker Past Alcohol Use History: None Reported Past Drug Use History: None Reported - Past Family History family Family Medical History: Unable to Obtain Medications and Allergies Home Medications Medication Instructions Recorded Confirmed Type Acetaminophen Tab [Tylenol] 500 mg PO Q6HR PRN 02/29/20 03/13/20 History Furosemide [Lasix] 80 mg PO DAILY 02/29/20 03/13/20 History Lactulose 20 gm PO BID@0900,209902/29/20 03/13/20 History Melatonin 5 mg PO HS PRN 02/29/20 03/13/20 History Multivitamins, Thera [Multivitamin 1 tab PO DAILY@0900 02/29/20 03/13/20 History (formulary)] Nitroglycerin Sl Tabs [Nitrostat] 0.4 mg SUBLINGUAL Q5M PRN 02/29/20 03/13/20 History Prostat 30 ml PO DAILY 02/29/20 03/13/20 History Spironolactone 25 mg PO DAILY@0900 02/29/20 03/13/20 History Tamsulosin [Flomax] 0.4 mg PO DAILY 02/29/20 03/13/20 History Venlafaxine HCl [Effexor XR] 150 mg PO DAILY@0900 02/29/20 03/13/20 History metFORMIN HCL [Glucophage] 500 mg PO BID@0900,1700 02/29/20 03/13/20 History Gabapentin [Neurontin] 400 mg PO TID@0800,1400,2200 #9 cap 03/03/20 03/13/20 Rx Allergies Allergy/AdvReac Type Severity Reaction Status Date / Time [id number] Reductase Allergy Unknown Verified 03/13/20 08:27 Inhibitor Physical Examination - Vital Signs Vital Signs: Vital Signs Temp Pulse Resp BP Pulse Ox 03/15/20 12:30 122 H 40 H 123/57 95 03/15/20 12:00 98 F 121 H 45 H 117/54 96 03/15/20 11:30 121 H 40 H 109/53 96 03/15/20 11:00 123 H 42 H 107/60 95 03/15/20 10:30 120 H 40 H 111/60 95 03/15/20 10:00 118 H 31 H 80/32 92 L 03/15/20 09:30 115 H 42 H 90/42 94 L 03/15/20 09:00 117 H 40 H 72/45 94 L 03/15/20 08:30 116 H 36 H 93/54 94 L 03/15/20 08:00 98.1 F 122 H 35 H 103/59 94 L 03/15/20 07:30 124 H 33 H 103/57 96 03/15/20 07:00 110 H 28 H 103/57 96 03/15/20 06:30 120 H 25 H 105/61 93 L 03/15/20 06:00 110 H 24 96/51 93 L 03/15/20 05:30 116 H 23 110/56 94 L 03/15/20 05:00 114 H 22 105/56 94 L 03/15/20 04:30 112 H 22 110/64 92 L 03/15/20 04:00 98.8 F 113 H 20 105/54 91 L 03/15/20 03:30 110 H 23 98/50 93 L 03/15/20 03:24 93 L 03/15/20 03:00 118 H 20 100/56 91 L 03/15/20 02:30 111 H 28 H 101/59 90 L 03/15/20 02:00 117 H 22 99/65 91 L 03/15/20 01:30 103 H 24 92/49 93 L 03/15/20 01:00 116 H 20 110/96 93 L 03/15/20 00:30 122 H 19 100/59 93 L 03/15/20 00:00 116 H 22 104/59 94 L 03/14/20 23:30 110 H 24 109/63 94 L 03/14/20 23:00 126 H 22 116/66 93 L 03/14/20 22:30 112 H 24 122/69 95 03/14/20 22:00 130 H 22 96/73 95 03/14/20 21:30 111 H 24 112/67 95 03/14/20 21:00 118 H 21 95/70 96 03/14/20 20:00 97.7 F 117 H 24 119/61 96 03/14/20 19:00 126 H 22 110/63 96 03/14/20 18:00 115 H 29 H 100/71 96 03/14/20 17:00 125 H 29 H 117/66 94 L 03/14/20 16:00 98.1 F 114 H 29 H 109/66 95 03/14/20 15:00 120 H 29 H 112/49 96 Intake and Output 03/14/20 03/15/20 03/15/20 22:59 06:59 14:59 Intake Total 1924 2117.892 2004 Output Total 220 290 132 Balance 1704 1290.536 6959 Intake: IV 1350 1200 700 Dextrose 5% in Water 1, 1350 1200 700 000 ml @ 100 mls/hr IV . Q11H MAX with Sodium Bicarb (1 Meq/ml) 100 ml Rx#:[id number] Intake, IV Titration 254 427.892 254 Amount Norepinephrine 4 mg In 254 427.892 254 Sodium Chloride 0.9% 250 ml @ 0.05 MCG/KG/MIN 16. 85 mls/hr IV .[id number] [facility] Rx#:[id number] Tube Feeding 20 190 450 Other 300 300 600 Output: Urine 220 290 132 Other: Voiding Method Indwelling Catheter Indwelling Catheter Indwelling Catheter Weight 73.5 kg GENERAL: Lying in bed and does not seem in distress.. HENT: Normocephalic, atraumatic. Negative for Brudzinski or Kernig sign. CHEST: The heart rate is regular rate rhythm. No murmurs to auscultation. LUNG: Patient has noisy breathing. He seemed somewhat tachypneic. Not labored breathing. ABDOMEN/GI: Bowel sounds present in all 4 quadrants. No tenderness to palpation throughout. NEUROLOGICAL: Limited because of the patient condition: Higher mental function: Patient is comatose and not responsive. Cranial nerves: The pupils were about 4 mm bilaterally and reactive to light s ymmetrically. Patient was having roving eye movement upon seeing the patient there is no gaze version. No facial weakness was appreciated. Motor: Gait is deferred because of the patient condition. Motor unable to assess because of the patient condition. Normal tone and bulk. Sensation: Unable to assess light touch but with painful stimuli he will slightly open both eyes. Reflexes is 2+ in the bilateral upper extremity and 1+ in the lower extremity except at the ankle 0. The plantars are downgoing bilaterally. Results AST on initial presentation was 44 on repeated was 45 which was done today. ALTs initially was 29 and the repeat is 28. Calcium on initial presentation is 9.9. The latest is 8.2. Hemoglobin A1c is 4.7. Ammonia on initial presentation 86. On repeated is 209. O'clock phosphatase is 157 TSH: 1.330. Cognition study on initial presentation was 19.3, INR 2.0 and PTT of 27.3 Urinalysis was done on 03/13/2020 and shows the nitrite was negative leukocyte esterase was moderate urine white blood cells 4. - Laboratory Findings CBC and BMP: 03/15/20 03:36 03/15/20 03:36 Abnormal Lab Findings: Abnormal Labs 03/13/20 03/13/20 03/13/20 02:23 02:23 02:23 WBC 18.3 H RBC Hgb MCV 102.8 H D MCHC 30.7 L RDW 17.0 H Plt Count Neutrophils # 14.8 H Neutrophils # (Manual) Monocytes # PT 19.3 H INR 2.0 H ABG pH ABG pCO2 ABG pO2 ABG HCO3 ABG Total CO2 ABG O2 Saturation Sodium Potassium Chloride Carbon Dioxide BUN Creatinine Glucose POC Glucose (mg/dL) Plasma Lactic Acid Adithya Calcium Magnesium Total Bilirubin Alkaline Phosphatase Ammonia Total Protein Albumin Ur Leukocyte Esterase Moderate H 03/13/20 03/13/20 03/13/20 02:23 02:23 04:12 WBC RBC Hgb MCV MCHC RDW Plt Count Neutrophils # Neutrophils # (Manual) Monocytes # PT INR ABG pH ABG pCO2 ABG pO2 ABG HCO3 ABG Total CO2 ABG O2 Saturation Sodium 168 H* Potassium Chloride 126 H Carbon Dioxide 20 L BUN 167 H* Creatinine 6.01 H Glucose 148 H POC Glucose (mg/dL) 132 H Plasma Lactic Acid Adithya 7.2 H* Calcium Magnesium Total Bilirubin 7.2 H Alkaline Phosphatase 198 H Ammonia 86 H Total Protein Albumin Ur Leukocyte Esterase 03/13/20 03/13/20 03/13/20 05:55 05:55 06:09 WBC RBC Hgb MCV MCHC RDW Plt Count Neutrophils # Neutrophils # (Manual) Monocytes # PT INR ABG pH ABG pCO2 ABG pO2 ABG HCO3 ABG Total CO2 ABG O2 Saturation Sodium 167 H* Potassium Chloride 135 H* Carbon Dioxide 13 L BUN 167 H* Creatinine 5.37 H Glucose 139 H POC Glucose (mg/dL) 129 H Plasma Lactic Acid Adithya 4.0 H* Calcium Magnesium Total Bilirubin Alkaline Phosphatase Ammonia Total Protein Albumin Ur Leukocyte Esterase 03/13/20 03/13/20 03/13/20 07:19 08:51 11:50 WBC RBC Hgb MCV MCHC RDW Plt Count Neutrophils # Neutrophils # (Manual) Monocytes # PT INR ABG pH 7.50 H ABG pCO2 22 L ABG pO2 ABG HCO3 17 L ABG Total CO2 18 L ABG O2 Saturation 98.5 H Sodium Potassium Chloride Carbon Dioxide BUN Creatinine Glucose POC Glucose (mg/dL) 262 H Plasma Lactic Acid Adithya 3.6 H* Calcium Magnesium Total Bilirubin Alkaline Phosphatase Ammonia Total Protein Albumin Ur Leukocyte Esterase 03/13/20 03/13/20 03/13/20 13:21 15:47 15:51 WBC RBC Hgb MCV MCHC RDW Plt Count Neutrophils # Neutrophils # (Manual) Monocytes # PT INR ABG pH ABG pCO2 ABG pO2 ABG HCO3 ABG Total CO2 ABG O2 Saturation Sodium 155 H Potassium 3.3 L Chloride 125 H Carbon Dioxide 15 L BUN 157 H* Creatinine 5.36 H Glucose 144 H POC Glucose (mg/dL) Plasma Lactic Acid Adithya 5.2 H* 4.7 H* Calcium Magnesium Total Bilirubin Alkaline Phosphatase Ammonia Total Protein Albumin Ur Leukocyte Esterase 03/13/20 03/13/20 03/13/20 17:19 18:43 20:46 WBC RBC Hgb MCV MCHC RDW Plt Count Neutrophils # Neutrophils # (Manual) Monocytes # PT INR ABG pH ABG pCO2 ABG pO2 ABG HCO3 ABG Total CO2 ABG O2 Saturation Sodium 154 H Potassium Chloride 125 H Carbon Dioxide 14 L BUN 157 H* Creatinine 5.31 H Glucose 125 H POC Glucose (mg/dL) 118 H Plasma Lactic Acid Adithya 3.7 H* Calcium Magnesium Total Bilirubin Alkaline Phosphatase Ammonia Total Protein Albumin Ur Leukocyte Esterase 03/13/20 03/13/20 03/14/20 20:46 23:35 00:33 WBC RBC Hgb MCV MCHC RDW Plt Count Neutrophils # Neutrophils # (Manual) Monocytes # PT INR ABG pH ABG pCO2 ABG pO2 ABG HCO3 ABG Total CO2 ABG O2 Saturation Sodium Potassium Chloride Carbon Dioxide BUN Creatinine Glucose POC Glucose (mg/dL) 131 H Plasma Lactic Acid Adithya 3.9 H* 3.6 H* Calcium Magnesium Total Bilirubin Alkaline Phosphatase Ammonia Total Protein Albumin Ur Leukocyte Esterase 03/14/20 03/14/20 03/14/20 03:12 03:12 03:12 WBC 21.3 H RBC 4.13 L Hgb MCV 105.5 H MCHC 30.9 L RDW 16.7 H Plt Count Neutrophils # 16.7 H Neutrophils # (Manual) Monocytes # 1.5 H PT INR ABG pH ABG pCO2 ABG pO2 ABG HCO3 ABG Total CO2 ABG O2 Saturation Sodium 156 H Potassium Chloride 125 H Carbon Dioxide 15 L BUN 165 H* Creatinine 5.45 H Glucose 157 H POC Glucose (mg/dL) Plasma Lactic Acid Adithya Calcium Magnesium 2.6 H Total Bilirubin 7.7 H Alkaline Phosphatase 157 H Ammonia 159 H Total Protein 6.2 L Albumin 2.7 L Ur Leukocyte Esterase 03/14/20 03/14/20 03/14/20 03:12 04:14 06:02 WBC RBC Hgb MCV MCHC RDW Plt Count Neutrophils # Neutrophils # (Manual) Monocytes # PT INR ABG pH ABG pCO2 ABG pO2 ABG HCO3 ABG Total CO2 ABG O2 Saturation Sodium Potassium Chloride Carbon Dioxide BUN Creatinine Glucose POC Glucose (mg/dL) 147 H 175 H Plasma Lactic Acid Adithya 4.4 H* Calcium Magnesium Total Bilirubin Alkaline Phosphatase Ammonia Total Protein Albumin Ur Leukocyte Esterase 03/14/20 03/14/20 03/14/20 06:13 07:55 09:10 WBC RBC Hgb MCV MCHC RDW Plt Count Neutrophils # Neutrophils # (Manual) Monocytes # PT INR ABG pH ABG pCO2 ABG pO2 ABG HCO3 ABG Total CO2 ABG O2 Saturation Sodium Potassium Chloride Carbon Dioxide BUN Creatinine Glucose POC Glucose (mg/dL) 139 H Plasma Lactic Acid Adithya 5.6 H* 6.1 H* Calcium Magnesium Total Bilirubin Alkaline Phosphatase Ammonia Total Protein Albumin Ur Leukocyte Esterase 03/14/20 03/14/20 03/14/20 12:05 12:05 12:11 WBC RBC Hgb MCV MCHC RDW Plt Count Neutrophils # Neutrophils # (Manual) Monocytes # PT INR ABG pH ABG pCO2 ABG pO2 ABG HCO3 ABG Total CO2 ABG O2 Saturation Sodium 157 H Potassium Chloride 124 H Carbon Dioxide 13 L BUN 167 H* Creatinine 5.63 H Glucose 151 H POC Glucose (mg/dL) 138 H Plasma Lactic Acid Adithya 6.9 H* Calcium Magnesium Total Bilirubin Alkaline Phosphatase Ammonia Total Protein Albumin Ur Leukocyte Esterase 03/14/20 03/14/20 03/14/20 16:33 20:22 20:22 WBC RBC Hgb MCV MCHC RDW Plt Count Neutrophils # Neutrophils # (Manual) Monocytes # PT INR ABG pH ABG pCO2 ABG pO2 ABG HCO3 ABG Total CO2 ABG O2 Saturation Sodium 151 H Potassium Chloride 122 H Carbon Dioxide 11 L BUN Creatinine 5.37 H Glucose 202 H POC Glucose (mg/dL) 210 H Plasma Lactic Acid Adithya 7.9 H* Calcium Magnesium Total Bilirubin Alkaline Phosphatase Ammonia Total Protein Albumin Ur Leukocyte Esterase 03/14/20 03/14/20 03/15/20 21:04 23:39 00:33 WBC RBC Hgb MCV MCHC RDW Plt Count Neutrophils # Neutrophils # (Manual) Monocytes # PT INR ABG pH ABG pCO2 ABG pO2 ABG HCO3 ABG Total CO2 ABG O2 Saturation Sodium Potassium Chloride Carbon Dioxide BUN Creatinine Glucose POC Glucose (mg/dL) 184 H 267 H Plasma Lactic Acid Adithya 8.3 H* Calcium Magnesium Total Bilirubin Alkaline Phosphatase Ammonia Total Protein Albumin Ur Leukocyte Esterase 03/15/20 03/15/20 03/15/20 03:36 03:36 03:36 WBC 17.6 H RBC 3.90 L Hgb 12.5 L MCV 104.1 H MCHC 30.8 L RDW 17.3 H Plt Count 97 L D Neutrophils # Neutrophils # (Manual) 14.90 H Monocytes # PT INR ABG pH ABG pCO2 ABG pO2 ABG HCO3 ABG Total CO2 ABG O2 Saturation Sodium 147 H Potassium Chloride 112 H Carbon Dioxide 15 L BUN 161 H* Creatinine 4.97 H Glucose 285 H POC Glucose (mg/dL) Plasma Lactic Acid Adithya Calcium 8.2 L Magnesium Total Bilirubin 6.5 H Alkaline Phosphatase 135 H Ammonia 209 H Total Protein 5.2 L Albumin 2.2 L Ur Leukocyte Esterase 03/15/20 03/15/20 03/15/20 03:36 03:36 04:56 WBC RBC Hgb MCV MCHC RDW Plt Count Neutrophils # Neutrophils # (Manual) Monocytes # PT 17.7 H INR 1.8 H ABG pH ABG pCO2 27 L ABG pO2 65 L ABG HCO3 18 L ABG Total CO2 ABG O2 Saturation 90.2 L Sodium Potassium Chloride Carbon Dioxide BUN Creatinine Glucose POC Glucose (mg/dL) Plasma Lactic Acid Adithya 8.1 H* Calcium Magnesium Total Bilirubin Alkaline Phosphatase Ammonia Total Protein Albumin Ur Leukocyte Esterase 03/15/20 03/15/20 03/15/20 05:30 06:50 12:24 WBC RBC Hgb MCV MCHC RDW Plt Count Neutrophils # Neutrophils # (Manual) Monocytes # PT INR ABG pH ABG pCO2 ABG pO2 ABG HCO3 ABG Total CO2 ABG O2 Saturation Sodium Potassium Chloride Carbon Dioxide BUN Creatinine Glucose POC Glucose (mg/dL) 204 H 234 H Plasma Lactic Acid Adithya 7.0 H* Calcium Magnesium Total Bilirubin Alkaline Phosphatase Ammonia Total Protein Albumin Ur Leukocyte Esterase Assessment and Plan Assessment: New onset Seizure (seems provoked (from underlying infection and his electrolyte imbalance)) Toxic metabolic encephalopathy (from underlying infection, high ammonia level and electrolyte imbalance) Acute hypernatremiia due to dehydration ---improving Septic shock (MSSA bacteremia) Acute kidney injury MSSA bacteremia History of right femoral neck fracture Artery disease Diabetes mellitus Hyperlipidemia History of pancreatitis History of frequent falls with previous left hip surgery with intramedullary nailing Chronic liver disease. Chronic thrombocytopenia New onset atrial fibrillation with rapid ventricular response Plan: Regarding the patient utilizes seizure patient was given 4 mg of Ativan and Keppra 500mg bid by ICU team. Because prolonged episode of seizure-like activity I recommend continuing Keppra 500 mg every 12 hours. Routine EEG: Was an abnormal routine EEG was significant background slowing suggestive of severe encephalopathy. There are no focal slowing, epileptiform activity or seizures seen during the study. Excessive fast activity is due to medication effect. There is electrode artifact seen during the study. Patient last sodium level was 8.2 recommend getting ionized calcium if the family decides to pursue with further medical care. Of note it is documented that the patient has questionable chronic liver dis ease. The patient has been maintained on combination of diuretic including Lasix and Aldactone and lactulose on an outpatient basis for his elevated ammonia levels. We'll defer the management to the primary is localized to team. Regarding the patient's sepsis. we'll defer the management to the ID as well as ICU team. We'll defer the rest of the medical management to the ICU as well as primary t eam.. Notified by the patient nurse that the family as the pursuing comfort care likely. The findings of the EEG and the neurological plan was discussed with the patient's son via phone. Thank you for the consult. Zackary Nichols M.D. Neuro-hospitalist Time with Patient: Greater than 30
--- NOTE | 2020-03-15 18:33 | ECHOF ---
Referral Reason:Afib nRVR MEASUREMENTS -------- HEIGHT: 157.5 cm WEIGHT: 73.5 kg BP: RVIDd: 3.3 cm (< 3.3) IVSd: 1.3 cm (0.6 - 1.1) LVIDd: 4.3 cm (3.9 - 5.3) LVPWd: 1.4 cm (0.6 - 1.1) IVSs: 1.5 cm LVIDs: 3.4 cm LVPWs: 1.6 cm MV EXCURSION: 17.354 mm (> 18.000) MV EF SLOPE: 151 mm/s (70 - 150) EPSS: 0.5 cm FINDINGS -------- Undetermined rhythm. This was a techncally difficult study with suboptimal views, , Lumason utilized for enhancement of im ages. The left ventricular size is normal. There is borderline concentric left ventricular hypertrophy. Overall left ventricular systolic function is normal with, an EF between 55 - 60 %. The right ventricle is normal in size. The left atrial size is normal. The right atrial size is normal. There is mild aortic valve sclerosis. There is no evidence of aortic regurgitation. The mitral valve was not well visualized. The tricuspid valve was not well visualized. The pulmonic valve was not well visualized. The aortic root size is normal. There is no pericardial effusion. CONCLUSIONS -------- 1. This was a techncally difficult study with suboptimal views, , Lumason utilized for enhancement of images. 2. The left ventricular size is normal. 3. There is borderline concentric left ventricular hypertrophy. 4. Overall left ventricular systolic function is normal with, an EF between 55 - 60 %. 5. The right ventricle is normal in size. 6. The left atrial size is normal. 7. The right atrial size is normal. 8. There is mild aortic valve sclerosis. 9. The mitral valve was not well visualized. 10. The tricuspid valve was not well visualized. 11. The pulmonic valve was not well visualized. 12. There is no pericardial effusion. CRATE ICER: Josefa Rosales RDCS
[2020-03-15 19:15] VITALS: BP 52/29; PULSE 109; RESP 25
[2020-03-15 21:52] LABS: Hepatitis B Surface AB- Quant 709.9 mIU/mL; Hepatitis B Surface Antibody Reactive (Non-Reactive); Hepatitis B Surface Antigen Non-Reactive (Non-Reactive)
--- NOTE | 2020-03-16 07:45 | P.DS ---
Providers Date of admission: 03/13/20 03:59 Expected date of discharge: 03/16/20 Attending physician: Ramesh Miles MD Consults: 03/13/20 04:00 Consult Physician Routine Consulting Provider: Bunny Nichols Consult Reason/Comments: ICU management Do you want consulting provider notified?: Already Contacted Consult Physician Routine Consulting Provider: Davis Servin Consult Reason/Comments: hypernatremia Do you want consulting provider notified?: Already Contacted 03/14/20 08:50 Consult Physician Routine Consulting Provider: Jackie Will Consult Reason/Comments: MSSA bacteremia Do you want consulting provider notified?: Yes 03/15/20 08:53 Consult Physician Routine Consulting Provider: Zackary Nichols Consult Reason/Comments: Seizure activity Do you want consulting provider notified?: Yes Primary care physician: Bunny [facility] Course: This is a 79-year-old male with complex past medical history noted below who presented to the emergency room from a local halfway with altered mental status and unresponsiveness. Patient was evaluated in the ER and currently admits to the hospital for further management of his medical problems noted below. 1. Severe hypernatremia: Secondary to dehydration. Sodium level on presentation 168. Trending down. Patient was treated aggressively with IV fluid hydration. 2. Acute kidney injury, oliguric. With severe uremia. Nephrology following. Kidney ultrasound showed evidence of parenchymal thinning and cortical medullary disease. No hydronephrosis noted. 3. 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 Patient is currently receiving lactulose and rifaximin. We'll continue to monitor ammonia level daily. 4. Acute toxo metabolic encephalopathy secondary to above. Computed tomography scan of the head showed no acute intracranial findings 5. MSSA bacteremia: 1/2 sets on 03/13 positive for MSSA. Patient was given 1 dose of vancomycin and I transitioned him to IV cefazolin on 03/14/2020. Source of infection not clear. Antibiotic changed to Zosyn on 03/15. Infectious disease consult 6. Severe sepsis with septic shock requiring levophed. Source of infection not clear to me. Lactic acid trending down. 7. Underlying liver disease/cirrhosis, unclear etiology. Patient's son is not sure whether patient has underlying hepatitis. He told me his father was never a heavy drinker. I would order an acute hepatitis panel to rule out chronic hep C. 8. Suspected aspiration pneumonia: Started on IV Zosyn 9. New onset atrial fibrillation, started on IV amiodarone. Echocardiogram ordered and pending. TSH within normal range. 10. Stage I pressure ulcer of the left heel: Present on admission. No evidence of infection. 11. Moderate to severe malnutrition, started on tube feeding. Dietitian consulted. 12. Severe metabolic acidosis. Patient was on a bicarb drip. Currently on sodium bicarbonate 4 times a day 13. DVT prophylaxis: With subcu heparin 14. GI prophylaxis with IV Protonix 15. CODE STATUS: Patient is no code. Discussed with his son by me and ICU care over the phone on 03/15/2020 Patient on the morning of . For exact time that she's referred to nursing staff documentation. This is a 79-year-old male with complex past medical history noted below who presented to the emergency room from a local halfway with altered mental status and unresponsiveness. Patient was evaluated in the ER and currently admits to the hospital for further management of his medical problems noted below. 1. Severe hypernatremia: Secondary to dehydration. Sodium level on presentation 168. Trending down. Patient was treated aggressively with IV fluid hydration. 2. Acute kidney injury, oliguric. With severe uremia. Nephrology following. Kidney ultrasound showed evidence of parenchymal thinning and cortical medullary disease. No hydronephrosis noted. 3. 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 Patient is receiving lactulose and rifaximin. 4. Acute toxo metabolic encephalopathy secondary to above. Computed tomography scan of the head showed no acute intracranial findings 5. MSSA bacteremia: 1/2 sets on 03/13 positive for MSSA. Patient was given 1 dose of vancomycin and I transitioned him to IV cefazolin on 03/14/2020. Source of infection not clear. Antibiotic changed to Zosyn on 03/15. Infectious disease consult 6. Severe sepsis with septic shock requiring levophed. Source of infection not clear to me. Lactic acid trending down. 7. Underlying liver disease/cirrhosis, unclear etiology. Patient's son is not sure whether patient has underlying hepatitis. He told me his father was never a heavy drinker. I would order an acute hepatitis panel to rule out chronic hep C. 8. Suspected aspiration pneumonia: Started on IV Zosyn 9. New onset atrial fibrillation, started on IV amiodarone. Echocardiogram ordered and pending. TSH within normal range. 10. Stage I pressure ulcer of the left heel: Present on admission. No evidence of infection. 11. Moderate to severe malnutrition, started on tube feeding. Dietitian consulted. 12. Severe metabolic acidosis. Patient was on a bicarb drip. Currently on sodium bicarbonate 4 times a day 13. DVT prophylaxis: With subcu heparin 14. GI prophylaxis with IV Protonix 15. CODE STATUS: Patient is no code. Discussed with his son by me and ICU care over the phone on 03/15/2020 Plan - Discharge Summary Discharge Rx Participant: No New Discharge Prescriptions: No Action Nitroglycerin Sl Tabs [Nitrostat] 0.4 mg SUBLINGUAL Q5M PRN PRN Reason: Chest Pain Melatonin 5 mg PO HS PRN PRN Reason: Insomnia Acetaminophen Tab [Tylenol] 500 mg PO Q6HR PRN PRN Reason: Pain metFORMIN HCL [Glucophage] 500 mg PO BID@0900,1700 Lactulose 20 gm PO BID@0900,2100 Venlafaxine HCl [Effexor XR] 150 mg PO DAILY@0900 Tamsulosin [Flomax] 0.4 mg PO DAILY Spironolactone 25 mg PO DAILY@0900 Prostat 30 ml PO DAILY Multivitamins, Thera [Multivitamin (formulary)] 1 tab PO DAILY@0900 Furosemide [Lasix] 80 mg PO DAILY Gabapentin [Neurontin] 400 mg PO TID@0800,1400,2200 #9 cap Discharge Medication List Acetaminophen Tab [Tylenol] 500 mg PO Q6HR PRN 02/29/20 [History] Furosemide [Lasix] 80 mg PO DAILY 02/29/20 [History] Lactulose 20 gm PO BID@0900,2100 02/29/20 [History] Melatonin 5 mg PO HS PRN 02/29/20 [History] Multivitamins, Thera [Multivitamin (formulary)] 1 tab PO DAILY@0900 02/29/20 [History] Nitroglycerin Sl Tabs [Nitrostat] 0.4 mg SUBLINGUAL Q5M PRN 02/29/20 [History] Prostat 30 ml PO DAILY 02/29/20 [History] Spironolactone 25 mg PO DAILY@0900 02/29/20 [History] Tamsulosin [Flomax] 0.4 mg PO DAILY 02/29/20 [History] Venlafaxine HCl [Effexor XR] 150 mg PO DAILY@0900 02/29/20 [History] metFORMIN HCL [Glucophage] 500 mg PO BID@0900,1700 02/29/20 [History] Gabapentin [Neurontin] 400 mg PO TID@0800,1400,2200 #9 cap 03/03/20 [Rx] Follow up Appointment(s)/Referral(s): Bunny Adhikari DO [Primary Care Provider] - 1-2 days Discharge Disposition: - Preliminary Cause of Preliminary Cause of : Severe sepsis, kidney failure
--- NOTE | 2020-03-17 12:48 | CDI ---
Documentation Clarification Form Date: 03/15/2020 09:01:00 AM From: Sofía Trujillo RN, CCDS Admit Date: 03/13/2020 03:59:00 AM Patient Name: Ritchie Rosales Visit Number: [id number] Discharge Date: 03/16/2020 05:40:00 AM ATTENTION: The Clinical Documentation Specialists (CDI) and [facility] Coding Staff appreciate your assistance in clarifying documentation. Please respond to the clarification below the line at the bottom and electronically sign. The CDI & [facility] Coding staff will review the response and follow-up if needed. Please note: Queries are made part of the Legal Health Record. If you have any questions, please contact the author of this message via ITS. Dr. Jeana Rodriguez 03/14 at 03:00 oxygen saturations was documented at 89 % on O2 flow rate of 12 (High Flow), respiratory rate 22, pulse rate 107. 03/15 at 08:00 his is 94 % O2 flow rate 8, respiratory rate 35, pulse rate 122 blood pressure 103/59. Please provide a clinical diagnosis for the monitoring and treatment provided. History/Risk Factors: Coronary artery disease, Diabetes Mellitus, Liver Disease, Renal failure Clinical Indicators: 79-year-old male who present to ED on 03/13 from [facility] with altered mental status and unresponsiveness. He had severe hypernatremia secondary to dehydration, acute kidney injury and was ruled in for severe sepsis with septic shock. 03/14 Pulmonary progress note: Lungs were clear to auscultation and percussion, and with normal diaphragmatic excursion. No wheezes or rales noted. 03/15 Chest x-ray: There is some infiltrate left lung base that is the same or slightly worse than yesterday. No heart failure 03/15 Vital signs: 103/59 122 35 98.1 03/15 08:00 Pulse oximetry:94 % High Flow, O2 flow rate 8 03/15 03:59 Labs: WBC 17.6 PLT Count 97, Na+ 147, Chloride 112, Carbon Dioxide 15 BUN 161, CR 4.97 Lactic acid 8.1 10:59 ABG/CBG: pH 7.43 pO2 65 pCO2 27 HCO3 18 O2 Saturation 90.2 Treatment: ICU Monitoring Monitor O2 saturation (titrate) Duoneb 0.5 mg qid prn Monitor sodium levels and renal function, ammonia level Continuous Pulse ox In your professional opinion, can you please clarify if these findings signify one of the following conditions? Acute on Chronic Respiratory Failure, Hypoxic Acute on Chronic Respiratory Failure, Hypercapnia Other Diagnosis, please specify Unable to determine (Last Query Form Revision: February 2019) Acute on Chronic Respiratory Failure, Hypercapnia MTDD
== END 2020-03-16 05:40 | disposition expired | DRG 871 ==
LOC: EC 01:52 → 2SICU 03:59
PROVIDERS: ADMIT Internal Medicine; ATTEND Internal Medicine
PROC: 3E0G76Z Introduction of Nutritional Substance into Upper GI, Via Natural or Artificial Opening (ICD-10-PCS; principal; 2020-03-13)
PROC: 3E033XZ Introduction of Vasopressor into Peripheral Vein, Percutaneous Approach (ICD-10-PCS; 2020-03-13)
DX: A41.01 Sepsis due to Methicillin susceptible Staphylococcus aureus (principal); E43 Unspecified severe protein-calorie malnutrition; G92 Toxic encephalopathy; N17.0 Acute kidney failure with tubular necrosis; R65.21 Severe sepsis with septic shock; R40.2212 Coma scale, best verbal response, none, at arrival to emergency department; J69.0 Pneumonitis due to inhalation of food and vomit; J96.22 Acute and chronic respiratory failure with hypercapnia; E87.0 Hyperosmolality and hypernatremia; E87.2 Acidosis; R64 Cachexia; D69.6 Thrombocytopenia, unspecified; E11.9 Type 2 diabetes mellitus without complications; Z68.22 Body mass index [BMI] 22.0-22.9, adult; E78.5 Hyperlipidemia, unspecified; E86.0 Dehydration; E86.1 Hypovolemia; E87.6 Hypokalemia; F03.90 Unspecified dementia, unspecified severity, without behavioral disturbance, psychotic disturbance, mood disturbance, and anxiety; L89.621 Pressure ulcer of left heel, stage 1; K74.60 Unspecified cirrhosis of liver; K72.90 Hepatic failure, unspecified without coma; Z66 Do not resuscitate; R56.9 Unspecified convulsions; I25.10 Atherosclerotic heart disease of native coronary artery without angina pectoris; I48.91 Unspecified atrial fibrillation; J44.9 Chronic obstructive pulmonary disease, unspecified; K21.9 Gastro-esophageal reflux disease without esophagitis; S72.001G Fracture of unspecified part of neck of right femur, subsequent encounter for closed fracture with delayed healing; W19.XXXD Unspecified fall, subsequent encounter; Z91.81 History of falling; Z87.81 Personal history of (healed) traumatic fracture; R29.6 Repeated falls; Z79.84 Long term (current) use of oral hypoglycemic drugs; Z79.899 Other long term (current) drug therapy; Z96.642 Presence of left artificial hip joint; Z96.652 Presence of left artificial knee joint; Z71.3 Dietary counseling and surveillance; Z88.8 Allergy status to other drugs, medicaments and biological substances; Z87.19 Personal history of other diseases of the digestive system; R40.2332 Coma scale, best motor response, abnormal flexion, at arrival to emergency department; R40.2142 Coma scale, eyes open, spontaneous, at arrival to emergency department; Z82.0 Family history of epilepsy and other diseases of the nervous system
CPT/HCPCS: 36415; 36600; 51702; 70450; 71045; 76705; 76770; 80048; 80053; 80202; 81001; 82140; 82805; 83036; 83605; 83735; 84145; 84443; 85025; 85610; 85730; 86704; 86706; 86803; 87040; 87077; 87186; 87340; 93005; 93306; 95816; 96360; 96361; 99291